=== PATIENT | female | born 1930 | race Caucasian/White ===

== ENCOUNTER → 2016-07-08 | Outpatient (CLI) | payer OTHER ==
[~2016-07-08] MED LIST: ACETAMINOPHEN500 M5 PO; ALLERCLEAR10 MG PO; AMITRIPTYLINE25 MG PO; AMOXICILLIN500 MG PO; AMOXIL500 MG PO; ANTIVERT/2525 M1 PO; ANTIVERT12.5 MG PO; ANTIVERT25 MG PO; ARTIFICIAL TEAR30 M4 OU; ASPIR 8181 MG PO; ASPIR-TRIN325 MG PO; ASPIRIN NON-IR325 MG PO; ASPIRIN325 M2 PO; ASPIRIN325 MG PO; AUGMENTIN 875 M1 TA1 PO; BACTRIM DS 8001 TA1 PO; BACTROBAN2% NAS; BUMETANIDE1 MG PO; BUMETANIDE2 MG PO; BUMEX0.5 MG PO; BUMEX1 MG PO; BUMEX2 MG PO; CEPHALEXIN500 M1 PO; CETERIZINE; CHILDREN'S CLEA10 MG PO; CIPRO250 MG PO; CIPRO500 MG PO; CIPRODEX 0.3%-7.5 ML OT; CIPROFLOXACIN500 MG PO; CITRACAL LIQUI500 MG PO; CLARITIN10 MG PO; CLONIDINE HCL0.1 M1 PO; CLONIDINE0.1 MG PO; CLONIDINE0.2 MG PO; COLACE100 MG PO; COLESTIPOL HYDRO1 GM PO; COMBIVENT1 ARO IH; COMPLETE ALLERG25 M2 PO; COREG12.5 M1 PO; COREG25 MG PO; Carafate1 GM PO; DIOVAN320 MG PO; ELIMITE 5%60 GM PO; FLEXERIL10 MG PO; FLONASE 0.05% 121 EA NAS; FLONASE0.05 MG/AC NS; FLUTICASON0.05 MG/AC NAS; GENACOTE325 MG PO; GLIPIZIDE5 MG PO; GLUCOPHAGE500 M1 PO; HUMALOG100 U/ML; HUMALOG100 U/ML SC; HUMALOG100 UNIT/2 SQ; HUMULIN R100 U/ML SC; HYDROCODONE BIT1 T11 PO; IBU800 M1 PO; IBU800 MG PO; IBUPROFEN400 MG PO; INSULIN-HUMA100 U/ML; JANUVIA100 MG PO; JANUVIA50 MG PO; K-DUR 2020 MEQ PO; K-LOR 20MEQ20 ME1 PO; K-TAB20 MEQ PO; KEFLEX500 MG PO; KENALOG 0.025%15 GM T; KLOR-CON M2020 MEQ PO; LANTUS100 U/ML SC; LIPITOR40 MG PO; LISINOPRIL10 MG PO; LISINOPRIL20 MG PO; LMX4 4% TRANSPAR1 EA PO; LOPRESSOR25 MG PO; LOPRESSOR50 MG PO; LUTEIN; LUTEIN20 MG PO; MACROBID100 M1 PO; MECLIZINE HCL25 M1 PO; MECLIZINE HCL25 M2 PO; MECLIZINE25 MG PO; METFORMIN HCL500 MG PO; METFORMIN500 MG PO; MIRALAX17 GM PO; MIRALAX17 GM/PACK PO; MOTRIN800 MG PO; NORTRIPTYLINE H10 MG PO; NORTRIPTYLINE10 MG PO; NORVASC2.5 MG PO; NORVASC5 MG PO; NOVOLIN R100 U/ML SC; OSCAL,OYSTER S500 MG PO; OXYGEN NAS; OYSTER CALCIUM500 M1 PO; PATANOL 0.1% 5 M5 ML OU; PATANOL 5 ML5 ML OPH; PHENERGAN W/ DE30 ML PO; POTASSIUM CHLO20 MEQ PO; POTASSIUM20 MEQ PO; POTASSIUM99 M2 PO; PRAVACHOL10 MG PO; PRAVACHOL20 MG PO; PRAVACHOL40 MG PO; PRAVASTATIN SOD20 MG PO; PRESERVISION AR1 SGL PO; PRESERVISION LU1 SGL PO; PRESERVISION1 SGL PO; PROTONIX40 MG PO; REFRESH 1 ML1 ML OPH; SERTRALINE HYDR50 MG PO; SERTRALINE50 MG PO; THERAGRAN1 TA2 PO; TOBRAMYCIN 5 ML5 M1 OU; TOUJEO300 U/ML SC; TRAD5TAB1 PO; TYLENOL325 M1 PO; ULTRAM50 MG PO; VANCOMYCIN IV; VIBRAMYCIN100 MG PO; VICODIN 5/500 505 MG PO; VITAMIN D3 PO; VITAMIN E400 IU PO; ZANTAC150 MG PO; ZESTRIL,PRINIVI20 MG PO; ZITHROMAX Z PA250 MG PO; ZOFRAN4 MG PO; ZOLOFT25 MG PO; ZOLOFT50 MG PO; ZYRTEC10 MG PO; [UNRECOGNIZED DRUG - OTHER] PO; [UNRECOGNIZED DRUG - OTHER] PO; [UNRECOGNIZED DRUG - OTHER] PO; [UNRECOGNIZED DRUG - OTHER] PO
[2016-07-08 14:45] LABS: ALBUMIN 3.8 gm/dl (3.1-4.5); ALKALINE PHOSPHATASE 87 U/L (45-117); BILIRUBIN, TOTAL 0.4 mg/dl (0.2-1.0); BUN 22 mg/dl (7-24); CARBON DIOXIDE 31 mmol/L (21-32); CHLORIDE 99 mmol/L (98-107); EST GLOM FILT AFRICAN AMERICAN > 60 ml/min; FREE T4 0.84 ng/dl (0.76-1.46); GLUCOSE 338 mg/dL (65-99); POTASSIUM 3.3 mmol/L (3.5-5.1); SGOT/AST 25 IU/L (3-35); SGPT/ALT 36 U/L (12-78); SODIUM 139 mmol/L (136-145); THYROID STIM HORMONE (HS) 0.914 uIU/ml (0.358-4.75); TOTAL PROTEIN 7.3 gm/dL (6.4-8.2)
== END | disposition home or self-care (01) ==
LOC: LAB 13:26
PROVIDERS: Family Medicine
DX: K59.09 Other constipation (principal)

== ENCOUNTER 2016-09-12 15:12 | Emergency (ER) | payer OTHER ==
[~2016-09-12] VITALS: Ht 160 cm; Wt 72.6 kg
[2016-09-12] MEDS ORDERED: VITAMIN D5000 UNI1 PO (15:40)
[2016-09-12] MEDS ORDERED: ZYRTEC10 M3 PO (15:42)
[2016-09-12] MEDS ORDERED: METFORMIN HYDR500 MG PO (15:42)
[2016-09-12 16:13] LABS: BASO % 0.4 % (0.0-1.0); EOS # 0.2 10*3/uL (0.0-0.4); EOS % 2.8 % (1.0-4.0); HEMATOCRIT 36.3 % (37.0-47.0); HEMOGLOBIN 12.4 g/dl (12.0-16.0); LYMPH % 26.8 % (27.0-41.0); MEAN CELL VOLUME 89.9 fl (81.0-99.0); MEAN CORPUSCULAR HGB 30.7 pg (27.0-31.0); MEAN CORPUSCULAR HGB CONC 34.2 g/dl (33.0-37.0); MEAN PLATELET VOLUME 9.8 fl (9.6-12.3); MONO # 0.5 10*3/uL (0.1-1.0); MONO % 6.5 % (3.0-9.0); NEUT # 4.8 10*3/uL (2.3-7.9); NEUT % 63.2 % (47.0-73.0); PLATELET COUNT AUTOMATED 169 10*3/uL (130-400); RED BLOOD COUNT 4.04 10*6/uL (4.10-5.10); RED CELL DISTRI WIDTH 12.9 % (0-14.5); WHITE BLOOD COUNT 7.6 10*3/uL (4.8-10.8)
[2016-09-12 16:23] LABS: PROTHROMBIN TIME 10.2 SECONDS (9.0-12.4)
[2016-09-12 16:32] LABS: ALBUMIN 3.6 gm/dl (3.1-4.5); ALKALINE PHOSPHATASE 74 U/L (45-117); BILIRUBIN, TOTAL 0.3 mg/dl (0.2-1.0); BUN 15 mg/dl (7-24); CARBON DIOXIDE 24 mmol/L (21-32); CHLORIDE 103 mmol/L (98-107); CPK 104 U/L (26-192); EST GLOM FILT AFRICAN AMERICAN > 60 ml/min; GLUCOSE 94 mg/dL (65-99); LDH 302 U/L (84-246); MAGNESIUM 2.1 mg/dL (1.5-2.1); POTASSIUM 3.9 mmol/L (3.5-5.1); SGOT/AST 23 IU/L (3-35); SGPT/ALT 32 U/L (12-78); SODIUM 139 mmol/L (136-145); TOTAL PROTEIN 7.6 gm/dL (6.4-8.2)
[2016-09-12 16:33] LABS: CKMB 1.6 ng/ml (0.5-3.6)
[2016-09-12 16:38] LABS: TROPONIN I < 0.015 ng/ml (<0.045)
[2016-09-12 16:42] LABS: BILIRUBIN NEGATIVE (NEGATIVE); BLOOD NEGATIVE (NEGATIVE); CLARITY CLEAR (CLEAR); COLOR STRAW (YELLOW); GLUCOSE NEGATIVE (NEGATIVE); KETONE NEGATIVE (NEGATIVE); LEUKO ESTERASE NEGATIVE (NEGATIVE); NITRITE NEGATIVE (NEGATIVE); PROTEIN NEGATIVE (NEGATIVE); SPECIFIC GRAVITY <= 1.005 (1.005-1.030); UROBILINOGEN 0.2 E.U./dl (0.2-1.0)
[2016-09-12 17:11] LABS: RBC 0-2 rbc/hpf (0-2); URINE REFLEX COMMENT NO (NO)
[2016-09-12 17:19] VITALS: BP 160/70
== END 2016-09-12 18:16 | disposition home or self-care (01) ==
LOC: ED 15:12
PROVIDERS: Physician Assistant
DX: R42 Dizziness and giddiness (principal); Z90.49 Acquired absence of other specified parts of digestive tract; Z79.4 Long term (current) use of insulin; Z79.82 Long term (current) use of aspirin

== ENCOUNTER 2016-09-14 12:39 | Emergency (ER) | payer OTHER ==
[~2016-09-14] VITALS: Wt 72.6 kg
[~2016-09-14 12:39] MED LIST changes: +METFORMIN HYDR500 MG PO; +VITAMIN D5000 UNI1 PO; +ZYRTEC10 M3 PO
[2016-09-14 12:48] VITALS: BP 160/81
[2016-09-14 13:35] LABS: BASO % 0.3 % (0.0-1.0); EOS # 0.2 10*3/uL (0.0-0.4); EOS % 2.2 % (1.0-4.0); HEMATOCRIT 34.9 % (37.0-47.0); HEMOGLOBIN 11.8 g/dl (12.0-16.0); LYMPH # 1.3 10*3/uL (1.3-4.4); LYMPH % 17.1 % (27.0-41.0); MEAN CORPUSCULAR HGB 30.1 pg (27.0-31.0); MEAN CORPUSCULAR HGB CONC 33.8 g/dl (33.0-37.0); MEAN PLATELET VOLUME 9.6 fl (9.6-12.3); MONO # 0.5 10*3/uL (0.1-1.0); MONO % 6.9 % (3.0-9.0); NEUT # 5.7 10*3/uL (2.3-7.9); NEUT % 73.1 % (47.0-73.0); PLATELET COUNT AUTOMATED 169 10*3/uL (130-400); RED BLOOD COUNT 3.92 10*6/uL (4.10-5.10); RED CELL DISTRI WIDTH 12.9 % (0-14.5); WHITE BLOOD COUNT 7.8 10*3/uL (4.8-10.8)
[2016-09-14 13:42] LABS: PROTHROMBIN TIME 10.6 SECONDS (9.0-12.4)
[2016-09-14 13:50] LABS: ALBUMIN 3.6 gm/dl (3.1-4.5); ALKALINE PHOSPHATASE 70 U/L (45-117); BILIRUBIN, TOTAL 0.4 mg/dl (0.2-1.0); BUN 21 mg/dl (7-24); CARBON DIOXIDE 25 mmol/L (21-32); CHLORIDE 103 mmol/L (98-107); EST GLOM FILT AFRICAN AMERICAN > 60 ml/min; GLUCOSE 73 mg/dL (65-99); MAGNESIUM 2.1 mg/dL (1.5-2.1); POTASSIUM 3.3 mmol/L (3.5-5.1); SGOT/AST 18 IU/L (3-35); SGPT/ALT 27 U/L (12-78); SODIUM 139 mmol/L (136-145); TOTAL PROTEIN 7.3 gm/dL (6.4-8.2)
[2016-09-14 13:52] LABS: TROPONIN I < 0.015 ng/ml (<0.045)
[2016-09-14 13:56] LABS: BILIRUBIN NEGATIVE (NEGATIVE); BLOOD NEGATIVE (NEGATIVE); CLARITY SL CLOUDY (CLEAR); COLOR YELLOW (YELLOW); GLUCOSE NEGATIVE (NEGATIVE); KETONE NEGATIVE (NEGATIVE); LEUKO ESTERASE NEGATIVE (NEGATIVE); NITRITE NEGATIVE (NEGATIVE); PROTEIN NEGATIVE (NEGATIVE); SPECIFIC GRAVITY 1.015 (1.005-1.030); UROBILINOGEN 0.2 E.U./dl (0.2-1.0)
[2016-09-14 14:05] LABS: RBC 0-2 rbc/hpf (0-2)
[2016-09-14 14:06] LABS: BACTERIA 1+; URINE REFLEX COMMENT NO (NO)
[2016-09-15] MEDS ORDERED: TOBRADEX 0.1%-2.5 M1 OPH (12:26)
== END 2016-09-14 14:48 | disposition home or self-care (01) ==
LOC: ED 12:39
PROVIDERS: Nurse Practitioner Family
DX: R42 Dizziness and giddiness (principal); I50.9 Heart failure, unspecified; J44.9 Chronic obstructive pulmonary disease, unspecified; F32.9 Major depressive disorder, single episode, unspecified; I10 Essential (primary) hypertension; K21.9 Gastro-esophageal reflux disease without esophagitis; E78.5 Hyperlipidemia, unspecified; E11.65 Type 2 diabetes mellitus with hyperglycemia; M19.90 Unspecified osteoarthritis, unspecified site; E55.9 Vitamin D deficiency, unspecified; Z90.49 Acquired absence of other specified parts of digestive tract; Z96.651 Presence of right artificial knee joint; Z90.710 Acquired absence of both cervix and uterus; Z79.82 Long term (current) use of aspirin; Z79.899 Other long term (current) drug therapy

== ENCOUNTER → 2016-09-21 | Day surgery (SDC) | payer OTHER ==
[~2016-09-21] VITALS: Ht 160 cm; Wt 74.8 kg
[~2016-09-21] MED LIST changes: +TOBRADEX 0.1%-2.5 M1 OPH
--- NOTE | ~2016-09-21 | O ---
[place], [place] OPERATIVE NOTE [id number] UNIT #: [id number] ROOM: DO[facility] BIRTH[facility] [birth year] DOS: 09/21/2016 GASTROENDOSCOPIC REPORT HISTORY OF PRESENT ILLNESS: An 86-year-old patient who has presented with chief complaint of diarrhea, abdominal pain, cramp, undergoing investigation. ALLERGIES: No known medications. FAMILY HISTORY: Noncontributory. 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 PAST MEDICAL HISTORY: Hypertension, diabetes mellitus, hypercholesterolemia, diarrhea. SOCIAL HISTORY: Nonsmoker, nonalcohol consumer. PROCEDURE: Today's procedure part of investigation is colonoscopy plus random biopsy plus piecemeal polypectomy of sigmoid colon sessile polyps. PREMEDICATION: Versed and Diprivan. SCOPE: Olympus forward-viewing colonoscope 10L video. REPORT: After putting the patient in the left lateral position and application of lubricant to rectal pouch and digital examination, scope was introduced. Thereafter, under direct visualization, I advanced through the length of colon without difficulty. Sessile polypoid lesion in sigmoid colon with piecemeal polypectomy was removed. Diverticulosis of sigmoid colon moderate degree was identified. Tortuosity of colon was appreciated. Scope negotiated all the way to base of cecum. Ileocecal valve was defined. Appendiceal orifice was photographed. Scope was gradually withdrawn from ascending, transverse, and descending colon. The patient extubated after random biopsy of colon was for microscopic colitis. IMPRESSION: Sigmoid diverticulosis of moderate degree, sessile polypoid lesion in sigmoid colon, status post piecemeal polypectomy, status post random biopsy of the transverse colon for microscopic colitis ruling out, also tortuosity of colon, particularly in left colon. PLAN AND DISCUSSION: The patient was advised to abstain from intake of MiraLax, which I believe to be her culprit in her diarrhea and abdominal cramp. Limited MiraLax, only 2 p.r.n. use or if she has to Monday, Monday, Monday half a dose intake to soften her stool and allow her evacuation. At this stage, she is dependent on satisfaction from her bowel movement. We will with high fiber diet. Thank you very much indeed. [place], [place] OPERATIVE NOTE NAME: JOHANNE MALDONADO UNIT #: [id number] ROOM: DOCTOR: AFUA MONTOYA,NOAH BIRTHDATE: [birth year] Sincerely yours. NOAH CAAL MD CM:OPRECORD:OPERATIVE NOTE 1051 NOAH CAAL MD 09/21/16 1208 interface
[2016-09-21 08:30] VITALS: BP 131/77
[2016-09-21 10:45] VITALS: BP 126/51
[2016-09-21 11:00] VITALS: BP 134/69
[2016-09-21 11:15] VITALS: BP 139/73
== END | disposition home or self-care (01) ==
LOC: SDC 09-16 08:45
DX: K63.5 Polyp of colon (principal); C76.0 Malignant neoplasm of head, face and neck; I10 Essential (primary) hypertension; E11.9 Type 2 diabetes mellitus without complications; E78.00 Pure hypercholesterolemia, unspecified; K57.30 Diverticulosis of large intestine without perforation or abscess without bleeding; F32.9 Major depressive disorder, single episode, unspecified; J44.9 Chronic obstructive pulmonary disease, unspecified; M81.0 Age-related osteoporosis without current pathological fracture; M19.90 Unspecified osteoarthritis, unspecified site; Z90.710 Acquired absence of both cervix and uterus; Z95.0 Presence of cardiac pacemaker; Z82.3 Family history of stroke; Z82.49 Family history of ischemic heart disease and other diseases of the circulatory system; Z87.891 Personal history of nicotine dependence

== ENCOUNTER → 2016-10-06 | Outpatient (CLI) | payer OTHER | END | disposition home or self-care (01) | LOC: RAD 13:11 | DX: J44.9 Chronic obstructive pulmonary disease, unspecified (principal); I10 Essential (primary) hypertension; E11.9 Type 2 diabetes mellitus without complications; Z95.0 Presence of cardiac pacemaker ==

== ENCOUNTER 2016-10-11 00:26 | Inpatient (IN) | payer OTHER ==
[~2016-10-11] VITALS: Ht 160 cm; Wt 76.3 kg
[2016-10-11] VITALS (12 sets, daily range): BP systolic 116–158; BP diastolic 52–98
--- NOTE | ~2016-10-11 | ST ---
[place], [place] EXERCISE STRESS TEST REPORT NAME: JOHANNE MALDONADO UNIT #: [id number] ROOM: 503 DOCTOR: SADIQ HUDSON MD BIRTHDATE: [birth year] DOS: 10/11/2016 Lexiscan portion of the test was dictated earlier and the patient received 12.7 millicurie of sestamibi at rest ____ was obtained. Gated imaage showed an ejection fraction of 72% and diastolic and systolic dimensions were normal. SPECT imaging revealed normal perfusion without any reversibility The right ventricle is normal, left ventricular wall ____ normal limits. FINAL IMPRESSION: Normal Lexiscan Cardiolite SPECT imaging study without ischemia. Ejection fraction well preserved ____ SPECT. Right ventricle is normal. Left ventricle ____ normal. ____ ratio within normal limits. SADIQ HUDSON MD CM:STRESS:EXERCISE STRESS TEST REPORT 1500 [id number] SADIQ HUDSON MD
--- NOTE | ~2016-10-11 | PR ---
[place], [place] PROGRESS NOTE NAME: [facility] [id number] UNIT #: [id number] ROOM: 503 DOCTOR: FLOR SIDDIQI MD BIRTHDATE: [birth year] DOS: SUBJECTIVE: This is a patient that I see regularly in my office and I also saw her in this hospital and put in a dual chamber pacemaker for severe bradycardia in 2012, and for whatever reason, Dr. Telles was consulted as the sample selector. She had left lateral chest pain and also left-sided abdominal pain as well, it feels that somebody is punching her. Dr. Telles did a stress Cardiolite on her and did not demonstrate any ischemia. She still has the same discomfort. She has not had any nausea or vomiting, no blood in the stools. She has not had any cough. OBJECTIVE: GENERAL: She looks well. Complexion is fine. NECK: Pulses are regular. JVP is normal. LUNGS: Breath sounds are diminished bilaterally. IMPRESSION: This patient has a dual chamber pacemaker for severe symptomatic bradycardia, which has been interrogated in my office and is functioning normally. Chest and abdominal pain is noncardiac. Stress test is negative. From Cardiac standpoint, she may be discharged home and I would see her in my office as previously scheduled. FLOR SIDDIQI MD CM:PNTRANS [phone] FLOR SIDDIQI MD 10/14/16 0116 interface
--- NOTE | ~2016-10-11 | CON ---
[place], [place] REPORT OF CONSULTATION NAME: [id number] UNIT #: [id number] ROOM: 503 DOCTOR: JETHRO TOLENTINO DPM BIRTHDATE: [birth year] DOS: 10/13/2016 SUBJECTIVE: The patient presents as an 86-year-old female with elongated, thickened, ingrown nails of the third and fourth toes of both feet. PAST MEDICAL HISTORY: Includes acute renal failure, asymptomatic bacteremia, ataxia, benign positional vertigo, CHF, COPD, depression, diabetes, essential hypertension, general weakness, GERD, history of stroke with residual right facial droop, hyperlipidemia, hyperglycemia due to type 2 diabetes, hypokalemia, osteoarthritis, urinary incontinence, vertigo, vitamin D deficiency. PAST SURGICAL HISTORY: Appendectomy, knee replacement, right knee. Left cataract surgery, permanent cardiac pacemaker placement, cardiac catheterization, cholecystectomy, hysterectomy, and tonsillectomy. SOCIAL HISTORY: Denies alcohol, illicit drug use or tobacco. FAMILY HISTORY: Mother at 87 of dementia. Father at 93 of stroke. ALLERGIES: No known allergies. PHYSICAL EXAMINATION: EXTREMITIES: Lower extremity examination: Pedal pulses diminished with decreased hair growth, nail thickening, pigmentary discoloration, temperature changes and edema. Crumbly, thickened, yellow, dystrophic, mycotic nails, toes 3 and 4 bilateral foot, incurvated nail border medial third right toe with subungual inflammation, localized erythema, but no signs of infection. ASSESSMENT: Onychomycosis, peripheral vascular disease, onychocryptosis. PLAN: Evaluation and management. Debrided nails third and fourth toes bilateral, debrided incurvated nail border, third right toe. Thank you for the kind consultation. JETHRO TOLENTINO DPM CM:CONSTR:REPORT OF CONSULTATION 1222 10/14/16 0347 interface
--- NOTE | ~2016-10-11 | CON ---
[place], [place] REPORT OF CONSULTATION NAME: JOHANNE MALDONADO UNIT #: [id number] ROOM: 503 DOCTOR: SADIQ HUDSON MD BIRTHDATE: [birth year] DOS: 10/11/2016 HISTORY OF PRESENT ILLNESS: The patient is an 86-year-old female with a past medical history of hypertension, came in last night. She had significant pain across the left precordial area. She does have history of permanent pacemaker, history of congestive heart failure in the past. The patient describes the pain as dull in nature, radiating down the left side. The patient, as mentioned, she had a pacemaker, no acute EKG changes suggestion of myocardial injury or infarction. Cardiac enzymes have been normal so far, the patient has been scheduled for a stress test today. PAST MEDICAL HISTORY: Significant for renal failure, asymptomatic bacteriuria, benign positional vertigo, congestive heart failure, COPD, depression, diabetes mellitus and hyperlipidemia. PAST SURGICAL HISTRORY: Knee replacement, cataract surgery, permanent pacemaker, cholecystectomy and previous cardiac catheterization without any stents. SOCIAL HISTORY: Denies any drug abuse or alcohol abuse. FAMILY HISTORY: Positive for coronary artery disease. ALLERGIES: None. HOME MEDICATIONS: Amlodipine, carvedilol, aspirin, insulin. REVIEW OF SYSTEMS: CONSTITUTIONAL: No fever, no chills. HEENT: No visual disturbances or hearing problems. CARDIOVASCULAR: As described in HPI. GASTROINTESTINAL: No nausea, no vomiting. RESPIRATORY: No shortness of breath. GENITOURINARY: No dysuria, hematuria. NEUROLOGIC: Intact. PSYCHIATRIC: Intact. ENDOCRINE: Intact. SKIN: Normal. PHYSICAL EXAMINATION: VITAL SIGNS: Blood pressure is 140/60. The patient is in sinus rhythm, no acute EKG changes. HEENT: Unremarkable. NECK: Supple, no JVD, no thyromegaly, and no lymphadenopathy. LUNGS: Clear to auscultation and percussion. HEART: Heart rate is regular rate and rhythm. ABDOMEN: Obese, soft, nontender, good bowel sounds. EXTREMITIES: No edema. NEUROLOGIC: Stable. [place], [place] REPORT OF CONSULTATION NAME: JOHANNE MALDONADO UNIT #: [id number] ROOM: 503 DOCTOR: SADIQ HUDSON MD BIRTHDATE: [birth year] LABORATORY DATA: Electrolytes are normal. Creatinine is normal. BUN is 24, creatinine is 1.2. Liver functions are normal. INR is normal, hemoglobin and hematocrit ____, platelet count is normal. Chest x-ray, no acute pulmonary abnormalities. IMPRESSION: The patient with chest pain, acute renal failure. Creatinine was mildly elevated blood pressure, hypertension, diabetes mellitus, and permanent pacemaker. The patient felt like her alarm went off the pacemaker. I am going to have the pacer interrogated. Cardiac status appears to be stable. RECOMMENDATIONS: Continue the present care. We will proceed with Lexiscan Cardiolite stress test. Continue her home medications. Continue to monitor and I will follow up. SADIQ HUDSON MD CM:CONSTR:REPORT OF CONSULTATION 0731 10/11/16 0843 interface
[~2016-10-11 00:26] MED LIST changes: +OMNICEF300 MG PO
[2016-10-11] MEDS ORDERED: PRAVACHOL20 MG PO (00:37)
[2016-10-11] MEDS ORDERED: DYAZIDE 25 MG-31 CAP PO (00:38)
[2016-10-11 00:55] LABS: BASO % 0.5 % (0.0-1.0); EOS # 0.3 10*3/uL (0.0-0.4); EOS % 5.1 % (1.0-4.0); HEMATOCRIT 35.1 % (37.0-47.0); HEMOGLOBIN 11.8 g/dl (12.0-16.0); LYMPH # 1.9 10*3/uL (1.3-4.4); LYMPH % 28.1 % (27.0-41.0); MEAN CELL VOLUME 88.6 fl (81.0-99.0); MEAN CORPUSCULAR HGB 29.8 pg (27.0-31.0); MEAN CORPUSCULAR HGB CONC 33.6 g/dl (33.0-37.0); MEAN PLATELET VOLUME 10.5 fl (9.6-12.3); MONO # 0.5 10*3/uL (0.1-1.0); MONO % 7.7 % (3.0-9.0); NEUT # 3.9 10*3/uL (2.3-7.9); NEUT % 58.1 % (47.0-73.0); PLATELET COUNT AUTOMATED 162 10*3/uL (130-400); RED BLOOD COUNT 3.96 10*6/uL (4.10-5.10); RED CELL DISTRI WIDTH 12.8 % (0-14.5); WHITE BLOOD COUNT 6.7 10*3/uL (4.8-10.8)
[2016-10-11 01:05] LABS: PROTHROMBIN TIME 10.3 SECONDS (9.0-12.4)
[2016-10-11 01:11] LABS: ALBUMIN 3.7 gm/dl (3.1-4.5); ALKALINE PHOSPHATASE 80 U/L (45-117); BILIRUBIN, TOTAL 0.3 mg/dl (0.2-1.0); BUN 24 mg/dl (7-24); CARBON DIOXIDE 25 mmol/L (21-32); CHLORIDE 102 mmol/L (98-107); EST GLOM FILT AFRICAN AMERICAN 51 ml/min; GLUCOSE 318 mg/dL (65-99); MAGNESIUM 2.4 mg/dL (1.5-2.1); POTASSIUM 3.6 mmol/L (3.5-5.1); SGOT/AST 20 IU/L (3-35); SGPT/ALT 30 U/L (12-78); SODIUM 135 mmol/L (136-145); TOTAL PROTEIN 7.3 gm/dL (6.4-8.2)
[2016-10-11 01:13] LABS: TROPONIN I < 0.015 ng/ml (<0.045)
[2016-10-11] MEDS ORDERED: VITAMIN D50000 I3 PO (05:53)
[2016-10-11 06:30] LABS: CKMB 1.4 ng/ml (0.5-3.6); CPK 84 U/L (26-192)
[2016-10-11 06:55] LABS: TROPONIN I < 0.015 ng/ml (<0.045)
[2016-10-11 12:22] LABS: CKMB 1.5 ng/ml (0.5-3.6); CPK 84 U/L (26-192)
[2016-10-11 12:25] LABS: TROPONIN I < 0.015 ng/ml (<0.045)
[2016-10-11 18:52] LABS: CKMB 1.2 ng/ml (0.5-3.6); CPK 87 U/L (26-192); TROPONIN I < 0.015 ng/ml (<0.045)
[2016-10-12 00:12] VITALS: BP 133/89
[2016-10-12 07:15] LABS: BASO % 0.5 % (0.0-1.0); EOS # 0.3 10*3/uL (0.0-0.4); EOS % 5.9 % (1.0-4.0); HEMATOCRIT 34.7 % (37.0-47.0); HEMOGLOBIN 11.7 g/dl (12.0-16.0); LYMPH # 1.7 10*3/uL (1.3-4.4); LYMPH % 29.9 % (27.0-41.0); MEAN CELL VOLUME 87.6 fl (81.0-99.0); MEAN CORPUSCULAR HGB 29.5 pg (27.0-31.0); MEAN CORPUSCULAR HGB CONC 33.7 g/dl (33.0-37.0); MEAN PLATELET VOLUME 10.5 fl (9.6-12.3); MONO # 0.4 10*3/uL (0.1-1.0); MONO % 7.3 % (3.0-9.0); NEUT # 3.2 10*3/uL (2.3-7.9); NEUT % 55.9 % (47.0-73.0); PLATELET COUNT AUTOMATED 179 10*3/uL (130-400); RED BLOOD COUNT 3.96 10*6/uL (4.10-5.10); RED CELL DISTRI WIDTH 12.6 % (0-14.5); WHITE BLOOD COUNT 5.8 10*3/uL (4.8-10.8)
[2016-10-12 07:30] LABS: HEMOGLOBIN A1c 8.1 % (4.8-5.6)
[2016-10-12 07:36] LABS: ALBUMIN 3.6 gm/dl (3.1-4.5); ALKALINE PHOSPHATASE 78 U/L (45-117); BILIRUBIN, TOTAL 0.4 mg/dl (0.2-1.0); BUN 21 mg/dl (7-24); CARBON DIOXIDE 29 mmol/L (21-32); CHLORIDE 104 mmol/L (98-107); CHOLESTEROL 139 mg/dL (<200); EST GLOM FILT AFRICAN AMERICAN > 60 ml/min; FREE T4 0.87 ng/dl (0.76-1.46); GLUCOSE 184 mg/dL (65-99); HDL CHOLESTEROL 47 mg/dl (40-60); LDL CHOLESTEROL 68 mg/dL (9-159); MAGNESIUM 2.5 mg/dL (1.5-2.1); PHOSPHOROUS 3.9 mg/dL (2.5-4.9); POTASSIUM 3.1 mmol/L (3.5-5.1); SGOT/AST 16 IU/L (3-35); SGPT/ALT 27 U/L (12-78); SODIUM 142 mmol/L (136-145); TRIGLYCERIDES 119 mg/dl (<150); VLDL CHOLESTEROL 24 mg/dL (6-40)
[2016-10-12 07:44] LABS: PROTHROMBIN TIME 10.2 SECONDS (9.0-12.4)
[2016-10-12 08:00] VITALS: BP 118/54
[2016-10-12 08:40] LABS: FOLIC ACID 22.54 ng/mL (>5.38); VITAMIN D, 25-HYDROXY 51.1 ng/mL (30-100)
[2016-10-12 12:00] VITALS: BP 110/59
[2016-10-12 16:00] VITALS: BP 129/79
[2016-10-12 20:00] VITALS: BP 105/71
[2016-10-13 00:08] VITALS: BP 145/86
[2016-10-13 06:50] LABS: POTASSIUM 4.1 mmol/L (3.5-5.1)
[2016-10-13 08:00] VITALS: BP 146/72
[2016-10-13 12:00] VITALS: BP 156/80
== END 2016-10-13 14:05 | disposition home or self-care (01) | DRG 683 ==
LOC: ED 00:26 → EDHOLD 01:50 → 5E 01:50
PROVIDERS: Emergency Medicine Emergency Medical Services; Internal Medicine; Student in an Organized Health Care Education/Training Program
PROC: 0HBRXZZ Excision of Toe Nail, External Approach (ICD-10-PCS; principal; 2016-10-13)
DX: N17.0 Acute kidney failure with tubular necrosis (principal); I50.32 Chronic diastolic (congestive) heart failure; E11.51 Type 2 diabetes mellitus with diabetic peripheral angiopathy without gangrene; I11.0 Hypertensive heart disease with heart failure; F33.9 Major depressive disorder, recurrent, unspecified; R07.89 Other chest pain; E11.65 Type 2 diabetes mellitus with hyperglycemia; B35.1 Tinea unguium; J44.9 Chronic obstructive pulmonary disease, unspecified; J01.10 Acute frontal sinusitis, unspecified; M19.91 Primary osteoarthritis, unspecified site; E78.2 Mixed hyperlipidemia; H81.10 Benign paroxysmal vertigo, unspecified ear; R32 Unspecified urinary incontinence; E55.9 Vitamin D deficiency, unspecified; K21.9 Gastro-esophageal reflux disease without esophagitis; L60.0 Ingrowing nail; Z96.651 Presence of right artificial knee joint; Z98.42 Cataract extraction status, left eye; Z90.49 Acquired absence of other specified parts of digestive tract; Z90.710 Acquired absence of both cervix and uterus; Z83.3 Family history of diabetes mellitus; Z80.3 Family history of malignant neoplasm of breast; Z82.3 Family history of stroke; Z95.0 Presence of cardiac pacemaker; Z84.89 Family history of other specified conditions; Z82.49 Family history of ischemic heart disease and other diseases of the circulatory system; Z79.82 Long term (current) use of aspirin; Z79.4 Long term (current) use of insulin; Z79.899 Other long term (current) drug therapy; I69.392 Facial weakness following cerebral infarction

== ENCOUNTER 2016-11-05 10:43 | Emergency (ER) | payer OTHER ==
[~2016-11-05] VITALS: Ht 160 cm; Wt 73.9 kg
[~2016-11-05 10:43] MED LIST changes: +DYAZIDE 25 MG-31 CAP PO; +VITAMIN D50000 I3 PO
[2016-11-05 11:25] VITALS: BP 124/67
[2016-11-05] MEDS ORDERED: NAPROSYN500 MG PO (11:56)
[2016-11-05] MEDS ORDERED: CYCLOBENZAPRINE5 M3 PO (11:56)
[2016-12-08] MEDS ORDERED: AUGMENTIN 875-875 MG PO (15:24)
[2016-12-14] MEDS ORDERED: VITAMIN D50000 I3 PO (20:51)
[2016-12-15] MEDS ORDERED: DUONEB 3 MG/3 ML3 M1 INH (10:04)
[2016-12-15] MEDS ORDERED: METFORMIN500 MG PO (10:06)
[2016-12-18] MEDS ORDERED: ELIQUIS5 M1 PO (14:29)
[2016-12-18] MEDS ORDERED: BACTRIM DS 8001 TAB PO (14:29)
== END 2016-11-05 12:00 | disposition home or self-care (01) ==
LOC: ED 10:43
DX: M54.32 Sciatica, left side (principal); Z79.82 Long term (current) use of aspirin; Z79.4 Long term (current) use of insulin; Z90.49 Acquired absence of other specified parts of digestive tract; Z79.899 Other long term (current) drug therapy

== ENCOUNTER 2016-11-06 16:52 | Emergency (ER) | payer OTHER ==
[~2016-11-06] VITALS: Ht 160 cm; Wt 73.9 kg
[~2016-11-06 16:52] MED LIST changes: +CYCLOBENZAPRINE5 M3 PO; +NAPROSYN500 MG PO
[2016-11-06 16:57] VITALS: BP 166/80
[2016-11-06 17:20] LABS: BASO % 0.4 % (0.0-1.0); EOS # 0.1 10*3/uL (0.0-0.4); EOS % 2.1 % (1.0-4.0); HEMATOCRIT 37.6 % (37.0-47.0); HEMOGLOBIN 12.7 g/dl (12.0-16.0); LYMPH # 1.6 10*3/uL (1.3-4.4); LYMPH % 33.6 % (27.0-41.0); MEAN CELL VOLUME 88.7 fl (81.0-99.0); MEAN CORPUSCULAR HGB CONC 33.8 g/dl (33.0-37.0); MONO # 0.4 10*3/uL (0.1-1.0); MONO % 8.1 % (3.0-9.0); NEUT # 2.6 10*3/uL (2.3-7.9); NEUT % 55.2 % (47.0-73.0); PLATELET COUNT AUTOMATED 150 10*3/uL (130-400); RED BLOOD COUNT 4.24 10*6/uL (4.10-5.10); RED CELL DISTRI WIDTH 13.1 % (0-14.5); WHITE BLOOD COUNT 4.8 10*3/uL (4.8-10.8)
[2016-11-06 17:34] LABS: ALBUMIN 4.2 gm/dl (3.1-4.5); BILIRUBIN, TOTAL 0.7 mg/dl (0.2-1.0); POTASSIUM 4.3 mmol/L (3.5-5.1); TOTAL PROTEIN 7.7 gm/dL (6.4-8.2)
== END 2016-11-06 19:34 | disposition home or self-care (01) ==
LOC: ED 16:52
PROVIDERS: Nurse Practitioner Family
DX: R60.0 Localized edema (principal); Z90.49 Acquired absence of other specified parts of digestive tract; Z95.0 Presence of cardiac pacemaker; Z95.5 Presence of coronary angioplasty implant and graft; Z79.4 Long term (current) use of insulin; Z79.82 Long term (current) use of aspirin; Z79.899 Other long term (current) drug therapy

== ENCOUNTER 2016-11-08 11:25 | Emergency (ER) | payer OTHER ==
[~2016-11-08] VITALS: Ht 160 cm; Wt 75.7 kg
[2016-11-08 11:34] VITALS: BP 168/90
[2016-11-08 12:29] LABS: BASO % 0.4 % (0.0-1.0); EOS # 0.1 10*3/uL (0.0-0.4); EOS % 2.2 % (1.0-4.0); HEMATOCRIT 36.3 % (37.0-47.0); LYMPH # 1.2 10*3/uL (1.3-4.4); LYMPH % 25.7 % (27.0-41.0); MEAN CELL VOLUME 89.4 fl (81.0-99.0); MEAN CORPUSCULAR HGB 29.6 pg (27.0-31.0); MEAN CORPUSCULAR HGB CONC 33.1 g/dl (33.0-37.0); MEAN PLATELET VOLUME 10.6 fl (9.6-12.3); MONO # 0.4 10*3/uL (0.1-1.0); MONO % 7.9 % (3.0-9.0); NEUT # 2.9 10*3/uL (2.3-7.9); NEUT % 63.1 % (47.0-73.0); PLATELET COUNT AUTOMATED 156 10*3/uL (130-400); RED BLOOD COUNT 4.06 10*6/uL (4.10-5.10); WHITE BLOOD COUNT 4.6 10*3/uL (4.8-10.8)
[2016-11-08 12:43] LABS: ALBUMIN 4.1 gm/dl (3.1-4.5); ALKALINE PHOSPHATASE 96 U/L (45-117); BILIRUBIN, TOTAL 0.6 mg/dl (0.2-1.0); BUN 19 mg/dl (7-24); CARBON DIOXIDE 33 mmol/L (21-32); CHLORIDE 101 mmol/L (98-107); EST GLOM FILT AFRICAN AMERICAN > 60 ml/min; GLUCOSE 341 mg/dL (65-99); POTASSIUM 4.6 mmol/L (3.5-5.1); SGOT/AST 15 IU/L (3-35); SGPT/ALT 25 U/L (12-78); SODIUM 139 mmol/L (136-145); TOTAL PROTEIN 7.5 gm/dL (6.4-8.2)
[2016-11-08 13:38] LABS: BILIRUBIN NEGATIVE (NEGATIVE); BLOOD NEGATIVE (NEGATIVE); CLARITY CLEAR (CLEAR); COLOR YELLOW (YELLOW); GLUCOSE 3+ (NEGATIVE); KETONE NEGATIVE (NEGATIVE); LEUKO ESTERASE NEGATIVE (NEGATIVE); NITRITE NEGATIVE (NEGATIVE); PH 5.5 (5.0-9.0); PROTEIN NEGATIVE (NEGATIVE); UROBILINOGEN 0.2 E.U./dl (0.2-1.0)
[2016-11-08 13:44] LABS: BACTERIA TRACE; URINE REFLEX COMMENT NO (NO)
== END 2016-11-08 14:48 | disposition home or self-care (01) ==
LOC: ED 11:25
PROVIDERS: Registered Nurse
DX: M25.561 Pain in right knee (principal); Z90.49 Acquired absence of other specified parts of digestive tract; Z96.651 Presence of right artificial knee joint; Z95.0 Presence of cardiac pacemaker; Z90.710 Acquired absence of both cervix and uterus; Z98.42 Cataract extraction status, left eye; Z79.82 Long term (current) use of aspirin; Z79.899 Other long term (current) drug therapy; W19.XXXA Unspecified fall, initial encounter; Y93.89 Activity, other specified; Y92.89 Other specified places as the place of occurrence of the external cause; Y99.9 Unspecified external cause status

== ENCOUNTER 2016-11-09 16:18 | Inpatient (IN) | payer OTHER ==
[~2016-11-09] VITALS: Ht 160 cm; Wt 79.5 kg
--- NOTE | ~2016-11-09 | EKG ---
[place], [place] ELECTROCARDIOGRAM REPORT NAME: JOHANNE MALDONADO UNIT #: [id number] ROOM: 421 DOCTOR: FLOR SIDDIQI MD BIRTHDATE: [birth year] DOS: 11/09/2016 TIME: 1642 hours. Atrial pacing at 102 beats per minute. Left anterior hemiblock with mild prolonged QRS interval. An abnormal ECG. No previous tracing is available for comparison. FLRO SIDDIQI MD CM:EKGRPT:ELECTROCARDIOGRAM REPORT 1127 1223 FLOR SIDDIQI MD
[2016-11-09 16:32] VITALS: BP 134/66; BP 174/66
[2016-11-09 17:10] LABS: BASO % 0.4 % (0.0-1.0); EOS # 0.1 10*3/uL (0.0-0.4); EOS % 2.4 % (1.0-4.0); HEMATOCRIT 36.5 % (37.0-47.0); HEMOGLOBIN 12.4 g/dl (12.0-16.0); LYMPH # 1.7 10*3/uL (1.3-4.4); LYMPH % 31.9 % (27.0-41.0); MEAN CELL VOLUME 88.2 fl (81.0-99.0); MEAN PLATELET VOLUME 10.2 fl (9.6-12.3); MONO # 0.4 10*3/uL (0.1-1.0); NEUT # 3.1 10*3/uL (2.3-7.9); NEUT % 57.6 % (47.0-73.0); PLATELET COUNT AUTOMATED 169 10*3/uL (130-400); RED BLOOD COUNT 4.14 10*6/uL (4.10-5.10); RED CELL DISTRI WIDTH 12.9 % (0-14.5); WHITE BLOOD COUNT 5.4 10*3/uL (4.8-10.8)
[2016-11-09 17:25] LABS: ALKALINE PHOSPHATASE 94 U/L (45-117); BILIRUBIN, TOTAL 0.5 mg/dl (0.2-1.0); BUN 14 mg/dl (7-24); C-REACTIVE PROTEIN 0.92 MG/DL (0-0.3); CARBON DIOXIDE 31 mmol/L (21-32); CHLORIDE 102 mmol/L (98-107); CKMB 1.5 ng/ml (0.5-3.6); CPK 89 U/L (26-192); EST GLOM FILT AFRICAN AMERICAN > 60 ml/min; GLUCOSE 196 mg/dL (65-99); MAGNESIUM 2.4 mg/dL (1.5-2.1); SGOT/AST 20 IU/L (3-35); SGPT/ALT 28 U/L (12-78); SODIUM 141 mmol/L (136-145); TOTAL PROTEIN 7.5 gm/dL (6.4-8.2)
[2016-11-09 17:26] LABS: TROPONIN I < 0.015 ng/ml (<0.045)
[2016-11-09 17:45] LABS: PROTHROMBIN TIME 10.1 SECONDS (9.0-12.4)
[2016-11-09 17:47] VITALS: BP 182/90
[2016-11-09 17:55] LABS: BILIRUBIN NEGATIVE (NEGATIVE); BLOOD NEGATIVE (NEGATIVE); CLARITY CLEAR (CLEAR); COLOR YELLOW (YELLOW); GLUCOSE TRACE (NEGATIVE); KETONE NEGATIVE (NEGATIVE); LEUKO ESTERASE NEGATIVE (NEGATIVE); NITRITE NEGATIVE (NEGATIVE); PROTEIN NEGATIVE (NEGATIVE); SPECIFIC GRAVITY <= 1.005 (1.005-1.030); UROBILINOGEN 0.2 E.U./dl (0.2-1.0)
[2016-11-09 18:04] LABS: WBC 0-2 wbc/hpf (0-5)
[2016-11-09 18:05] LABS: URINE REFLEX COMMENT NO (NO)
[2016-11-09 21:17] VITALS: BP 164/98
[2016-11-10] VITALS: BP 135/76
[2016-11-10 00:29] LABS: CKMB 1.3 ng/ml (0.5-3.6); CPK 88 U/L (26-192)
[2016-11-10 00:31] LABS: TROPONIN I < 0.015 ng/ml (<0.045)
[2016-11-10 06:22] LABS: BASO % 0.4 % (0.0-1.0); EOS # 0.1 10*3/uL (0.0-0.4); EOS % 2.4 % (1.0-4.0); HEMATOCRIT 35.5 % (37.0-47.0); HEMOGLOBIN 11.9 g/dl (12.0-16.0); LYMPH # 1.4 10*3/uL (1.3-4.4); LYMPH % 29.5 % (27.0-41.0); MEAN CELL VOLUME 88.5 fl (81.0-99.0); MEAN CORPUSCULAR HGB 29.7 pg (27.0-31.0); MEAN CORPUSCULAR HGB CONC 33.5 g/dl (33.0-37.0); MONO # 0.4 10*3/uL (0.1-1.0); NEUT # 2.7 10*3/uL (2.3-7.9); NEUT % 57.8 % (47.0-73.0); PLATELET COUNT AUTOMATED 152 10*3/uL (130-400); RED BLOOD COUNT 4.01 10*6/uL (4.10-5.10); WHITE BLOOD COUNT 4.7 10*3/uL (4.8-10.8)
[2016-11-10 06:31] LABS: CKMB 1.4 ng/ml (0.5-3.6); CPK 80 U/L (26-192)
[2016-11-10 06:36] LABS: TROPONIN I < 0.015 ng/ml (<0.045)
[2016-11-10 06:52] LABS: BUN 12 mg/dl (7-24); CARBON DIOXIDE 30 mmol/L (21-32); CHLORIDE 105 mmol/L (98-107); EST GLOM FILT AFRICAN AMERICAN > 60 ml/min; GLUCOSE 225 mg/dL (65-99); POTASSIUM 3.4 mmol/L (3.5-5.1); SODIUM 141 mmol/L (136-145)
[2016-11-10 08:00] VITALS: BP 160/90
[2016-11-10] MEDS ORDERED: FLUTICASON0.05 MG/AC NAS (15:13)
[2016-11-10] MEDS ORDERED: METFORMIN500 MG PO (15:14)
[2016-11-10] MEDS ORDERED: POTASSIUM CHLO20 ME3 PO (15:16)
[2016-11-10] MEDS ORDERED: BUMETANIDE1 MG PO (15:17)
[2016-11-10] MEDS ORDERED: NEURONTIN300 MG PO (15:18)
[2016-11-10 16:00] VITALS: BP 148/92
[2016-11-10 20:00] VITALS: BP 159/109
[2016-11-11] VITALS: BP 121/66
[2016-11-11 07:17] LABS: BUN 15 mg/dl (7-24); CARBON DIOXIDE 27 mmol/L (21-32); CHLORIDE 106 mmol/L (98-107); EST GLOM FILT AFRICAN AMERICAN > 60 ml/min; GLUCOSE 248 mg/dL (65-99); POTASSIUM 3.5 mmol/L (3.5-5.1); SODIUM 142 mmol/L (136-145)
[2016-11-11 08:00] VITALS: BP 120/72
[2016-11-11 16:03] VITALS: BP 140/77
[2016-11-12] VITALS: BP 117/60
[2016-11-12 08:00] VITALS: BP 151/87
[2016-11-12 16:00] VITALS: BP 156/80
[2016-11-12 20:00] VITALS: BP 114/77
[2016-11-13] VITALS: BP 123/76
[2016-11-13 06:20] LABS: BASO % 0.4 % (0.0-1.0); EOS # 0.1 10*3/uL (0.0-0.4); EOS % 1.8 % (1.0-4.0); HEMATOCRIT 36.9 % (37.0-47.0); HEMOGLOBIN 12.4 g/dl (12.0-16.0); LYMPH % 29.3 % (27.0-41.0); MEAN CELL VOLUME 88.3 fl (81.0-99.0); MEAN CORPUSCULAR HGB 29.7 pg (27.0-31.0); MEAN CORPUSCULAR HGB CONC 33.6 g/dl (33.0-37.0); MONO # 0.6 10*3/uL (0.1-1.0); MONO % 9.2 % (3.0-9.0); PLATELET COUNT AUTOMATED 196 10*3/uL (130-400); RED BLOOD COUNT 4.18 10*6/uL (4.10-5.10); RED CELL DISTRI WIDTH 12.9 % (0-14.5); WHITE BLOOD COUNT 6.8 10*3/uL (4.8-10.8)
[2016-11-13 08:00] VITALS: BP 141/77
[2016-11-13 12:00] VITALS: BP 138/77
[2016-11-13 16:00] VITALS: BP 120/67
[2016-11-14] VITALS: BP 124/70
[2016-11-14 08:00] VITALS: BP 149/82
[2016-11-14 16:00] VITALS: BP 143/88
[2016-11-15] VITALS: BP 142/65
[2016-11-15 07:16] LABS: BASO % 0.5 % (0.0-1.0); EOS # 0.2 10*3/uL (0.0-0.4); EOS % 2.6 % (1.0-4.0); HEMATOCRIT 36.5 % (37.0-47.0); HEMOGLOBIN 12.5 g/dl (12.0-16.0); LYMPH # 2.1 10*3/uL (1.3-4.4); LYMPH % 36.3 % (27.0-41.0); MEAN CELL VOLUME 86.5 fl (81.0-99.0); MEAN CORPUSCULAR HGB 29.6 pg (27.0-31.0); MEAN CORPUSCULAR HGB CONC 34.2 g/dl (33.0-37.0); MEAN PLATELET VOLUME 10.4 fl (9.6-12.3); MONO # 0.4 10*3/uL (0.1-1.0); MONO % 6.4 % (3.0-9.0); NEUT # 3.1 10*3/uL (2.3-7.9); NEUT % 53.5 % (47.0-73.0); PLATELET COUNT AUTOMATED 183 10*3/uL (130-400); RED BLOOD COUNT 4.22 10*6/uL (4.10-5.10); RED CELL DISTRI WIDTH 12.6 % (0-14.5); WHITE BLOOD COUNT 5.8 10*3/uL (4.8-10.8)
[2016-11-15 08:00] VITALS: BP 131/74
== END 2016-11-15 14:30 | disposition other institution (70) | DRG 948 ==
LOC: ED 16:18 → 4E 18:38 → EDHOLD 18:38 → 4E 18:51
PROVIDERS: Emergency Medicine; Internal Medicine; Internal Medicine Hospice and Palliative Medicine
DX: R53.1 Weakness (principal); J96.10 Chronic respiratory failure, unspecified whether with hypoxia or hypercapnia; E11.65 Type 2 diabetes mellitus with hyperglycemia; Z99.81 Dependence on supplemental oxygen; M25.561 Pain in right knee; I10 Essential (primary) hypertension; J44.9 Chronic obstructive pulmonary disease, unspecified; W05.0XXA Fall from non-moving wheelchair, initial encounter; K21.9 Gastro-esophageal reflux disease without esophagitis; M15.9 Polyosteoarthritis, unspecified; E87.6 Hypokalemia; D64.9 Anemia, unspecified; F32.9 Major depressive disorder, single episode, unspecified; E78.5 Hyperlipidemia, unspecified; E83.41 Hypermagnesemia; E66.9 Obesity, unspecified; Z86.73 Personal history of transient ischemic attack (TIA), and cerebral infarction without residual deficits; Y93.89 Activity, other specified; Y92.098 Other place in other non-institutional residence as the place of occurrence of the external cause; Y99.8 Other external cause status; Z68.31 Body mass index [BMI] 31.0-31.9, adult

== ENCOUNTER 2016-12-21 13:50 | Emergency (ER) | payer OTHER ==
[~2016-12-21] VITALS: Ht 160 cm; Wt 77.1 kg
[~2016-12-21 13:50] MED LIST changes: +AUGMENTIN 875-875 MG PO; +BACTRIM DS 8001 TAB PO; +DUONEB 3 MG/3 ML3 M1 INH; +ELIQUIS5 M1 PO; +NEURONTIN300 MG PO; +POTASSIUM CHLO20 ME3 PO
[2016-12-21 14:14] VITALS: BP 134/76
[2016-12-21 16:34] LABS: BASO % 0.2 % (0.0-1.0); EOS # 0.2 10*3/uL (0.0-0.4); EOS % 2.2 % (1.0-4.0); HEMATOCRIT 36.2 % (37.0-47.0); HEMOGLOBIN 12.2 g/dl (12.0-16.0); IG # 0.1 10*3/uL (0.0-0.1); LYMPH # 2.1 10*3/uL (1.3-4.4); LYMPH % 26.5 % (27.0-41.0); MEAN CELL VOLUME 87.7 fl (81.0-99.0); MEAN CORPUSCULAR HGB 29.5 pg (27.0-31.0); MEAN CORPUSCULAR HGB CONC 33.7 g/dl (33.0-37.0); MEAN PLATELET VOLUME 10.8 fl (9.6-12.3); MONO # 0.6 10*3/uL (0.1-1.0); MONO % 6.8 % (3.0-9.0); NEUT # 5.1 10*3/uL (2.3-7.9); NEUT % 63.7 % (47.0-73.0); PLATELET COUNT AUTOMATED 194 10*3/uL (130-400); RED BLOOD COUNT 4.13 10*6/uL (4.10-5.10); RED CELL DISTRI WIDTH 12.5 % (0-14.5); WHITE BLOOD COUNT 8.1 10*3/uL (4.8-10.8)
[2016-12-21 16:46] LABS: POTASSIUM 4.5 mmol/L (3.5-5.1)
[2016-12-21 17:07] LABS: BILIRUBIN NEGATIVE (NEGATIVE); BLOOD NEGATIVE (NEGATIVE); CLARITY CLEAR (CLEAR); COLOR YELLOW (YELLOW); GLUCOSE 3+ (NEGATIVE); KETONE NEGATIVE (NEGATIVE); LEUKO ESTERASE NEGATIVE (NEGATIVE); NITRITE NEGATIVE (NEGATIVE); PH 6.5 (5.0-9.0); PROTEIN NEGATIVE (NEGATIVE); SPECIFIC GRAVITY <= 1.005 (1.005-1.030); UROBILINOGEN 0.2 E.U./dl (0.2-1.0)
[2016-12-21 17:15] LABS: HYALINE CAST 0-2
[2016-12-21 17:16] LABS: BACTERIA TRACE; EPITHELIAL CELLS 0-2; RBC 0-2 rbc/hpf (0-2); URINE REFLEX COMMENT NO (NO); WBC 0-2 wbc/hpf (0-5)
== END 2016-12-21 17:33 | disposition home or self-care (01) ==
LOC: ED 13:50
PROVIDERS: Emergency Medicine
DX: E11.65 Type 2 diabetes mellitus with hyperglycemia (principal); M19.90 Unspecified osteoarthritis, unspecified site; K21.9 Gastro-esophageal reflux disease without esophagitis; E78.5 Hyperlipidemia, unspecified; I11.0 Hypertensive heart disease with heart failure; I50.9 Heart failure, unspecified; Z95.0 Presence of cardiac pacemaker; Z90.49 Acquired absence of other specified parts of digestive tract; Z79.82 Long term (current) use of aspirin; Z79.4 Long term (current) use of insulin; Z79.899 Other long term (current) drug therapy

== ENCOUNTER 2016-12-22 19:31 | Inpatient (IN) | payer OTHER ==
[~2016-12-22] VITALS: Ht 160 cm; Wt 78.6 kg
[2016-12-22 19:35] VITALS: BP 175/94
[2016-12-22 20:53] LABS: BASO % 0.4 % (0.0-1.0); EOS # 0.1 10*3/uL (0.0-0.4); EOS % 1.2 % (1.0-4.0); HEMATOCRIT 35.1 % (37.0-47.0); HEMOGLOBIN 11.8 g/dl (12.0-16.0); IG # 0.1 10*3/uL (0.0-0.1); LYMPH # 2.3 10*3/uL (1.3-4.4); LYMPH % 21.9 % (27.0-41.0); MEAN CELL VOLUME 87.5 fl (81.0-99.0); MEAN CORPUSCULAR HGB 29.4 pg (27.0-31.0); MEAN CORPUSCULAR HGB CONC 33.6 g/dl (33.0-37.0); MEAN PLATELET VOLUME 10.9 fl (9.6-12.3); MONO # 0.6 10*3/uL (0.1-1.0); MONO % 5.9 % (3.0-9.0); NEUT # 7.4 10*3/uL (2.3-7.9); NEUT % 70.1 % (47.0-73.0); PLATELET COUNT AUTOMATED 188 10*3/uL (130-400); RED BLOOD COUNT 4.01 10*6/uL (4.10-5.10); RED CELL DISTRI WIDTH 12.3 % (0-14.5); WHITE BLOOD COUNT 10.6 10*3/uL (4.8-10.8)
[2016-12-22 21:10] LABS: ALBUMIN 3.5 gm/dl (3.1-4.5); ALKALINE PHOSPHATASE 108 U/L (45-117); BILIRUBIN, TOTAL 0.4 mg/dl (0.2-1.0); BUN 32 mg/dl (7-24); CARBON DIOXIDE 21 mmol/L (21-32); CHLORIDE 97 mmol/L (98-107); EST GLOM FILT AFRICAN AMERICAN 42 ml/min; GLUCOSE 456 mg/dL (65-99); MAGNESIUM 2.4 mg/dL (1.5-2.1); SGOT/AST 27 IU/L (3-35); SGPT/ALT 32 U/L (12-78); SODIUM 132 mmol/L (136-145); TOTAL PROTEIN 7.5 gm/dL (6.4-8.2)
[2016-12-22 21:13] LABS: TROPONIN I < 0.015 ng/ml (<0.045)
[2016-12-22 21:18] LABS: PROTHROMBIN TIME 10.1 SECONDS (9.0-12.4)
[2016-12-22 22:24] LABS: BILIRUBIN NEGATIVE (NEGATIVE); BLOOD NEGATIVE (NEGATIVE); CLARITY CLEAR (CLEAR); COLOR YELLOW (YELLOW); GLUCOSE 3+ (NEGATIVE); KETONE NEGATIVE (NEGATIVE); LEUKO ESTERASE NEGATIVE (NEGATIVE); NITRITE NEGATIVE (NEGATIVE); PROTEIN NEGATIVE (NEGATIVE); SPECIFIC GRAVITY <= 1.005 (1.005-1.030); UROBILINOGEN 0.2 E.U./dl (0.2-1.0)
[2016-12-22 22:31] LABS: BACTERIA TRACE; EPITHELIAL CELLS 0-2; RBC 0-2 rbc/hpf (0-2)
[2016-12-22 22:50] LABS: LA>2 REFLEX 2 HR DRAW NOW
[2016-12-23 02:20] VITALS: BP 149/84
[2016-12-23 02:47] LABS: BASO % 0.5 % (0.0-1.0); EOS # 0.2 10*3/uL (0.0-0.4); EOS % 2.2 % (1.0-4.0); HEMATOCRIT 36.6 % (37.0-47.0); HEMOGLOBIN 12.3 g/dl (12.0-16.0); LYMPH # 2.2 10*3/uL (1.3-4.4); LYMPH % 29.8 % (27.0-41.0); MEAN CELL VOLUME 87.1 fl (81.0-99.0); MEAN CORPUSCULAR HGB 29.3 pg (27.0-31.0); MEAN CORPUSCULAR HGB CONC 33.6 g/dl (33.0-37.0); MEAN PLATELET VOLUME 10.3 fl (9.6-12.3); MONO # 0.5 10*3/uL (0.1-1.0); MONO % 6.5 % (3.0-9.0); NEUT # 4.5 10*3/uL (2.3-7.9); NEUT % 60.6 % (47.0-73.0); PLATELET COUNT AUTOMATED 191 10*3/uL (130-400); RED CELL DISTRI WIDTH 12.5 % (0-14.5); WHITE BLOOD COUNT 7.4 10*3/uL (4.8-10.8)
[2016-12-23 03:02] LABS: MAGNESIUM 2.3 mg/dL (1.5-2.1); PHOSPHOROUS 2.8 mg/dL (2.5-4.9)
[2016-12-23 03:05] LABS: POTASSIUM 3.9 mmol/L (3.5-5.1)
[2016-12-23 08:00] VITALS: BP 140/88
[2016-12-23] MEDS ORDERED: ELIQUIS5 M1 PO (09:37)
[2016-12-23 12:00] VITALS: BP 132/78
[2016-12-23 16:00] VITALS: BP 125/54
== END 2016-12-23 16:15 | disposition home or self-care (01) | DRG 637 ==
LOC: ED 19:31 → EDHOLD 12-23 00:59 → 5E 12-23 00:59
PROVIDERS: Emergency Medicine Emergency Medical Services; Internal Medicine
DX: E11.65 Type 2 diabetes mellitus with hyperglycemia (principal); N17.0 Acute kidney failure with tubular necrosis; E87.2 Acidosis; I50.32 Chronic diastolic (congestive) heart failure; I13.0 Hypertensive heart and chronic kidney disease with heart failure and stage 1 through stage 4 chronic kidney disease, or unspecified chronic kidney disease; E87.1 Hypo-osmolality and hyponatremia; J96.11 Chronic respiratory failure with hypoxia; M15.9 Polyosteoarthritis, unspecified; I48.0 Paroxysmal atrial fibrillation; R62.7 Adult failure to thrive; E78.5 Hyperlipidemia, unspecified; K21.9 Gastro-esophageal reflux disease without esophagitis; F32.9 Major depressive disorder, single episode, unspecified; E11.22 Type 2 diabetes mellitus with diabetic chronic kidney disease; N18.2 Chronic kidney disease, stage 2 (mild); D64.9 Anemia, unspecified; J44.9 Chronic obstructive pulmonary disease, unspecified; E66.09 Other obesity due to excess calories; E55.9 Vitamin D deficiency, unspecified; J30.2 Other seasonal allergic rhinitis; Z79.82 Long term (current) use of aspirin; Z68.27 Body mass index [BMI] 27.0-27.9, adult; Z79.01 Long term (current) use of anticoagulants; Z99.81 Dependence on supplemental oxygen; Z91.14 Patient's other noncompliance with medication regimen; Z86.73 Personal history of transient ischemic attack (TIA), and cerebral infarction without residual deficits; Z79.4 Long term (current) use of insulin; Z79.899 Other long term (current) drug therapy; Z90.49 Acquired absence of other specified parts of digestive tract; Z90.710 Acquired absence of both cervix and uterus; Z98.42 Cataract extraction status, left eye; Z98.41 Cataract extraction status, right eye; Z82.49 Family history of ischemic heart disease and other diseases of the circulatory system; Z83.3 Family history of diabetes mellitus; Z82.3 Family history of stroke; Z82.0 Family history of epilepsy and other diseases of the nervous system; Z96.651 Presence of right artificial knee joint; Z95.0 Presence of cardiac pacemaker

== ENCOUNTER 2016-12-24 14:11 | Inpatient (IN) | payer OTHER ==
[~2016-12-24] VITALS: Ht 160 cm; Wt 70.5 kg
[2016-12-24 14:19] VITALS: BP 131/62
[2016-12-24 15:10] LABS: BASO % 0.3 % (0.0-1.0); EOS # 0.1 10*3/uL (0.0-0.4); EOS % 1.3 % (1.0-4.0); HEMATOCRIT 36.9 % (37.0-47.0); HEMOGLOBIN 12.5 g/dl (12.0-16.0); LYMPH # 2.3 10*3/uL (1.3-4.4); LYMPH % 29.7 % (27.0-41.0); MEAN CELL VOLUME 85.8 fl (81.0-99.0); MEAN CORPUSCULAR HGB 29.1 pg (27.0-31.0); MEAN CORPUSCULAR HGB CONC 33.9 g/dl (33.0-37.0); MEAN PLATELET VOLUME 10.7 fl (9.6-12.3); MONO # 0.4 10*3/uL (0.1-1.0); MONO % 5.1 % (3.0-9.0); NEUT % 63.1 % (47.0-73.0); PLATELET COUNT AUTOMATED 198 10*3/uL (130-400); RED CELL DISTRI WIDTH 12.5 % (0-14.5); WHITE BLOOD COUNT 7.9 10*3/uL (4.8-10.8)
[2016-12-24 15:17] LABS: PROTHROMBIN TIME 10.7 SECONDS (9.0-12.4)
[2016-12-24 15:25] LABS: BILIRUBIN, TOTAL 0.5 mg/dl (0.2-1.0); POTASSIUM 3.6 mmol/L (3.5-5.1); TOTAL PROTEIN 8.1 gm/dL (6.4-8.2)
[2016-12-24 15:57] LABS: BILIRUBIN NEGATIVE (NEGATIVE); BLOOD NEGATIVE (NEGATIVE); CLARITY CLEAR (CLEAR); COLOR YELLOW (YELLOW); GLUCOSE 2+ (NEGATIVE); KETONE NEGATIVE (NEGATIVE); LEUKO ESTERASE NEGATIVE (NEGATIVE); NITRITE NEGATIVE (NEGATIVE); PH 5.5 (5.0-9.0); PROTEIN NEGATIVE (NEGATIVE); SPECIFIC GRAVITY <= 1.005 (1.005-1.030); UROBILINOGEN 0.2 E.U./dl (0.2-1.0)
[2016-12-24 16:06] LABS: RBC 0-2 rbc/hpf (0-2); URINE REFLEX COMMENT NO (NO); WBC 0-2 wbc/hpf (0-5)
[2016-12-24 17:20] VITALS: BP 133/79
[2016-12-24 20:00] VITALS: BP 133/85
[2016-12-25] VITALS: BP 122/85
[2016-12-25 06:52] LABS: BASO % 0.4 % (0.0-1.0); EOS # 0.1 10*3/uL (0.0-0.4); EOS % 2.2 % (1.0-4.0); HEMATOCRIT 34.7 % (37.0-47.0); HEMOGLOBIN 11.7 g/dl (12.0-16.0); LYMPH # 1.8 10*3/uL (1.3-4.4); LYMPH % 32.9 % (27.0-41.0); MEAN CELL VOLUME 86.8 fl (81.0-99.0); MEAN CORPUSCULAR HGB 29.3 pg (27.0-31.0); MEAN CORPUSCULAR HGB CONC 33.7 g/dl (33.0-37.0); MEAN PLATELET VOLUME 10.2 fl (9.6-12.3); MONO # 0.3 10*3/uL (0.1-1.0); NEUT # 3.2 10*3/uL (2.3-7.9); NEUT % 58.8 % (47.0-73.0); PLATELET COUNT AUTOMATED 176 10*3/uL (130-400); RED CELL DISTRI WIDTH 12.6 % (0-14.5); WHITE BLOOD COUNT 5.4 10*3/uL (4.8-10.8)
[2016-12-25 07:18] LABS: ALBUMIN 3.5 gm/dl (3.1-4.5); ALKALINE PHOSPHATASE 100 U/L (45-117); BILIRUBIN, TOTAL 0.4 mg/dl (0.2-1.0); BUN 21 mg/dl (7-24); CARBON DIOXIDE 27 mmol/L (21-32); CHLORIDE 101 mmol/L (98-107); EST GLOM FILT AFRICAN AMERICAN > 60 ml/min; FREE T4 0.94 ng/dl (0.76-1.46); GLUCOSE 257 mg/dL (65-99); MAGNESIUM 2.2 mg/dL (1.5-2.1); PHOSPHOROUS 3.2 mg/dL (2.5-4.9); POTASSIUM 3.7 mmol/L (3.5-5.1); SGOT/AST 24 IU/L (3-35); SGPT/ALT 34 U/L (12-78); SODIUM 140 mmol/L (136-145); TOTAL PROTEIN 7.1 gm/dL (6.4-8.2)
[2016-12-25 07:22] LABS: PROTHROMBIN TIME 10.6 SECONDS (9.0-12.4)
[2016-12-25 08:00] VITALS: BP 97/62
[2016-12-25 08:44] LABS: FOLIC ACID 12.2 ng/mL (>5.38); VITAMIN D, 25-HYDROXY 43.3 ng/mL (30-100)
[2016-12-25 09:34] VITALS: BP 128/62
[2016-12-25 12:00] VITALS: BP 127/64
[2016-12-25 16:00] VITALS: BP 150/80
[2016-12-25 20:00] VITALS: BP 153/81
[2016-12-26] VITALS: BP 124/63
[2016-12-26 08:00] VITALS: BP 136/82
[2016-12-26 12:00] VITALS: BP 148/67
[2016-12-26 16:00] VITALS: BP 153/74
[2016-12-26 20:00] VITALS: BP 156/85
[2016-12-27] VITALS: BP 121/64
[2016-12-27 08:00] VITALS: BP 158/82
[2016-12-27 12:00] VITALS: BP 151/74
[2016-12-27 16:00] VITALS: BP 143/78
[2016-12-27 20:00] VITALS: BP 132/87
[2016-12-28] VITALS: BP 143/72
[2016-12-28 08:00] VITALS: BP 146/76
[2016-12-28 12:00] VITALS: BP 165/63
[2016-12-28 16:00] VITALS: BP 146/87
== END 2016-12-28 18:35 | disposition other institution (70) | DRG 683 ==
LOC: ED 14:11 → EDHOLD 16:18 → 5E 16:18
PROVIDERS: Internal Medicine; Registered Nurse
DX: N17.0 Acute kidney failure with tubular necrosis (principal); J96.10 Chronic respiratory failure, unspecified whether with hypoxia or hypercapnia; E11.65 Type 2 diabetes mellitus with hyperglycemia; I50.9 Heart failure, unspecified; I11.0 Hypertensive heart disease with heart failure; Z91.81 History of falling; Z90.49 Acquired absence of other specified parts of digestive tract; Z96.651 Presence of right artificial knee joint; Z95.0 Presence of cardiac pacemaker; J44.9 Chronic obstructive pulmonary disease, unspecified; Z86.73 Personal history of transient ischemic attack (TIA), and cerebral infarction without residual deficits; F32.9 Major depressive disorder, single episode, unspecified; K21.9 Gastro-esophageal reflux disease without esophagitis; E78.5 Hyperlipidemia, unspecified; Z91.14 Patient's other noncompliance with medication regimen; M19.90 Unspecified osteoarthritis, unspecified site; I48.0 Paroxysmal atrial fibrillation; Z80.3 Family history of malignant neoplasm of breast; Z83.3 Family history of diabetes mellitus; Z82.3 Family history of stroke; W18.39XA Other fall on same level, initial encounter; Y93.89 Activity, other specified; Y99.8 Other external cause status; Y92.099 Unspecified place in other non-institutional residence as the place of occurrence of the external cause; Z79.4 Long term (current) use of insulin; H81.10 Benign paroxysmal vertigo, unspecified ear; E55.9 Vitamin D deficiency, unspecified; R27.0 Ataxia, unspecified; D64.9 Anemia, unspecified; Z99.81 Dependence on supplemental oxygen; E66.09 Other obesity due to excess calories; J30.2 Other seasonal allergic rhinitis

== ENCOUNTER → 2017-02-21 | Outpatient (CLI) | payer OTHER | END | disposition home or self-care (01) | LOC: RAD 15:47 | DX: J44.9 Chronic obstructive pulmonary disease, unspecified (principal); J69.0 Pneumonitis due to inhalation of food and vomit; I50.9 Heart failure, unspecified; J02.9 Acute pharyngitis, unspecified; H92.01 Otalgia, right ear; Z87.891 Personal history of nicotine dependence ==

== ENCOUNTER 2017-03-03 13:18 | Inpatient (IN) | payer OTHER ==
[~2017-03-03] VITALS: Ht 160 cm; Wt 81.4 kg
--- NOTE | ~2017-03-03 | PR ---
[place], [place] PROGRESS NOTE NAME: JOHANNE MALDONADO UNIT #: [id number] ROOM: 505 DOCTOR: ANDRESSA MITCHELL MD BIRTHDATE: [birth year] DOS: SUBJECTIVE: The patient is resting comfortably in bed, does not have any complaints. OBJECTIVE: VITAL SIGNS: Blood pressure is 149/73, pulse of 85, respirations 20, temperature 98.4. LUNGS: Clear. HEART: Regular. ABDOMEN: Obese, soft, nontender. EXTREMITIES: Without any edema. ASSESSMENT AND PLAN: 1. Acute kidney injury, possibly from prerenal azotemia, which is resolved. The kidney functions are back to normal. 2. Hypokalemia. Supplementation is ordered. We will discontinue IV fluids. 3. Possible urinary tract infection. Urine culture has so far been negative. Blood cultures, 1 set shows no bacterial growth. This was drawn at 1358 on March 03. The one drawn on at 1409 on March 03 is showing Gram-positive cocci, which most likely is a contaminant. I will repeat the blood cultures again today. 4. Adult failure to thrive. I am waiting for PT to evaluate her and if they feel that the patient needs to go to a rehabilitation, Social Service has already been consulted. ANDRESSA MITCHELL MD CM:PNTRANS 0820 1044 ANDRESSA MITCHELL MD 03/07/17 0457 interface
--- NOTE | ~2017-03-03 | EKG ---
[place], [place] ELECTROCARDIOGRAM REPORT NAME: JOHANNE MALDONADO UNIT #: [id number] ROOM: [facility] DOCTOR: FLOR SIDDIQI MD BIRTHDATE: [birth year] DOS: 03/03/2017 TIME: 1411 hours. Normal sinus rhythm at 84 beats per minute. An intraventricular conduction defect including left anterior hemiblock. An abnormal ECG. No previous tracing is available for comparison. FLOR SIDDIQI MD CM:EKGRPT:ELECTROCARDIOGRAM REPORT 1511 1545 FLOR SIDDIQI MD
--- NOTE | ~2017-03-03 | PR ---
[place], [place] PROGRESS NOTE NAME: JOHANNE MALDONADO UNIT #: [id number] ROOM: 505 DOCTOR: ANDRESSA MITCHELL MD BIRTHDATE: [birth year] DOS: 03/05/2017 SUBJECTIVE: The patient is not having any new complaints, states that she does not want to go to rehab. OBJECTIVE: VITAL SIGNS: Graphic trend shows a blood pressure of 115/55, pulse of 86, respirations 20, temperature 99. LUNGS: Diminished breath sounds, clear. HEART: Regular. ABDOMEN: Obese, soft. EXTREMITIES: Without any edema. ASSESSMENT AND PLAN: 1. Sepsis with positive blood cultures. 2. Urinary tract infection. Urine culture is pending. Blood culture showing Gram-positive cocci, again identification is not completed yet. The patient is on IV antibiotics. 3. Type 2 diabetes mellitus, insulin-dependent. Blood sugars are fairly controlled. She was hypoglycemic at home and so the medicines that she is on will need to be readjusted. 4. Adult failure to thrive. Refuses to go to rehab center even though the physical therapist who did an outpatient evaluation felt that the patient is not a good candidate to go home. We will discuss with case management in the morning. ANDRESSA MITCHELL MD CM:PNTRANS [phone] ANDRESSA MITCHELL MD 03/07/17 0802 interface
--- NOTE | ~2017-03-03 | PR ---
[place], [place] PROGRESS NOTE NAME: JOHANNE MALDONADO UNIT #: [id number] ROOM: 505 DOCTOR: ANDRESSA MITCHELL MD BIRTHDATE: [birth year] DOS: 03/07/2017 SUBJECTIVE: The patient is refusing to go to a skilled. OBJECTIVE: VITAL SIGNS: Graphic trend shows a pressure of 155/74, pulse of 86, respirations 20, temperature 98.0. LUNGS: Diminished breath sounds, clear. HEART: Regular. ABDOMEN: Obese, soft. EXTREMITIES: Without any edema. ASSESSMENT AND PLAN: 1. Adult failure to thrive. The patient needs to be in a skilled but refuses to go. 2. Positive blood cultures with Staph haemolyticus noticed on 1 culture. This could very well be a contaminant, but the patient will be treated with Levaquin. 3. Chronic atrial fibrillation, on Eliquis, which is being continued. 4. Type 2 diabetes mellitus with hypoglycemia. Blood sugars are stable. Insulin dosage has been increased slowly. The plan is to discharge her to home to follow up with her physicians. ANDRESSA MITCHELL MD CM:PNTRANS 0758 1049 ANDRESSA MITCHELL MD 03/07/17 2009 interface
--- NOTE | ~2017-03-03 | WRIGHTHP ---
[place], [place] PATIENT HISTORY AND PHYSICAL EXAM [id number] UNIT #: [id number] ROOM: 505 DOCTOR: ANDRESSA MITCHELL MD BIRTHDATE: [birth year] DOS: 03/03/2017 HISTORY OF PRESENT ILLNESS: This patient is 86 years old. The patient comes in with complaints of feeling tired and weak. She could not get up out of the bathroom, she was sitting on the toilet and the ambulance had to be called. Her blood sugar was pretty low when the ambulance arrived. D50 was given and brought to the Emergency Room. The patient denies having any chest pains or palpitations, does not have any fever or chills this morning. She states that her weakness is a little better. She had an evaluation by physical therapy recently, which showed that this patient requires SNF placement. PAST MEDICAL HISTORY: 1. Last hospitalization 12/24/2016 with acute renal failure, tubular necrosis. 2. Generalized weakness. 3. Diabetes mellitus, uncontrolled. 4. Hyperlipidemia. 5. Benign hypertension. 6. History of congestive heart failure. 7. Chronic obstructive pulmonary disease with chronic respiratory failure, oxygen dependent. 8. History of paroxysmal atrial fibrillation. MEDICATIONS: She is currently on are oxygen 2 liters, Tylenol 500 q. 6, amlodipine 2.5, Eliquis 5 b.i.d., aspirin 325 daily, carvedilol 25 mg twice daily, nortriptyline 10 at bedtime, potassium 20 t.i.d., Pravachol 20 daily, torsemide 20 daily, insulin 70 units subQ daily, Lispro insulin sliding scale, metformin 500 tablets twice a day, loratadine 10 b.i.d., gabapentin 300 q. 8. PHYSICAL EXAMINATION: GENERAL: She is awake, alert and oriented, answers questions appropriately. She is not sure of a lot of things. VITAL SIGNS: Graphic trend shows a pressure 142/70, pulse of 76, respirations 14, afebrile. LUNGS: Diminished breath sounds. No wheezes, rales or rhonchi heard. HEART: Regular. ABDOMEN: Obese, soft, nontender. EXTREMITIES: Without any edema. ASSESSMENT AND PLAN: 1. The patient admitted with adult failure to thrive, recent PT evaluation notes that the patient is not a good candidate to be at home alone. She lives at home and has no help. Person who was taking care of her is also ill and was unable to help her. So, the patient will need to be placed in skilled for rehabilitation purposes. Social Service will be consulted. PT/OT has been consulted. 2. Type 2 diabetes mellitus, with hypoglycemia. The patient's medications will be on hold and then we will start her on a low dose medicine at a later time once the blood sugar normalizes. 3. Benign hypertension, reorder Coreg. [place], [place] PATIENT HISTORY AND PHYSICAL EXAM NAME: JOHANNE MALDONADO UNIT #: [id number] ROOM: [facility] DOCTOR: ANDRESSA MITCHELL MD BIRTHDATE: [birth year] 4. Paroxysmal atrial fibrillation with controlled heart rate, on Eliquis. 5. Chronic respiratory failure. Continue oxygen supplementation. ANDRESSA MITCHELL MD CM:HISPHYS:PATIENT HISTORY AND PHYSICAL EXAMINATION 0721 ANDRESSA MITCHELL MD 03/04/1733 interface
--- NOTE | ~2017-03-03 | DS ---
[place], [place] DISCHARGE SUMMARY NAME: JOHANNE MALDONADO UNIT #: [id number] ROOM: 505 DOCTOR: ANDRESSA MITCHELL MD BIRTHDATE: [birth year] DOS: 03/07/2017 DIAGNOSES: 1. Adult failure to thrive. The patient should be in a skilled but refuses to go. 2. Type 2 diabetes mellitus with hypoglycemia. 3. Staph haemolyticus of the blood, most likely a contaminant, only 1 bottle was positive. 4. Benign hypertension. 5. Chronic atrial fibrillation. 6. Chronic obstructive pulmonary disease with oxygen dependent. 7. Mixed hyperlipidemia. DISCHARGE MEDICATIONS: Levaquin 750 mg daily for 10 days. Repeat blood cultures done, is pending and should be reviewed as an outpatient. Pravachol 20 daily; MiraLax 17 grams daily p.r.n. for constipation; nortriptyline 10 at bedtime; Coreg 25 b.i.d.; amlodipine 2.5 daily; oxygen 2 liters; potassium 20 t.i.d.; gabapentin 300 q. 8; metformin 500 two tablets daily; vitamin D 50,000 units daily; loratadine 10 daily; torsemide 2 mg daily; Eliquis 5 mg b.i.d.; Humalog coverage scale, 40 units subQ daily, the dose has been cut back because of the hypoglycemia; aspirin has been discontinued. HOSPITAL COURSE: The patient is 86 years old, patient of [facility], who was admitted under my services with complaints of hypoglycemia. The patient had hypoglycemic spells at home. The ambulance was called and she was brought to the Emergency Room and D50 was given en route. When she arrived, the blood sugar was 90 in the ER. After evaluation, the patient was admitted. The patient had a PT, OT evaluation. Social Service consult. They felt that the patient needs to go to skilled, but refuses. Apparently, this patient has been admitted multiple times and has been suggested to go to skilled during the previous hospitalizations and has refused. Her blood pressures are controlled. Paroxysmal AFib is being managed with the Coreg and Eliquis. She had blood cultures done in the Emergency Room. Lactic acid was normal. WBC count is 14.0. One of the blood cultures done in the ER has shown positive for Staphylococcus haemolyticus. The patient has been placed on appropriate antibiotics. Repeat blood cultures have been ordered and these are not available yet. The patient is relatively stable. She had acute kidney injury which was treated with IV fluids. Torsemide was discontinued. The BMP shows complete resolution of the kidney injury. The patient's WBC count has normalized. I have encouraged the patient to go to a rehab, but the patient refuses and Social Service consult was obtained and they feel that the patient could have visiting nurses and passport services at home, which should help her. The patient should follow with [facility]. [place], [place] DISCHARGE SUMMARY NAME: JOHANNE MALDONADO UNIT #: [id number] ROOM: 505 DOCTOR: ANDRESSA MITCHELL MD BIRTHDATE: [birth year] ANDRESSA MITCHELL MD CM:DISCHPATEL 9 6 ANDRESSA MITCHELL MD 03/07/17916 interface
[~2017-03-03 13:18] MED LIST changes: +TOUJEO SOL300 UNIT/1 SQ
[2017-03-03 13:35] VITALS: BP 143/62
[2017-03-03 14:16] VITALS: BP 165/85
[2017-03-03 14:16] LABS: BASO % 0.2 % (0.0-1.0); EOS # 0.2 10*3/uL (0.0-0.4); EOS % 1.1 % (1.0-4.0); HEMATOCRIT 38.4 % (37.0-47.0); HEMOGLOBIN 12.7 g/dl (12.0-16.0); LYMPH # 1.2 10*3/uL (1.3-4.4); LYMPH % 8.7 % (27.0-41.0); MEAN CELL VOLUME 87.5 fl (81.0-99.0); MEAN CORPUSCULAR HGB 28.9 pg (27.0-31.0); MEAN CORPUSCULAR HGB CONC 33.1 g/dl (33.0-37.0); MEAN PLATELET VOLUME 10.6 fl (9.6-12.3); MONO # 0.2 10*3/uL (0.1-1.0); MONO % 1.4 % (3.0-9.0); NEUT # 12.3 10*3/uL (2.3-7.9); NEUT % 87.3 % (47.0-73.0); PLATELET COUNT AUTOMATED 177 10*3/uL (130-400); RED BLOOD COUNT 4.39 10*6/uL (4.10-5.10); RED CELL DISTRI WIDTH 12.6 % (0-14.5)
[2017-03-03 14:35] LABS: ALKALINE PHOSPHATASE 118 U/L (45-117); BUN 41 mg/dl (7-24); CHLORIDE 95 mmol/L (98-107); CPK 71 U/L (26-192); CREATININE 1.56 mg/dL (0.55-1.02); LIPASE 113 U/L (73-393); MAGNESIUM 2.5 mg/dL (1.5-2.1); SGOT/AST 31 IU/L (3-35); SGPT/ALT 33 U/L (12-78); SODIUM 135 mmol/L (136-145); TOTAL PROTEIN 8.1 gm/dL (6.4-8.2); TROPONIN I < 0.015 ng/ml (<0.045)
[2017-03-03 14:52] LABS: ACT PARTIAL THROMBO TIME 23.4 SECONDS (20.8-31.5)
[2017-03-03] MEDS ORDERED: METFORMIN500 MG PO (16:46)
[2017-03-03] MEDS ORDERED: VITAMIN D50000 UNIT PO (16:59)
[2017-03-03] MEDS ORDERED: CLARITIN10 MG PO (17:00)
[2017-03-03] MEDS ORDERED: TORSEMIDE20 MG PO (17:01)
[2017-03-03] MEDS ORDERED: ELIQUIS5 M1 PO (17:13)
--- NOTE | 2017-03-03 17:15 | NUR ---
PT. BROUGHT TO FLOOR FROM ER AT THIS TIME. PT. A&OX3. CALL LIGHT WITHIN REACH, BED IN LOWEST POSITION. SEE CHART FOR ASSESSMENT.
[2017-03-03] MEDS ORDERED: HUMALOG100 UNIT/2 SQ (17:20)
--- NOTE | 2017-03-03 17:21 | NUR ---
[facility] CALL[facility] AND MED LIST FAXED BUT PER THE PATIENT HAS YHAD MEDS CHANGED SINCE SOME OF THESE WERE FILLED D/T BEING IN THE HOSPITAL THEN GOING TO THE JAIL. SHE ALSO HAS MORE THAT SHE WOULD NORMALLY HAVE RUN OUT OF. BUT TALKING TO THE PATIENT SHE WASN'T TAKING SOME BECAUSE SHE RAN OUT SO SHE TOOM OTHER THINGS SHE HAD.
--- NOTE | 2017-03-03 17:46 | NUR ---
PER THE RETIREMENT SOME MEDS WERE VERIFIED BEING THE SAME DOSE BUT THERE ARE SOME DESCREPENCIES. THE PATIENT SAYS SHE IS NO LONGER TAKING THE TRAJENTA TABLET (LAST FILLED 02/01/17) BUT IS TAKING THE METFORMIN LAST FILLED 02/17/17. PER THE RETIREMENT SHE WAS DISCHARGED ON LISINOPRIL & ALSO THE TRIAMTERENE/HCTZ HOWEVER NEITHER OF THESE HAVE BEEN FILLED RECENTLY
--- NOTE | 2017-03-03 17:50 | NUR ---
DR SIDDIQI IS HERE ELECTRIC ORGAN CHECKER
[2017-03-03 20:00] VITALS: BP 141/78
--- NOTE | 2017-03-03 20:00 | NUR ---
PATIENT IS AWAKE , ALERT AND ORIENTED X3. PLEASANT AND COOPERATIVE WITH ASSESSMENT. SLIGHT RIGHT SIDED FACIAL DROOP NOTED FROM PREVIOUS CVA. SPEECH IS UNDERSTANDABLE BUT SLIGHTLY GARBLED PER BASELINE. LUNGS ARE DIMINISHED WITH EXPIRATORY WHEEZES TO UPPER POSTERIOR LUNGFIELDS BILATERALLY. O2 VIA NASAL CANNULA INTACT AT 4LPM. ABDOMEN IS SOFT AND NON-TENDER UPON PALPATION, BOWEL SOUNDS ARE NORMOACTIVE X 4 QUADS. BILATERAL LOWER EXTREMITIES ARE BOTH BRIGHT PINK/RED, TRACE EDEMA , LEFT GREATER THAN THE RIGHT, PPP. PATIENT DENIES ANY PAIN OR DISCOMFORT. CALL LIGHT IS IN REACH.
[2017-03-04] VITALS: BP 94/55
--- NOTE | 2017-03-04 05:41 | NUR ---
PATIENT IS AWAKE, ALERT AND ORIENTED. AROUSES EASILY FOR MORNING MEDICATIONS. DENIES ANY NEEDS AT THE PRESENT TIME. CALL LIGHT IS IN REACH.
[2017-03-04 06:41] LABS: BASO % 0.1 % (0.0-1.0); EOS # 0.1 10*3/uL (0.0-0.4); EOS % 1.4 % (1.0-4.0); LYMPH # 2.3 10*3/uL (1.3-4.4); MEAN CELL VOLUME 87.7 fl (81.0-99.0); MEAN CORPUSCULAR HGB 28.6 pg (27.0-31.0); MEAN CORPUSCULAR HGB CONC 32.6 g/dl (33.0-37.0); MEAN PLATELET VOLUME 11.3 fl (9.6-12.3); MONO # 0.5 10*3/uL (0.1-1.0); MONO % 6.7 % (3.0-9.0); NEUT # 5.1 10*3/uL (2.3-7.9); NEUT % 63.1 % (47.0-73.0); NUCLEATED RED BLOOD CELL 0.2 % (0.0-0.0); PLATELET COUNT AUTOMATED 166 10*3/uL (130-400); RED BLOOD COUNT 3.67 10*6/uL (4.10-5.10); RED CELL DISTRI WIDTH 12.7 % (0-14.5); WHITE BLOOD COUNT 8.1 10*3/uL (4.8-10.8)
[2017-03-04 06:53] LABS: HEMATOCRIT 32.2 % (37.0-47.0); HEMOGLOBIN 10.5 g/dl (12.0-16.0)
[2017-03-04 07:06] LABS: CREATININE 1.3 mg/dL (0.55-1.02); POTASSIUM 3.9 mmol/L (3.5-5.1)
[2017-03-04 08:00] VITALS: BP 117/91
[2017-03-04 11:09] LABS: BILIRUBIN NEGATIVE (NEGATIVE); BLOOD TRACE-LYSED (NEGATIVE); CLARITY CLEAR (CLEAR); COLOR YELLOW (YELLOW); GLUCOSE 3+ (NEGATIVE); KETONE NEGATIVE (NEGATIVE); LEUKO ESTERASE NEGATIVE (NEGATIVE); NITRITE NEGATIVE (NEGATIVE); PH 5.5 (5.0-9.0); SPECIFIC GRAVITY <= 1.005 (1.005-1.030); UROBILINOGEN 0.2 E.U./dl (0.2-1.0)
[2017-03-04 12:00] VITALS: BP 141/83
[2017-03-04 16:00] VITALS: BP 111/92
--- NOTE | 2017-03-04 17:41 | NUR ---
NOTIFIED OF BLOOD CULTURES, NNO
[2017-03-04 20:00] VITALS: BP 139/80
[2017-03-05] VITALS: BP 115/55
--- NOTE | 2017-03-05 | NUR ---
PT C/O STUFFY NOSE. WARM WASH CLOTH GIVEN PER PT REQUEST. NO PRN'S AVAILABLE AT THIS TIME. O2 HUMIDIFIED AT THIS TIME.
--- NOTE | 2017-03-05 02:33 | NUR ---
PT C/O DRY EYES. PT GIVEN WARM WASHCLOTH AND SALINE BULLET. PT HAD A 1 MINUTE RUN OF PACED. PT DENIES ANY C/O PAIN AT THIS TIME. ENCOURAGED TO REST. LIGHTS TURNED OFF. CALL LIGHT IN REACH.
[2017-03-05 04:00] VITALS: BP 154/90
[2017-03-05 08:00] VITALS: BP 147/63
--- NOTE | 2017-03-05 09:07 | NUR ---
MEDICATED WITH PRN PO TUMS FOR INDIGESTION, MILK OF MAGNESIA FOR CONSTIPATION, AND NATURAL TEARS EYE DROPS FOR DRY EYES.
[2017-03-05 12:00] VITALS: BP 142/58
[2017-03-05 16:00] VITALS: BP 157/71
[2017-03-05 20:00] VITALS: BP 140/62
--- NOTE | 2017-03-05 23:00 | NUR ---
ASSUMED CARE OF PT AT THIS TIME, RESPS EASY AND NONLABORED, CALL LIGHT WITH IN REACH
[2017-03-06] VITALS: BP 149/73
--- NOTE | 2017-03-06 00:30 | NUR ---
PT C/O INDIGESTION REQUESTED AND ADMINISTERED TUMS PO PRN PER ORDER WILL MONITOR EFFECTS
--- NOTE | 2017-03-06 03:59 | NUR ---
PT RESTING IN BED WITH EYES CLOSED RESPS EASY AND NONLABORED WITH NO S/S OF DISTRESS CALL LIGHT WITH IN REACH
[2017-03-06 06:33] LABS: BASO % 0.1 % (0.0-1.0); EOS # 0.1 10*3/uL (0.0-0.4); EOS % 1.9 % (1.0-4.0); HEMATOCRIT 33.9 % (37.0-47.0); HEMOGLOBIN 11.1 g/dl (12.0-16.0); LYMPH % 29.1 % (27.0-41.0); MEAN CELL VOLUME 86.7 fl (81.0-99.0); MEAN CORPUSCULAR HGB 28.4 pg (27.0-31.0); MEAN CORPUSCULAR HGB CONC 32.7 g/dl (33.0-37.0); MEAN PLATELET VOLUME 10.8 fl (9.6-12.3); MONO # 0.4 10*3/uL (0.1-1.0); MONO % 6.2 % (3.0-9.0); NEUT # 4.1 10*3/uL (2.3-7.9); NEUT % 61.4 % (47.0-73.0); PLATELET COUNT AUTOMATED 152 10*3/uL (130-400); RED BLOOD COUNT 3.91 10*6/uL (4.10-5.10); RED CELL DISTRI WIDTH 12.6 % (0-14.5); WHITE BLOOD COUNT 6.7 10*3/uL (4.8-10.8)
[2017-03-06 06:42] LABS: CHLORIDE 104 mmol/L (98-107); CREATININE 0.78 mg/dL (0.55-1.02); POTASSIUM 3.1 mmol/L (3.5-5.1); SODIUM 140 mmol/L (136-145)
[2017-03-06 06:43] LABS: BUN 13 mg/dl (7-24)
[2017-03-06 08:00] VITALS: BP 139/73
--- NOTE | 2017-03-06 08:30 | NUR ---
Hvac Design Mechanical Engineer in to talk to patient. Patient states lives at HOME ALONE with . There are 0 steps in the home. Physician: DR PADRON [facility]acy: [facility] Home health services: [facility] 7 DAYS A WEEK/8 HOURS A DAY SPLIT Patient's level of ADLs: MODERATE ASSIST Patient has working utilities: YES DME: [facility], [facility]. BSC, O2 FROM [facility], [place] Follow-up physician's appointment after d/c: PREFERS TO MAKE HER OWN Does patient want to access PORTAL?: Discharge plan ADAMANTLY REFUSES SNF. SHOUTING AT [employer]. STATES SHE HAS PLENTY OF HELP AT HOME AND THAT IS WHERE SHE IS GOING!. DEBRA BACON
[2017-03-06 12:00] VITALS: BP 154/76
--- NOTE | 2017-03-06 12:02 | NUR ---
PHYSICAL THERAPY PAtient evaluated on 5, full evaluation to follow. Continue with PT as per plan of care with fall and acute debility precautions. Qualifies for SNF but refuses. Recommend home with / family assist and complete home health services. Thank you for this referral. Alona Bradford,PT
--- NOTE | 2017-03-06 13:06 | NUR ---
Occupational Therapy evaluation completed this date on 5 with full eval to follow. PRecautions include fall risk and moderate complexity level 56577. Recommend SNF, however patient prefers to return home with home health OT/PT. Recommend OT per POC. Thank you for this referral. Pearl Paredes OTR/l
[2017-03-06 16:00] VITALS: BP 154/90
--- NOTE | 2017-03-06 19:30 | NUR ---
ASSUMED CARE OF PT AT THIS TIME, PT RESTING IN BED, CALL LIGHT WITH IN REACH
[2017-03-06 20:00] VITALS: BP 155/91
[2017-03-07] VITALS: BP 155/74
[2017-03-07 07:24] LABS: BUN 15 mg/dl (7-24); CHLORIDE 107 mmol/L (98-107); CREATININE 0.88 mg/dL (0.55-1.02); SODIUM 141 mmol/L (136-145)
[2017-03-07 07:26] LABS: POTASSIUM 4.1 mmol/L (3.5-5.1)
[2017-03-07] MEDS ORDERED: LEVAQUIN750 M1 PO (08:00)
[2017-03-07] MEDS ORDERED: TOUJEO SOL300 UNIT/1 SQ (08:00)
--- NOTE | 2017-03-07 08:00 | NUR ---
PATIENT RESTING WITH NO DISTRESS.
--- NOTE | 2017-03-07 08:41 | NUR ---
PHYSICAL THERAPY Bailey seen this AM 1:1 for her therapy treatment. All transfers were CG X 1, no LOB. Standing balance with wheeled walker CG. Gait total 140' X 1, W/W and CG X 1 no LOB, Pt has IV Pole with this gait. Pt back sitting independent on the side of her bed. Then act Ex to bilateral LE of marching, LAQ's, ankle pumps working in 20 reps each with cueing as needed, treatment time 25 min. THALIA YIP FORESTRY CONSERVATION WORKER.
[2017-03-07 09:28] VITALS: BP 142/86
--- NOTE | 2017-03-07 10:00 | NUR ---
AM MEDS TAKEN.
[2017-03-07 12:00] VITALS: BP 165/87
--- NOTE | 2017-03-07 13:37 | NUR ---
HEP LOCK REMOVED FOR DISCHARGE. Discharge instructions reviewed with patient/family. Patient receptive and verbalizes understanding. Follow-up care arranged. Written instructions given to patient/family. GINO BRAR
--- NOTE | 2017-03-08 16:14 | NUR ---
PHYSICAL THERAPY CO-SIGN I approve of the Phyical Therapy notes written above. GEENA KHAN PT
== END 2017-03-07 13:37 | disposition home or self-care (01) | DRG 871 ==
LOC: ED 13:18 → EDHOLD 15:16 → 5E 15:16
PROVIDERS: Emergency Medicine; ADMIT Internal Medicine
DX: A41.9 Sepsis, unspecified organism (principal); N17.0 Acute kidney failure with tubular necrosis; I48.0 Paroxysmal atrial fibrillation; J96.10 Chronic respiratory failure, unspecified whether with hypoxia or hypercapnia; E11.649 Type 2 diabetes mellitus with hypoglycemia without coma; N39.0 Urinary tract infection, site not specified; I50.9 Heart failure, unspecified; I11.0 Hypertensive heart disease with heart failure; E86.0 Dehydration; I48.2 Chronic atrial fibrillation; Z99.81 Dependence on supplemental oxygen; J44.9 Chronic obstructive pulmonary disease, unspecified; R62.7 Adult failure to thrive; K21.9 Gastro-esophageal reflux disease without esophagitis; E78.2 Mixed hyperlipidemia; M19.90 Unspecified osteoarthritis, unspecified site; E66.9 Obesity, unspecified; E87.6 Hypokalemia; Z53.29 Procedure and treatment not carried out because of patient's decision for other reasons; Z96.651 Presence of right artificial knee joint; Z60.2 Problems related to living alone; Z68.31 Body mass index [BMI] 31.0-31.9, adult; Z79.4 Long term (current) use of insulin; Z86.73 Personal history of transient ischemic attack (TIA), and cerebral infarction without residual deficits; Z91.81 History of falling; Z98.42 Cataract extraction status, left eye; Z90.49 Acquired absence of other specified parts of digestive tract; Z90.710 Acquired absence of both cervix and uterus; Z82.3 Family history of stroke; Z82.49 Family history of ischemic heart disease and other diseases of the circulatory system; Z83.3 Family history of diabetes mellitus; Z80.3 Family history of malignant neoplasm of breast; Z81.8 Family history of other mental and behavioral disorders

== ENCOUNTER → 2017-03-22 | Outpatient (CLI) | payer OTHER ==
[~2017-03-22] MED LIST changes: +DYAZIDE 37.5-21 EACH PO; +FLORASTOR250 MG PO; +FLUCONAZOLE100 MG PO; +GOOD NEIGHBOR M25 M1 PO; +LANTUS SOL100 UNIT/1 SQ; +LEVAQUIN750 M1 PO; +OMEPRAZOLE D/R20 MG PO; +TORSEMIDE20 MG PO; +VITAMIN D50000 UNIT PO
[2017-03-23 15:09] LABS: ENDOMYSIAL ANTIBODY IgA Negative (Negative); t-TRANSGLUTAMINASE (tTG) IGA <2 U/mL (0-3); t-TRANSGLUTAMINASE (tTG) IgG 3 U/mL (0-5)
== END | disposition home or self-care (01) ==
LOC: LAB 09:47
PROVIDERS: Family Medicine
DX: R14.0 Abdominal distension (gaseous) (principal)

== ENCOUNTER 2017-03-29 01:25 | Inpatient (IN) | payer OTHER ==
[~2017-03-29] VITALS: Ht 162.5 cm; Wt 79.4 kg
[2017-03-29 01:27] VITALS: BP 138/80
[2017-03-29 01:43] LABS: BASO % 0.3 % (0.0-1.0); EOS # 0.2 10*3/uL (0.0-0.4); EOS % 2.6 % (1.0-4.0); HEMATOCRIT 34.5 % (37.0-47.0); HEMOGLOBIN 11.2 g/dl (12.0-16.0); LYMPH # 2.3 10*3/uL (1.3-4.4); LYMPH % 34.1 % (27.0-41.0); MEAN CELL VOLUME 87.1 fl (81.0-99.0); MEAN CORPUSCULAR HGB 28.3 pg (27.0-31.0); MEAN CORPUSCULAR HGB CONC 32.5 g/dl (33.0-37.0); MEAN PLATELET VOLUME 10.2 fl (9.6-12.3); MONO # 0.4 10*3/uL (0.1-1.0); MONO % 5.6 % (3.0-9.0); NEUT # 3.9 10*3/uL (2.3-7.9); NEUT % 56.4 % (47.0-73.0); PLATELET COUNT AUTOMATED 199 10*3/uL (130-400); RED BLOOD COUNT 3.96 10*6/uL (4.10-5.10); RED CELL DISTRI WIDTH 13.2 % (0-14.5); WHITE BLOOD COUNT 6.8 10*3/uL (4.8-10.8)
[2017-03-29 01:59] LABS: ALBUMIN 3.6 gm/dl (3.1-4.5); CREATININE 1.09 mg/dL (0.55-1.02); TOTAL PROTEIN 7.2 gm/dL (6.4-8.2)
[2017-03-29 02:13] LABS: BILIRUBIN NEGATIVE (NEGATIVE); BLOOD NEGATIVE (NEGATIVE); CLARITY CLEAR (CLEAR); COLOR YELLOW (YELLOW); GLUCOSE 3+ (NEGATIVE); KETONE NEGATIVE (NEGATIVE); LEUKO ESTERASE NEGATIVE (NEGATIVE); NITRITE NEGATIVE (NEGATIVE); PH 5.5 (5.0-9.0); SPECIFIC GRAVITY <= 1.005 (1.005-1.030); UROBILINOGEN 0.2 E.U./dl (0.2-1.0)
[2017-03-29 02:19] LABS: EPITHELIAL CELLS 30-35
[2017-03-29 03:50] VITALS: BP 168/86
--- NOTE | 2017-03-29 03:50 | NUR ---
Time: 349 A 86 year old FEMAL admitted to 5E under services of ANNA DAVILA DO. Pt. arrived via stretcher from ER. Chief complaint: RASH, TYPE 2 DM, DEHYDRATION. SHAN DEL ANGEL
--- NOTE | 2017-03-29 06:00 | NUR ---
PATIENT STATES SHE IS SCHEDULED TO HAVE MEDIPORT PLACED ON MONDAY (03/30/17) WITH . PATIENT IS ON SURGERY SCHEDULE FOR MONDAY AT 0830 WITH .
--- NOTE | 2017-03-29 07:24 | NUR ---
Switchboard Wirer in to talk to patient. Patient states lives at HOME ALONE with . There are 0 steps in the home. Physician: DR PADRON [facility] Home health services: [facility] 7 DAYS A WEEK-8H A DAY-SPLIT Patient's level of ADLs: MODERATE ASSIST Patient has working utilities: YES DME: [facility] WALKER/BSC/CANE/O2 LINCRE Follow-up physician's appointment after d/c: WILL BE MADE PRIOR TO DC Does patient want to access PORTAL?: Discharge plan HOME. DEBRA BACON REFUSES SNF
[2017-03-29 08:00] VITALS: BP 170/84
--- NOTE | 2017-03-29 08:41 | NUR ---
PHYSICAL THERAPY PAtient eating breakfast at this time. Thank you for this referral. Alona Bradford,PT
[2017-03-29 09:37] LABS: VITAMIN D, 25-HYDROXY 39.9 ng/mL (30-100)
--- NOTE | 2017-03-29 09:41 | NUR ---
physical therapy: PAtient evaluated on 5, full evaluation to follow. Continue with PT as per plan of care with fall and acute debility precautions. Refuses SNF adamantly. Home with paid care givers 8 hours a day as prior and home health nursing. PAtient is moderate complexity via chart review, tests and evaluation: 78445. Thank you for this referral. Alona Bradford,PT
--- NOTE | 2017-03-29 12:54 | NUR ---
PHYSICAL THERAPY 1:1 Time: 20 MINUTES Pain on a scale of 0-10 > Prior to treatment: 0 Post treatment: 0 Progress note: Pt this date reports feeling better states she came in feeling jittery and it was her sugar. Pt completed sit-std sbax1 with cueing for hand placement and making sure getting to the bed before sitting. Pt ambulated 150 feet x 1 sbax1 with cueing to place walker effectively and take proper step length. pt also educated to slow down as got in a hurry and balance became worse. pt was seen for 20 minutes. pt will cont per plan of care. DEBRA MORALEZ
--- NOTE | 2017-03-29 15:09 | NUR ---
PER SURGERY, PATIENT IS FOR OUTPATIENT SURGERY FOR PLACEMENT OF MEDIPORT TOMORROW AT 0730. DISCHARGE ORDER IN PLACE; SHE WILL GO HOME AFTER ASSESSMENT FOR HOME O2. PATIENT REMINDED OF HER APPOINTMENT IN SURGERY AND INSTRUCTED NOT TO EAT OR DRINK AFTER MIDNIGHT.
--- NOTE | 2017-03-29 15:35 | NUR ---
ASSESS FOR HOME O2: AT REST PT'S SPO2 98% ON RA, HR 94, RR 20, BP 138/78. DURING AMBULATION PT'S SPO2 REMAINED BETWEEN 94-96%, HR 98, RR20, BP 142/72. NO INCREASED WOB OR C/O SOB.
[2017-03-29 16:00] VITALS: BP 132/72
--- NOTE | 2017-03-29 16:42 | NUR ---
HOME O2 ASSESSMENT COMPLETED BY RESPIRATORY THERAPIST, AND PER DR. DEGROOT, HOSPITALISTS HAVE BEEN UPDATED RE: PATIENT'S RESPIRATORY STATUS AND OK TO PROCEED WITH THE DISCHARGE.
--- NOTE | 2017-03-29 17:01 | NUR ---
Discharge instructions reviewed with patient. Patient receptive and verbalizes understanding. Follow-up care arranged. Written instructions given to patient. PATIENT DISCHARGED TO [facility] BY WHEELCHAIR, ACCOMPANIED BY [facility], FOR TRANSPORT HOME BY [facility]. JOSEPH PATIÑO
--- NOTE | 2017-03-30 07:56 | NUR ---
PHYSICAL THERAPY CO-SIGN I approve of the Phyical Therapy notes written above. BARBARA GIBSON PT
== END 2017-03-29 17:01 | disposition home or self-care (01) | DRG 637 ==
LOC: ED 01:25 → 5E 02:37 → EDHOLD 02:37 → 5E 02:54
PROVIDERS: Internal Medicine; Student in an Organized Health Care Education/Training Program; ADMIT Emergency Medicine
DX: E11.00 Type 2 diabetes mellitus with hyperosmolarity without nonketotic hyperglycemic-hyperosmolar coma (NKHHC) (principal); N17.0 Acute kidney failure with tubular necrosis; J96.10 Chronic respiratory failure, unspecified whether with hypoxia or hypercapnia; I50.9 Heart failure, unspecified; I11.0 Hypertensive heart disease with heart failure; E11.65 Type 2 diabetes mellitus with hyperglycemia; J44.9 Chronic obstructive pulmonary disease, unspecified; F32.9 Major depressive disorder, single episode, unspecified; R29.6 Repeated falls; K21.9 Gastro-esophageal reflux disease without esophagitis; E78.5 Hyperlipidemia, unspecified; M19.90 Unspecified osteoarthritis, unspecified site; D64.9 Anemia, unspecified; E66.9 Obesity, unspecified; I48.0 Paroxysmal atrial fibrillation; Z96.651 Presence of right artificial knee joint; Z99.81 Dependence on supplemental oxygen; Z86.73 Personal history of transient ischemic attack (TIA), and cerebral infarction without residual deficits; Z90.49 Acquired absence of other specified parts of digestive tract; Z98.42 Cataract extraction status, left eye; Z90.710 Acquired absence of both cervix and uterus; Z82.49 Family history of ischemic heart disease and other diseases of the circulatory system; Z83.3 Family history of diabetes mellitus; Z82.3 Family history of stroke; Z80.3 Family history of malignant neoplasm of breast; Z79.899 Other long term (current) drug therapy; Z79.4 Long term (current) use of insulin; Z68.30 Body mass index [BMI] 30.0-30.9, adult

== ENCOUNTER → 2017-03-30 | Day surgery (SDC) | payer OTHER ==
[2017-03-22 10:33] LABS: BASO % 0.4 % (0.0-1.0); EOS # 0.1 10*3/uL (0.0-0.4); EOS % 2.3 % (1.0-4.0); HEMATOCRIT 37.6 % (37.0-47.0); HEMOGLOBIN 12.6 g/dl (12.0-16.0); LYMPH # 1.8 10*3/uL (1.3-4.4); LYMPH % 31.9 % (27.0-41.0); MEAN CORPUSCULAR HGB 28.8 pg (27.0-31.0); MEAN CORPUSCULAR HGB CONC 33.5 g/dl (33.0-37.0); MEAN PLATELET VOLUME 10.3 fl (9.6-12.3); MONO # 0.5 10*3/uL (0.1-1.0); MONO % 7.9 % (3.0-9.0); NEUT # 3.3 10*3/uL (2.3-7.9); NEUT % 57.1 % (47.0-73.0); PLATELET COUNT AUTOMATED 212 10*3/uL (130-400); RED BLOOD COUNT 4.37 10*6/uL (4.10-5.10); RED CELL DISTRI WIDTH 13.2 % (0-14.5); WHITE BLOOD COUNT 5.7 10*3/uL (4.8-10.8)
[2017-03-22 10:54] LABS: CREATININE 1.39 mg/dL (0.55-1.02); POTASSIUM 3.3 mmol/L (3.5-5.1)
[2017-03-22 13:36] LABS: BILIRUBIN NEGATIVE (NEGATIVE); BLOOD NEGATIVE (NEGATIVE); CLARITY CLEAR (CLEAR); COLOR YELLOW (YELLOW); GLUCOSE TRACE (NEGATIVE); KETONE NEGATIVE (NEGATIVE); LEUKO ESTERASE TRACE (NEGATIVE); NITRITE NEGATIVE (NEGATIVE); SPECIFIC GRAVITY <= 1.005 (1.005-1.030); UROBILINOGEN 0.2 E.U./dl (0.2-1.0)
[2017-03-22 13:57] LABS: BACTERIA TRACE
[~2017-03-30] VITALS: Ht 160 cm; Wt 77.1 kg
--- NOTE | ~2017-03-30 | PROC NOTE ---
[place], [place] PROCEDURE NOTE NAME: [id number] UNIT #: [id number] ROOM: DOCTOR: JIM LO MD BIRTHDATE: [birth year] DOS: 03/30/2017 PREOPERATIVE DIAGNOSIS: Poor intravenous access. POSTOPERATIVE DIAGNOSIS: Poor intravenous access. PROCEDURE: Right internal jugular MediPort placement. SURGEON: Jim Lo MD COMMUNITY HEALTH AGENT: YOUSUF. ANESTHESIA: MAC. INDICATIONS: This is an 86-year-old lady with poor IV access, who is here for a MediPort placement. The procedure and its complications were explained to the patient in detail preoperatively. Complications that were discussed included but were not limited to bleeding, infection, hemothorax, pneumothorax and prolonged pain. She agreed to proceed. DESCRIPTION OF PROCEDURE: After identifying the patient, the patient was brought to the operating suite and laid in the supine position. After IV sedation was administered, a timeout procedure was called and the parts were then painted and draped in the usual sterile fashion. With the help of an ultrasound and by using Seldinger technique, the right internal jugular vein was that were made was accessed with the help of a needle, the wire was passed and it was confirmed to be in good placement on fluoroscopy. Thereafter, a pocket was created 2 fingerbreadths below the right clavicle by injecting local anesthesia and making an incision with a knife and expanding it below the subcutaneous tissue. After adequate pocket was created, the catheter was passed via an introducer through this incision into the neck where the access for the right internal jugular vein was obtained. A sheath and dilator was passed over the wire and catheter was then passed over this dilator into the internal jugular vein and it was confirmed to be in good placement with the help of fluoroscopy. Thereafter, the catheter was cut to adequate size and the port was attached. The port was then fixed to the underlying fascia with the help of 3-0 Prolene in an interrupted fashion. Thereafter, heparin was injected and it was found to flow well and also there was good blood flow returning into the syringe. At this point, the subcutaneous tissue was approximated with the help of 3-0 Vicryl and the skin incision was approximated with the help of 4-0 Vicryl in a subcuticular fashion. Dressing was placed. The patient tolerated the procedure well. An x-ray was ordered for postoperative recovery room. There were no complications. Dr. Jim Lo, the attending surgeon, was present throughout the operating case. [place], [place] PROCEDURE NOTE NAME: JOHANNE MALDONADO UNIT #: [id number] ROOM: DOCTOR: JIM LO MD BIRTHDATE: [birth year] Jim Lo MD CM:PROCNOTE:PROCEDURE NOTE [id number] 1046 JIM LO MD
[2017-03-30 08:40] VITALS: BP 159/61
[2017-03-30 09:33] VITALS: BP 145/72
[2017-03-30 09:48] VITALS: BP 161/90
[2017-03-30 10:03] VITALS: BP 155/88
== END | disposition home or self-care (01) ==
LOC: SDC 03-21 13:15
PROVIDERS: Surgery
DX: Z45.2 Encounter for adjustment and management of vascular access device (principal); I50.9 Heart failure, unspecified; Z95.0 Presence of cardiac pacemaker; J44.9 Chronic obstructive pulmonary disease, unspecified; Z86.73 Personal history of transient ischemic attack (TIA), and cerebral infarction without residual deficits; K21.9 Gastro-esophageal reflux disease without esophagitis; F32.9 Major depressive disorder, single episode, unspecified; Z98.890 Other specified postprocedural states; Z79.4 Long term (current) use of insulin; Z79.899 Other long term (current) drug therapy; E11.22 Type 2 diabetes mellitus with diabetic chronic kidney disease; I13.0 Hypertensive heart and chronic kidney disease with heart failure and stage 1 through stage 4 chronic kidney disease, or unspecified chronic kidney disease; N18.3 Chronic kidney disease, stage 3 (moderate); M19.90 Unspecified osteoarthritis, unspecified site; Z90.49 Acquired absence of other specified parts of digestive tract; Z82.49 Family history of ischemic heart disease and other diseases of the circulatory system

== ENCOUNTER → 2017-05-03 | Outpatient (CLI) | payer OTHER ==
[2017-05-03 15:13] LABS: BASO % 0.5 % (0.0-1.0); EOS # 0.1 10*3/uL (0.0-0.4); EOS % 2.3 % (1.0-4.0); HEMATOCRIT 34.1 % (37.0-47.0); HEMOGLOBIN 11.5 g/dl (12.0-16.0); LYMPH # 2.3 10*3/uL (1.3-4.4); LYMPH % 39.9 % (27.0-41.0); MEAN CELL VOLUME 86.5 fl (81.0-99.0); MEAN CORPUSCULAR HGB 29.2 pg (27.0-31.0); MEAN CORPUSCULAR HGB CONC 33.7 g/dl (33.0-37.0); MEAN PLATELET VOLUME 10.9 fl (9.6-12.3); MONO # 0.4 10*3/uL (0.1-1.0); MONO % 7.2 % (3.0-9.0); NEUT # 2.8 10*3/uL (2.3-7.9); PLATELET COUNT AUTOMATED 159 10*3/uL (130-400); RED BLOOD COUNT 3.94 10*6/uL (4.10-5.10); RED CELL DISTRI WIDTH 13.5 % (0-14.5); WHITE BLOOD COUNT 5.7 10*3/uL (4.8-10.8)
[2017-05-03 15:40] LABS: ALBUMIN 3.4 gm/dl (3.1-4.5); ALKALINE PHOSPHATASE 96 U/L (45-117); BUN 18 mg/dl (7-24); CHLORIDE 103 mmol/L (98-107); CHOLESTEROL 169 mg/dL (<200); CREATININE 0.98 mg/dL (0.55-1.02); HDL CHOLESTEROL 34 mg/dl (40-60); LDL CHOLESTEROL 75 mg/dL (9-159); PHOSPHOROUS 3.3 mg/dL (2.5-4.9); POTASSIUM 3.5 mmol/L (3.5-5.1); SGOT/AST 20 IU/L (3-35); SGPT/ALT 29 U/L (12-78); SODIUM 136 mmol/L (136-145); THYROXINE (T4) TOTAL 8.5 ug/dl (4.8-13.9); TOTAL PROTEIN 7.1 gm/dL (6.4-8.2); TRIGLYCERIDES 300 mg/dl (<150); VLDL CHOLESTEROL 60 mg/dL (6-40)
[2017-05-03 15:41] LABS: PREALBUMIN 21 mg/dl (20-40)
== END ==
LOC: LAB 14:13
PROVIDERS: Nurse Practitioner
DX: I11.9 Hypertensive heart disease without heart failure (principal); E11.9 Type 2 diabetes mellitus without complications; G62.9 Polyneuropathy, unspecified; J30.2 Other seasonal allergic rhinitis; J44.9 Chronic obstructive pulmonary disease, unspecified

== ENCOUNTER 2017-06-11 03:44 | Inpatient (IN) | payer OTHER ==
[2017-06-11] VITALS (7 sets, daily range): BP systolic 129–170; BP diastolic 50–81
[~2017-06-11] VITALS: Ht 160 cm; Wt 80.0 kg
--- NOTE | ~2017-06-11 | PR ---
[place], [place] PROGRESS NOTE [id number] UNIT #: [id number] ROOM: 506 DOCTOR: FLOR SIDDIQI MD BIRTHDATE: [birth year] DOS: SUBJECTIVE: This is an 86-year-old [place] lady whom I have known for a long time. 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 She was admitted to the hospital because diabetes was out of control and apparently while she was here, she was found to have ventricular tachycardia. Dr. Edmonds saw this patient. She had an echocardiogram, which showed normal LV systolic function and no regional wall motion abnormality. PHYSICAL EXAMINATION: GENERAL: The patient is alert, oriented, very pleasant. Examination is unremarkable. LABORATORY DATA: Monitor shows normal sinus rhythm and it has shown monomorphic ventricular tachycardia that was somewhat prolonged. Pacemaker has not been interrogated yet. IMPRESSION: She also has been complaining of chest tightness, squeezing feeling in the chest for quite a long time. Even though stress test was negative few months ago, suspicion for coronary artery disease is higher now that she has ventricular tachycardia. RECOMMENDATIONS: My recommendation is to perform a diagnostic heart catheterization and selective coronary angiogram. I discussed the risks and the benefits of this including CVA, NM, , hematoma, vascular injury and renal insufficiency with her. She understands and would like to proceed. For this the patient will be transferred to [facility] tomorrow morning for the procedure. FLOR SIDDIQI MD CM:PNTRANS 1021 1620 FLOR SIDDIQI MD 06/14/17 1621 interface
--- NOTE | ~2017-06-11 | PR ---
[place], [place] PROGRESS NOTE NAME: JOHANNE MALDONADO [facility] #: [id number] UNIT #: [id number] ROOM: 506 DOCTOR: JANNY MANZANO MD BIRTHDATE: [birth year] DOS: 06/13/2017 CARDIOLOGY FOLLOWUP VISIT NOTE REASON FOR FOLLOWUP: Nonsustained V-tach. SUBJECTIVE: The patient is feeling better. Denies any chest pain or shortness of breath. No palpitations, no dizziness. She slept good last night. No PND, no orthopnea. Her blood sugars are being controlled. No fever or chills. REVIEW OF SYSTEMS: Review of the 8 systems negative except as mentioned above. PHYSICAL EXAMINATION: VITAL SIGNS: Blood pressure 147/71, pulse 69, respirations 18. GENERAL: Alert, comfortable, in no acute distress. HEAD AND NECK: Neck supple, no distended neck veins. No carotid bruit. Pupils are round, equal. No jaundice. Tongue was moist. CHEST: Symmetrical, nontender. LUNGS: Clear to auscultation bilaterally. HEART: Regular rhythm, no S3. Grade 1/6 systolic murmur. ABDOMEN: Benign, nontender. Bowel sounds normal. EXTREMITIES: Showed no edema. Distal pulses are palpable. SKIN: Warm and dry. No cyanosis, no clubbing. RECTAL: Deferred. GENITOURINARY: Deferred. Labs and medications reviewed. IMPRESSION: 1. Nonsustained ventricular tachycardia, asymptomatic. 2. Hypokalemia. 3. Severe hyperglycemia. 4. Status post pacemaker insertion. 5. Hypertension. 6. Non-morbid obesity. RECOMMENDATIONS: 1. Her mag level is normal at 2.3. The potassium last was 3.6. We will supplement the potassium as needed. 2. We will interrogate the pacemaker and her 2D echo is pending. 3. Nonsustained V-tach possibly could be due to her electrolyte imbalance. Her LV function is normal on the 2D echo. It shows no further V-tach and she will be followed by Dr. Najera, who is her tar heat exchanger cleaner. 4. We will interrogate the pacemaker today and also if the patient stays in the hospital, I would consider Lexiscan stress test tomorrow to rule out any underlying ischemic heart disease. 5. There is no family at bedside at the time of my examination. [place], [place] PROGRESS NOTE NAME: JOHANNE MALDONADO UNIT #: [id number] ROOM: [facility] DOCTOR: JOSE JUAN MONTOYA,JANNY BIRTHDATE: [birth year] JANNY MANZANO MD CM:PNTRANS 1345 [id number] JANNY MANZANO MD 06/15/17 0558 interface
--- NOTE | ~2017-06-11 | EKG ---
[place], [place] ELECTROCARDIOGRAM REPORT NAME: JOHANNE MALDONADO UNIT #: [id number] ROOM: 506 DOCTOR: FLOR SIDDIQI MD BIRTHDATE: [birth year] DOS: 06/11/2017 TIME: 0430 hours. FINDINGS: 1. Normal sinus rhythm at 76 beats per minute. 2. Occasional atrial pacing is noted. 3. Incomplete left bundle-branch block with marked left axis deviation. 4. An abnormal ECG. 5. No previous tracing is available for comparison. FLOR SIDDIQI MD CM:EKGRPT:ELECTROCARDIOGRAM REPORT [id number] 1032 FLOR SIDDIQI MD
--- NOTE | ~2017-06-11 | CON ---
[place], [place] REPORT OF CONSULTATION NAME: JOHANNE MALDONADO UNIT #: [id number] ROOM: 506 DOCTOR: JANNY MANZANO MD BIRTHDATE: [birth year] DOS: 06/12/2017 CARDIOLOGY CONSULTATION REASON FOR CONSULTATION: V-tach. CLINICAL HISTORY: The patient is an 86-year-old, patient known to Dr. Hodgson. Since Dr. Hodgson is out of town, [facility] Cardiology was asked to assess the patient. The patient is an 86-year-old patient with history of hypertension, pacemaker, paroxysmal atrial fibrillation, home oxygen, presents to the Emergency Room with high blood sugars. She denies any chest pain, shortness of breath, palpitations or dizziness. No nausea, vomiting. No fever or chills. She was admitted for further management and then she was noted to have some nonsustained V-tach on the monitor. Hence, Cardiology was consulted. She denied any chest pain, shortness of breath, palpitation, or dizziness. No nausea, vomiting, diarrhea. No fever or chills. No hemoptysis. No hematuria or dysuria. No headache. No tingling, numbness or weakness. REVIEW OF SYSTEMS: Review of the 8 systems negative except as mentioned above. PAST MEDICAL HISTORY: 1. Hypertension. 2. History of CVA. 3. COPD. 4. Obesity. 5. Dyslipidemia. 6. Home oxygen. 7. Paroxysmal atrial fibrillation. 8. Vitamin D deficiency. PAST SURGICAL HISTORY: The patient with history of pacemaker insertion, cholecystectomy, hysterectomy, appendectomy, right knee replacement. MEDICATIONS: Home medications reviewed. ALLERGIES: Reviewed. SOCIAL HISTORY: The patient does not smoke or drink. Does not use illicit drugs. FAMILY HISTORY: Mother had hypertension, breast cancer, diabetes. Father has hypertension, at the age of 79 from a stroke. ALLERGIES: No known drug allergies. PHYSICAL EXAMINATION: VITAL SIGNS: Blood pressure 115/65, pulse 79, respiration was 18, weight 79 kilos with a BMI of 30.9. [place], [place] REPORT OF CONSULTATION NAME: JOHANNE MALDONADO UNIT #: [id number] ROOM: 506 DOCTOR: JANNY MANZANO MD BIRTHDATE: [birth year] GENERAL: Alert, comfortable, in no acute distress. HEENT: Pupils are round and equal. No jaundice. NECK: Supple. No distended neck veins. No carotid bruits. CHEST: Symmetrical, nontender. The patient had a pacemaker in the left side of the chest and a port on the right side of the chest. LUNGS: Few scattered rhonchi, but good air entry bilaterally. HEART: Regular rhythm, no S3. Grade 1/6 systolic murmur. ABDOMEN: Benign, nontender. Bowel sounds normal. EXTREMITIES: Showed 1+ edema. Distal pulses are fair. SKIN: Warm and dry. No cyanosis, no clubbing. NEUROLOGIC: The patient is alert, oriented. No focal neurologic deficit. RECTAL: Deferred. GENITOURINARY: Deferred. REVIEW OF THE DIAGNOSTIC TESTS: Her EKG rhythm strips and imaging studies reviewed. CBC, chemistry reviewed. EKG showed sinus rhythm with occasional atrial pacing. The rhythm strip showed sinus rhythm with occasional wide complex rhythm, suggestive of nonsustained V-tach. LABORATORY DATA: Her magnesium is 2.3 and the potassium is 3.6. The troponin was 0.015. IMPRESSION: 1. Wide complex rhythm, suggestive of nonsustained ventricular tachycardia. The patient is asymptomatic. 2. History of pacemaker insertion. 3. History of paroxysmal atrial fibrillation. 4. History of cerebrovascular accident. 5. Hypertension. 6. Hyperglycemia. 7. Diabetes type 2. 8. Home oxygen dependent. 9. Non-morbid obesity. RECOMMENDATIONS: 1. Continue her carvedilol 25 mg b.i.d. 2. Her magnesium level is 2.4. We will give potassium 40 mEq to keep her potassium greater than 4. 3. We will try to interrogate her pacemaker tomorrow. 4. Check 2D echo for LV function and valvular function. 5. She denies any chest pain or shortness of breath and clinically the patient is not in any acute heart failure. 6. We will return her care to her primary electrical lineworker, Dr. Hodgson when he is back in town. The above treatment and plan discussed with the patient and all questions were answered. There is no family at bedside at the time of my examination. [place], [place] REPORT OF CONSULTATION NAME: JOEL,JOHANNE E UNIT #: [id number] ROOM: [facility] DOCTOR: JOSE JUAN MONTOYA,JANNY BIRTHDATE: [birth year] JANNY MANZANO MD CM:CONSTR:REPORT OF CONSULTATION 1650 06/13/17 0010 interface
[2017-06-11 04:33] LABS: BASO % 0.3 % (0.0-1.0); EOS # 0.1 10*3/uL (0.0-0.4); EOS % 1.6 % (1.0-4.0); HEMATOCRIT 34.7 % (37.0-47.0); HEMOGLOBIN 11.8 g/dl (12.0-16.0); LYMPH # 2.9 10*3/uL (1.3-4.4); LYMPH % 34.2 % (27.0-41.0); MEAN CELL VOLUME 84.4 fl (81.0-99.0); MEAN CORPUSCULAR HGB 28.7 pg (27.0-31.0); MEAN PLATELET VOLUME 11.2 fl (9.6-12.3); MONO # 0.6 10*3/uL (0.1-1.0); MONO % 7.3 % (3.0-9.0); NEUT # 4.8 10*3/uL (2.3-7.9); NEUT % 55.8 % (47.0-73.0); PLATELET COUNT AUTOMATED 187 10*3/uL (130-400); RED BLOOD COUNT 4.11 10*6/uL (4.10-5.10); RED CELL DISTRI WIDTH 13.2 % (0-14.5); WHITE BLOOD COUNT 8.6 10*3/uL (4.8-10.8)
[2017-06-11 04:48] LABS: ALBUMIN 3.7 gm/dl (3.1-4.5); CREATININE 1.41 mg/dL (0.55-1.02); POTASSIUM 2.9 mmol/L (3.5-5.1); TOTAL PROTEIN 7.3 gm/dL (6.4-8.2)
[2017-06-11 05:09] LABS: BILIRUBIN NEGATIVE (NEGATIVE); BLOOD TRACE-INTACT (NEGATIVE); CLARITY CLEAR (CLEAR); COLOR YELLOW (YELLOW); GLUCOSE 3+ (NEGATIVE); KETONE NEGATIVE (NEGATIVE); LEUKO ESTERASE NEGATIVE (NEGATIVE); NITRITE NEGATIVE (NEGATIVE); SPECIFIC GRAVITY <= 1.005 (1.005-1.030); UROBILINOGEN 0.2 E.U./dl (0.2-1.0)
[2017-06-11 05:19] LABS: BACTERIA 1+
[2017-06-11 10:07] LABS: CREATININE 1.27 mg/dL (0.55-1.02); PHOSPHOROUS 2.2 mg/dL (2.5-4.9); POTASSIUM 2.9 mmol/L (3.5-5.1)
[2017-06-12] VITALS: BP 150/89
[2017-06-12 00:15] VITALS: BP 148/88
[2017-06-12 06:36] LABS: BASO % 0.3 % (0.0-1.0); EOS # 0.1 10*3/uL (0.0-0.4); EOS % 1.5 % (1.0-4.0); HEMOGLOBIN 11.3 g/dl (12.0-16.0); LYMPH # 1.7 10*3/uL (1.3-4.4); LYMPH % 25.2 % (27.0-41.0); MEAN CELL VOLUME 85.9 fl (81.0-99.0); MEAN CORPUSCULAR HGB 28.5 pg (27.0-31.0); MEAN CORPUSCULAR HGB CONC 33.2 g/dl (33.0-37.0); MEAN PLATELET VOLUME 11.1 fl (9.6-12.3); MONO # 0.4 10*3/uL (0.1-1.0); MONO % 5.8 % (3.0-9.0); NEUT # 4.4 10*3/uL (2.3-7.9); NEUT % 66.1 % (47.0-73.0); PLATELET COUNT AUTOMATED 167 10*3/uL (130-400); RED BLOOD COUNT 3.96 10*6/uL (4.10-5.10); RED CELL DISTRI WIDTH 13.3 % (0-14.5); WHITE BLOOD COUNT 6.6 10*3/uL (4.8-10.8)
[2017-06-12 06:45] LABS: BUN 16 mg/dl (7-24); CHLORIDE 101 mmol/L (98-107); CREATININE 0.79 mg/dL (0.55-1.02); POTASSIUM 3.6 mmol/L (3.5-5.1); SODIUM 138 mmol/L (136-145)
[2017-06-12 06:46] LABS: PHOSPHOROUS 1.9 mg/dL (2.5-4.9)
[2017-06-12 08:00] VITALS: BP 115/65
[2017-06-12 12:00] VITALS: BP 138/70
[2017-06-12 16:00] VITALS: BP 150/67
[2017-06-12 20:00] VITALS: BP 143/70
[2017-06-13] VITALS: BP 133/56
[2017-06-13 08:00] VITALS: BP 147/71
[2017-06-13 12:00] VITALS: BP 170/77
[2017-06-13 16:00] VITALS: BP 151/71
[2017-06-13 20:00] VITALS: BP 152/79
[2017-06-14] VITALS: BP 150/79
[2017-06-14 08:00] VITALS: BP 133/67
[2017-06-14 12:00] VITALS: BP 148/75
[2017-06-14] MEDS ORDERED: LISINOPRIL10 M1 PO (12:34)
[2017-06-14 16:00] VITALS: BP 141/80
[2017-06-14 20:00] VITALS: BP 154/86
[2017-06-15] VITALS: BP 149/75
== END 2017-06-15 06:15 | disposition short-term general hospital (02) | DRG 682 ==
LOC: ED 03:44 → EDHOLD 05:07 → 5E 05:07
PROVIDERS: Internal Medicine Nephrology; Student in an Organized Health Care Education/Training Program
PROC: 4B02XSZ Measurement of Cardiac Pacemaker, External Approach (ICD-10-PCS; principal; 2017-06-14)
DX: N17.0 Acute kidney failure with tubular necrosis (principal); E11.00 Type 2 diabetes mellitus with hyperosmolarity without nonketotic hyperglycemic-hyperosmolar coma (NKHHC); I47.2 Ventricular tachycardia; I31.3 Pericardial effusion (noninflammatory); E83.39 Other disorders of phosphorus metabolism; E11.22 Type 2 diabetes mellitus with diabetic chronic kidney disease; E87.1 Hypo-osmolality and hyponatremia; I50.32 Chronic diastolic (congestive) heart failure; I13.0 Hypertensive heart and chronic kidney disease with heart failure and stage 1 through stage 4 chronic kidney disease, or unspecified chronic kidney disease; E87.8 Other disorders of electrolyte and fluid balance, not elsewhere classified; I48.0 Paroxysmal atrial fibrillation; E87.6 Hypokalemia; D64.9 Anemia, unspecified; K21.9 Gastro-esophageal reflux disease without esophagitis; F32.9 Major depressive disorder, single episode, unspecified; J44.9 Chronic obstructive pulmonary disease, unspecified; Z96.651 Presence of right artificial knee joint; E78.5 Hyperlipidemia, unspecified; E66.09 Other obesity due to excess calories; M15.0 Primary generalized (osteo)arthritis; N18.3 Chronic kidney disease, stage 3 (moderate); Z90.710 Acquired absence of both cervix and uterus; Z95.0 Presence of cardiac pacemaker; Z98.42 Cataract extraction status, left eye; Z98.41 Cataract extraction status, right eye; Z79.4 Long term (current) use of insulin; Z79.899 Other long term (current) drug therapy; Z86.73 Personal history of transient ischemic attack (TIA), and cerebral infarction without residual deficits; Z90.49 Acquired absence of other specified parts of digestive tract; Z83.3 Family history of diabetes mellitus; Z82.3 Family history of stroke; Z80.3 Family history of malignant neoplasm of breast; Z82.49 Family history of ischemic heart disease and other diseases of the circulatory system; Z81.8 Family history of other mental and behavioral disorders; Z68.30 Body mass index [BMI] 30.0-30.9, adult

== ENCOUNTER 2017-06-21 07:01 | Emergency (ER) | payer OTHER ==
[~2017-06-21] VITALS: Ht 160 cm; Wt 77.1 kg
[~2017-06-21 07:01] MED LIST changes: +LISINOPRIL10 M1 PO
[2017-06-21 07:49] LABS: BASO % 0.5 % (0.0-1.0); EOS # 0.1 10*3/uL (0.0-0.4); EOS % 2.4 % (1.0-4.0); HEMATOCRIT 36.3 % (37.0-47.0); HEMOGLOBIN 11.8 g/dl (12.0-16.0); LYMPH # 1.9 10*3/uL (1.3-4.4); LYMPH % 33.3 % (27.0-41.0); MEAN CORPUSCULAR HGB 28.9 pg (27.0-31.0); MEAN CORPUSCULAR HGB CONC 32.5 g/dl (33.0-37.0); MEAN PLATELET VOLUME 10.8 fl (9.6-12.3); MONO # 0.5 10*3/uL (0.1-1.0); MONO % 8.9 % (3.0-9.0); NEUT # 3.1 10*3/uL (2.3-7.9); NEUT % 54.7 % (47.0-73.0); PLATELET COUNT AUTOMATED 160 10*3/uL (130-400); RED BLOOD COUNT 4.08 10*6/uL (4.10-5.10); RED CELL DISTRI WIDTH 13.4 % (0-14.5); WHITE BLOOD COUNT 5.7 10*3/uL (4.8-10.8)
[2017-06-21 08:05] LABS: ALBUMIN 3.6 gm/dl (3.1-4.5); ALKALINE PHOSPHATASE 92 U/L (45-117); BUN 20 mg/dl (7-24); CHLORIDE 102 mmol/L (98-107); POTASSIUM 3.7 mmol/L (3.5-5.1); SGOT/AST 21 IU/L (3-35); SGPT/ALT 33 U/L (12-78); SODIUM 137 mmol/L (136-145); TOTAL PROTEIN 7.2 gm/dL (6.4-8.2)
[2017-06-21 08:08] LABS: TROPONIN I < 0.015 ng/ml (<0.045)
[2017-06-21 08:19] LABS: ACT PARTIAL THROMBO TIME 24.8 SECONDS (19.5-32.1)
[2017-06-21 09:30] VITALS: BP 158/75
== END 2017-06-21 11:20 | disposition home or self-care (01) ==
LOC: ED 07:01
PROVIDERS: Emergency Medicine
DX: R07.89 Other chest pain (principal); R04.0 Epistaxis; I82.409 Acute embolism and thrombosis of unspecified deep veins of unspecified lower extremity; I26.99 Other pulmonary embolism without acute cor pulmonale; I10 Essential (primary) hypertension; I48.0 Paroxysmal atrial fibrillation; J44.9 Chronic obstructive pulmonary disease, unspecified; I11.0 Hypertensive heart disease with heart failure; I50.9 Heart failure, unspecified; F32.9 Major depressive disorder, single episode, unspecified; K21.9 Gastro-esophageal reflux disease without esophagitis; E11.65 Type 2 diabetes mellitus with hyperglycemia; E78.00 Pure hypercholesterolemia, unspecified; E87.1 Hypo-osmolality and hyponatremia; Z86.73 Personal history of transient ischemic attack (TIA), and cerebral infarction without residual deficits; Z79.899 Other long term (current) drug therapy; Z79.4 Long term (current) use of insulin; Z90.49 Acquired absence of other specified parts of digestive tract; Z90.710 Acquired absence of both cervix and uterus; Z90.89 Acquired absence of other organs; Z95.0 Presence of cardiac pacemaker

== ENCOUNTER 2017-07-23 18:34 | Inpatient (IN) | payer OTHER ==
[~2017-07-23] VITALS: Ht 160 cm; Wt 77.1 kg
--- NOTE | ~2017-07-23 | EKG ---
[place], [place] ELECTROCARDIOGRAM REPORT NAME: JOHANNE MALDONADO UNIT #: [id number] ROOM: [facility] DOCTOR: FLOR SIDDIQI MD BIRTHDATE: [birth year] DOS: 07/23/2017 TIME: 1848 hours. FINDINGS: 1. Normal sinus rhythm at 80 beats per minute. 2. Left anterior hemiblock. 3. An abnormal ECG. 4. No previous tracing is available for comparison. FLOR SIDDIQI MD CM:EKGRPT:ELECTROCARDIOGRAM REPORT 04 44 FLOR SIDDIQI MD
[2017-07-23 18:38] VITALS: BP 150/80
[2017-07-23 19:18] LABS: BASO % 0.1 % (0.0-1.0); EOS # 0.2 10*3/uL (0.0-0.4); EOS % 1.9 % (1.0-4.0); HEMATOCRIT 35.1 % (37.0-47.0); HEMOGLOBIN 11.7 g/dl (12.0-16.0); LYMPH # 2.1 10*3/uL (1.3-4.4); LYMPH % 24.9 % (27.0-41.0); MEAN CELL VOLUME 86.9 fl (81.0-99.0); MEAN CORPUSCULAR HGB CONC 33.3 g/dl (33.0-37.0); MEAN PLATELET VOLUME 10.9 fl (9.6-12.3); MONO # 0.5 10*3/uL (0.1-1.0); MONO % 6.1 % (3.0-9.0); NEUT # 5.5 10*3/uL (2.3-7.9); NEUT % 66.5 % (47.0-73.0); PLATELET COUNT AUTOMATED 172 10*3/uL (130-400); RED BLOOD COUNT 4.04 10*6/uL (4.10-5.10); RED CELL DISTRI WIDTH 12.7 % (0-14.5); WHITE BLOOD COUNT 8.3 10*3/uL (4.8-10.8)
[2017-07-23 19:35] LABS: ALBUMIN 3.6 gm/dl (3.1-4.5); ALKALINE PHOSPHATASE 112 U/L (45-117); BUN 24 mg/dl (7-24); CHLORIDE 99 mmol/L (98-107); CREATININE 1.11 mg/dL (0.55-1.02); POTASSIUM 3.5 mmol/L (3.5-5.1); SGOT/AST 21 IU/L (3-35); SGPT/ALT 28 U/L (12-78); SODIUM 138 mmol/L (136-145); TOTAL PROTEIN 7.4 gm/dL (6.4-8.2)
[2017-07-23 19:36] LABS: TROPONIN I < 0.015 ng/ml (<0.045)
[2017-07-23 19:58] VITALS: BP 174/82
[2017-07-23 20:00] VITALS: BP 160/73
[2017-07-23] MEDS ORDERED: DEMADEX20 M1 PO (20:46)
[2017-07-23] MEDS ORDERED: FLONASE ALLERG9.9 ML NAS (20:47)
[2017-07-23] MEDS ORDERED: ARTIFICIAL TEA1 EACH OU (20:48)
[2017-07-23] MEDS ORDERED: IRON325 M1 PO (20:49)
[2017-07-23] MEDS ORDERED: ADVIL200 M1 PO (20:52)
[2017-07-24] VITALS: BP 118/78
[2017-07-24 07:13] LABS: HEMATOCRIT 33.6 % (37.0-47.0); HEMOGLOBIN 11.2 g/dl (12.0-16.0); MEAN CELL VOLUME 88.4 fl (81.0-99.0); MEAN CORPUSCULAR HGB 29.5 pg (27.0-31.0); MEAN CORPUSCULAR HGB CONC 33.3 g/dl (33.0-37.0); MEAN PLATELET VOLUME 11.6 fl (9.6-12.3); PLATELET COUNT AUTOMATED 167 10*3/uL (130-400); RED CELL DISTRI WIDTH 12.7 % (0-14.5); WHITE BLOOD COUNT 6.6 10*3/uL (4.8-10.8)
[2017-07-24 07:24] LABS: ACT PARTIAL THROMBO TIME 24.1 SECONDS (20.8-31.5)
[2017-07-24 07:38] LABS: PLATELET SUFFICIENCY NORMAL (NORMAL); TOTAL CELLS COUNTED 100 #CELLS
[2017-07-24 07:47] LABS: VITAMIN D, 25-HYDROXY 41.3 ng/mL (30-100)
[2017-07-24 07:52] LABS: ALBUMIN 3.1 gm/dl (3.1-4.5); ALKALINE PHOSPHATASE 107 U/L (45-117); BUN 23 mg/dl (7-24); CHLORIDE 103 mmol/L (98-107); CHOLESTEROL 155 mg/dL (<200); CREATININE 1.05 mg/dL (0.55-1.02); FREE T4 0.89 ng/dl (0.76-1.46); HDL CHOLESTEROL 32 mg/dl (40-60); LDL CHOLESTEROL 103 mg/dL (9-159); PHOSPHOROUS 2.6 mg/dL (2.5-4.9); POTASSIUM 4.1 mmol/L (3.5-5.1); SGOT/AST 21 IU/L (3-35); SGPT/ALT 25 U/L (12-78); SODIUM 140 mmol/L (136-145); TOTAL PROTEIN 6.7 gm/dL (6.4-8.2); TRIGLYCERIDES 100 mg/dl (<150); VLDL CHOLESTEROL 20 mg/dL (6-40)
[2017-07-24 07:56] LABS: THYROID STIM HORMONE (HS) 0.643 uIU/ml (0.358-4.75)
[2017-07-24 08:00] VITALS: BP 156/80
[2017-07-24 12:00] VITALS: BP 155/78
[2017-07-24 20:00] VITALS: BP 169/86
[2017-07-25] VITALS: BP 138/67
[2017-07-25 08:00] VITALS: BP 126/68
[2017-07-25 12:00] VITALS: BP 148/66
[2017-07-25 16:00] VITALS: BP 139/89
[2017-07-25 20:00] VITALS: BP 140/92
[2017-07-26] VITALS: BP 175/70
[2017-07-26 01:46] VITALS: BP 140/80
[2017-07-26 08:00] VITALS: BP 144/78
[2017-07-26] MEDS ORDERED: AZITHROMYCIN500 M2 PO (10:46)
[2017-07-26] MEDS ORDERED: ASPIRIN ADULT L81 M2 PO (10:46)
[2017-07-26] MEDS ORDERED: PREDNISONE10 MG PO (10:48)
== END 2017-07-26 13:53 | disposition home health service (06) | DRG 191 ==
LOC: ED 18:34 → EDHOLD 20:04 → 5E 20:04
PROVIDERS: Hospitalist; Physician Assistant
DX: J44.1 Chronic obstructive pulmonary disease with (acute) exacerbation (principal); I13.0 Hypertensive heart and chronic kidney disease with heart failure and stage 1 through stage 4 chronic kidney disease, or unspecified chronic kidney disease; E11.22 Type 2 diabetes mellitus with diabetic chronic kidney disease; E11.65 Type 2 diabetes mellitus with hyperglycemia; R07.89 Other chest pain; I48.0 Paroxysmal atrial fibrillation; I50.9 Heart failure, unspecified; N18.3 Chronic kidney disease, stage 3 (moderate); E78.5 Hyperlipidemia, unspecified; M19.90 Unspecified osteoarthritis, unspecified site; K21.9 Gastro-esophageal reflux disease without esophagitis; Z96.651 Presence of right artificial knee joint; F32.9 Major depressive disorder, single episode, unspecified; D64.9 Anemia, unspecified; Z99.81 Dependence on supplemental oxygen; Z79.4 Long term (current) use of insulin; Z79.899 Other long term (current) drug therapy; Z98.42 Cataract extraction status, left eye; Z90.49 Acquired absence of other specified parts of digestive tract; Z90.710 Acquired absence of both cervix and uterus; Z82.49 Family history of ischemic heart disease and other diseases of the circulatory system; Z83.3 Family history of diabetes mellitus; Z82.0 Family history of epilepsy and other diseases of the nervous system; Z82.3 Family history of stroke; Z86.73 Personal history of transient ischemic attack (TIA), and cerebral infarction without residual deficits; Z79.82 Long term (current) use of aspirin; Z79.51 Long term (current) use of inhaled steroids; M94.0 Chondrocostal junction syndrome [Tietze]

== ENCOUNTER → 2017-08-02 | Outpatient (CLI) | payer OTHER ==
[~2017-08-02] MED LIST changes: +ADVIL200 M1 PO; +ARTIFICIAL TEA1 EACH OU; +ASPIRIN ADULT L81 M2 PO; +AZITHROMYCIN500 M2 PO; +DEMADEX20 M1 PO; +FLONASE ALLERG9.9 ML NAS; +IRON325 M1 PO; +PREDNISONE10 MG PO
== END | disposition home or self-care (01) ==
LOC: RESCLI 00:50
DX: I25.10 Atherosclerotic heart disease of native coronary artery without angina pectoris (principal); I11.0 Hypertensive heart disease with heart failure; E78.2 Mixed hyperlipidemia; D64.9 Anemia, unspecified; G89.29 Other chronic pain; E11.22 Type 2 diabetes mellitus with diabetic chronic kidney disease; K59.00 Constipation, unspecified; J30.2 Other seasonal allergic rhinitis; J44.9 Chronic obstructive pulmonary disease, unspecified; I50.9 Heart failure, unspecified; E87.6 Hypokalemia; I48.0 Paroxysmal atrial fibrillation; E55.9 Vitamin D deficiency, unspecified; E13.40 Other specified diabetes mellitus with diabetic neuropathy, unspecified; Z79.4 Long term (current) use of insulin

== ENCOUNTER 2017-08-19 11:36 | Inpatient (IN) | payer OTHER ==
[~2017-08-19] VITALS: Ht 160 cm; Wt 81.3 kg
[2017-08-19 11:44] VITALS: BP 139/73
[2017-08-19] MEDS ORDERED: GOOD NEIGHBOR L10 MG PO (12:10)
[2017-08-19] MEDS ORDERED: TORSEMIDE20 MG PO (12:11)
[2017-08-19 12:12] LABS: BASO % 0.3 % (0.0-1.0); EOS # 0.1 10*3/uL (0.0-0.4); EOS % 2.4 % (1.0-4.0); HEMATOCRIT 37.1 % (37.0-47.0); HEMOGLOBIN 12.2 g/dl (12.0-16.0); LYMPH # 1.5 10*3/uL (1.3-4.4); LYMPH % 25.3 % (27.0-41.0); MEAN CELL VOLUME 89.2 fl (81.0-99.0); MEAN CORPUSCULAR HGB 29.3 pg (27.0-31.0); MEAN CORPUSCULAR HGB CONC 32.9 g/dl (33.0-37.0); MEAN PLATELET VOLUME 10.5 fl (9.6-12.3); MONO # 0.4 10*3/uL (0.1-1.0); NEUT # 3.8 10*3/uL (2.3-7.9); NEUT % 64.7 % (47.0-73.0); PLATELET COUNT AUTOMATED 152 10*3/uL (130-400); RED BLOOD COUNT 4.16 10*6/uL (4.10-5.10); RED CELL DISTRI WIDTH 13.2 % (0-14.5); WHITE BLOOD COUNT 5.9 10*3/uL (4.8-10.8)
[2017-08-19] MEDS ORDERED: VITAMIN D CAP 500 (12:12)
[2017-08-19] MEDS ORDERED: CARVEDILOL12.5 MG PO (12:12)
[2017-08-19] MEDS ORDERED: AMLODIPINE BES2.5 MG PO (12:12)
[2017-08-19] MEDS ORDERED: MIRALAX POWDER17 G1 PO (12:12)
[2017-08-19 12:21] LABS: ACT PARTIAL THROMBO TIME 21.6 SECONDS (20.8-31.5); INTERNATIONAL NORM RATIO 0.9 (2.0-3.5)
[2017-08-19 12:29] LABS: ALBUMIN 3.5 gm/dl (3.1-4.5); ALKALINE PHOSPHATASE 117 U/L (45-117); BUN 21 mg/dl (7-24); CHLORIDE 102 mmol/L (98-107); CREATININE 0.98 mg/dL (0.55-1.02); POTASSIUM 3.8 mmol/L (3.5-5.1); SGOT/AST 23 IU/L (3-35); SGPT/ALT 46 U/L (12-78); SODIUM 137 mmol/L (136-145); TOTAL PROTEIN 7.1 gm/dL (6.4-8.2)
[2017-08-19 12:32] LABS: TROPONIN I < 0.015 ng/ml (<0.045)
[2017-08-19 13:12] VITALS: BP 130/75
[2017-08-19 13:50] VITALS: BP 143/87
[2017-08-19 16:00] VITALS: BP 138/62
[2017-08-19 20:00] VITALS: BP 137/67
[2017-08-20] VITALS: BP 145/66
[2017-08-20 05:48] LABS: BUN 19 mg/dl (7-24); CHLORIDE 104 mmol/L (98-107); CREATININE 0.89 mg/dL (0.55-1.02); PHOSPHOROUS 3.1 mg/dL (2.5-4.9); POTASSIUM 2.9 mmol/L (3.5-5.1); SODIUM 140 mmol/L (136-145)
[2017-08-20 05:56] LABS: BASO % 0.2 % (0.0-1.0); EOS # 0.1 10*3/uL (0.0-0.4); EOS % 2.9 % (1.0-4.0); HEMATOCRIT 33.5 % (37.0-47.0); HEMOGLOBIN 10.8 g/dl (12.0-16.0); LYMPH # 1.6 10*3/uL (1.3-4.4); LYMPH % 34.4 % (27.0-41.0); MEAN CELL VOLUME 90.1 fl (81.0-99.0); MEAN CORPUSCULAR HGB CONC 32.2 g/dl (33.0-37.0); MEAN PLATELET VOLUME 10.6 fl (9.6-12.3); MONO # 0.4 10*3/uL (0.1-1.0); NEUT # 2.4 10*3/uL (2.3-7.9); NEUT % 53.1 % (47.0-73.0); PLATELET COUNT AUTOMATED 145 10*3/uL (130-400); RED BLOOD COUNT 3.72 10*6/uL (4.10-5.10); RED CELL DISTRI WIDTH 13.2 % (0-14.5); WHITE BLOOD COUNT 4.5 10*3/uL (4.8-10.8)
[2017-08-20 08:00] VITALS: BP 155/70
[2017-08-20 12:00] VITALS: BP 151/87
[2017-08-20 16:00] VITALS: BP 134/74
[2017-08-20 20:00] VITALS: BP 146/60
[2017-08-21 06:02] LABS: BASO % 0.2 % (0.0-1.0); EOS # 0.2 10*3/uL (0.0-0.4); EOS % 3.4 % (1.0-4.0); HEMATOCRIT 33.6 % (37.0-47.0); LYMPH # 1.6 10*3/uL (1.3-4.4); LYMPH % 36.1 % (27.0-41.0); MEAN CELL VOLUME 91.1 fl (81.0-99.0); MEAN CORPUSCULAR HGB 29.8 pg (27.0-31.0); MEAN CORPUSCULAR HGB CONC 32.7 g/dl (33.0-37.0); MEAN PLATELET VOLUME 10.3 fl (9.6-12.3); MONO # 0.4 10*3/uL (0.1-1.0); MONO % 9.3 % (3.0-9.0); NEUT # 2.2 10*3/uL (2.3-7.9); NEUT % 50.8 % (47.0-73.0); PLATELET COUNT AUTOMATED 141 10*3/uL (130-400); RED BLOOD COUNT 3.69 10*6/uL (4.10-5.10); RED CELL DISTRI WIDTH 13.3 % (0-14.5); WHITE BLOOD COUNT 4.4 10*3/uL (4.8-10.8)
[2017-08-21 06:28] LABS: BUN 19 mg/dl (7-24); CHLORIDE 104 mmol/L (98-107); CREATININE 0.99 mg/dL (0.55-1.02); POTASSIUM 3.5 mmol/L (3.5-5.1); SODIUM 140 mmol/L (136-145)
[2017-08-21 08:00] VITALS: BP 132/72
[2017-08-21 12:00] VITALS: BP 149/81
[2017-08-21 16:00] VITALS: BP 155/76
[2017-08-21 20:00] VITALS: BP 148/67
[2017-08-22] VITALS: BP 128/58
[2017-08-22 07:16] LABS: BASO % 0.4 % (0.0-1.0); EOS # 0.2 10*3/uL (0.0-0.4); EOS % 4.1 % (1.0-4.0); HEMATOCRIT 34.2 % (37.0-47.0); LYMPH # 1.5 10*3/uL (1.3-4.4); MEAN CELL VOLUME 90.5 fl (81.0-99.0); MEAN CORPUSCULAR HGB 29.1 pg (27.0-31.0); MEAN CORPUSCULAR HGB CONC 32.2 g/dl (33.0-37.0); MONO # 0.4 10*3/uL (0.1-1.0); MONO % 8.7 % (3.0-9.0); NEUT # 2.4 10*3/uL (2.3-7.9); NEUT % 53.1 % (47.0-73.0); PLATELET COUNT AUTOMATED 146 10*3/uL (130-400); RED BLOOD COUNT 3.78 10*6/uL (4.10-5.10); RED CELL DISTRI WIDTH 13.2 % (0-14.5); WHITE BLOOD COUNT 4.6 10*3/uL (4.8-10.8)
[2017-08-22 07:28] LABS: BUN 15 mg/dl (7-24); CHLORIDE 106 mmol/L (98-107); CREATININE 0.81 mg/dL (0.55-1.02); POTASSIUM 3.3 mmol/L (3.5-5.1); SODIUM 142 mmol/L (136-145)
[2017-08-22 08:00] VITALS: BP 175/78
[2017-08-22] MEDS ORDERED: LASIX40 MG PO (10:51)
[2017-08-22] MEDS ORDERED: FEOSOL,FER220 MG/5 M PO (10:54)
[2017-08-22] MEDS ORDERED: K-TAB20 MEQ PO (10:58)
[2017-08-22] MEDS ORDERED: DOXYCYCLINE100 M3 PO (10:58)
== END 2017-08-22 12:53 | disposition home or self-care (01) | DRG 603 ==
LOC: ED 11:36 → EDHOLD 12:45 → 4E 12:45
PROVIDERS: Hospitalist; Student in an Organized Health Care Education/Training Program
DX: L03.116 Cellulitis of left lower limb (principal); E11.22 Type 2 diabetes mellitus with diabetic chronic kidney disease; E11.65 Type 2 diabetes mellitus with hyperglycemia; I50.32 Chronic diastolic (congestive) heart failure; I13.0 Hypertensive heart and chronic kidney disease with heart failure and stage 1 through stage 4 chronic kidney disease, or unspecified chronic kidney disease; I48.0 Paroxysmal atrial fibrillation; N18.3 Chronic kidney disease, stage 3 (moderate); J44.9 Chronic obstructive pulmonary disease, unspecified; E78.5 Hyperlipidemia, unspecified; Z96.651 Presence of right artificial knee joint; K21.9 Gastro-esophageal reflux disease without esophagitis; M19.90 Unspecified osteoarthritis, unspecified site; E66.9 Obesity, unspecified; F32.9 Major depressive disorder, single episode, unspecified; L03.115 Cellulitis of right lower limb; Z79.82 Long term (current) use of aspirin; Z99.81 Dependence on supplemental oxygen; Z79.899 Other long term (current) drug therapy; Z79.4 Long term (current) use of insulin; Z86.73 Personal history of transient ischemic attack (TIA), and cerebral infarction without residual deficits; Z68.31 Body mass index [BMI] 31.0-31.9, adult; Z90.49 Acquired absence of other specified parts of digestive tract; Z98.42 Cataract extraction status, left eye; Z90.710 Acquired absence of both cervix and uterus; Z80.3 Family history of malignant neoplasm of breast; Z83.3 Family history of diabetes mellitus; Z82.3 Family history of stroke; Z81.8 Family history of other mental and behavioral disorders; Z82.49 Family history of ischemic heart disease and other diseases of the circulatory system

== ENCOUNTER → 2017-08-28 | Outpatient (CLI) | payer OTHER ==
[~2017-08-28] MED LIST changes: +AMLODIPINE BES2.5 MG PO; +CARVEDILOL12.5 MG PO; +DOXYCYCLINE100 M3 PO; +FEOSOL,FER220 MG/5 M PO; +GOOD NEIGHBOR L10 MG PO; +LASIX40 MG PO; +MIRALAX POWDER17 G1 PO; +VITAMIN D CAP 500
== END | disposition home or self-care (01) ==
LOC: RESCLI 02:18
DX: I12.9 Hypertensive chronic kidney disease with stage 1 through stage 4 chronic kidney disease, or unspecified chronic kidney disease (principal); N18.3 Chronic kidney disease, stage 3 (moderate); R60.9 Edema, unspecified; E13.22 Other specified diabetes mellitus with diabetic chronic kidney disease; E78.2 Mixed hyperlipidemia; D64.9 Anemia, unspecified; J30.2 Other seasonal allergic rhinitis; E87.6 Hypokalemia; E55.9 Vitamin D deficiency, unspecified; J44.9 Chronic obstructive pulmonary disease, unspecified; F32.9 Major depressive disorder, single episode, unspecified; Z95.0 Presence of cardiac pacemaker; Z79.4 Long term (current) use of insulin; Z90.710 Acquired absence of both cervix and uterus

== ENCOUNTER → 2017-09-04 | Outpatient (CLI) | payer OTHER | END | disposition home or self-care (01) | LOC: RESCLI 04:14 | DX: I12.9 Hypertensive chronic kidney disease with stage 1 through stage 4 chronic kidney disease, or unspecified chronic kidney disease (principal); N18.9 Chronic kidney disease, unspecified; E11.22 Type 2 diabetes mellitus with diabetic chronic kidney disease; R60.9 Edema, unspecified; E78.2 Mixed hyperlipidemia; G89.29 Other chronic pain; H60.8X3 Other otitis externa, bilateral ==

== ENCOUNTER 2017-09-28 22:59 | Emergency (ER) | payer OTHER ==
[~2017-09-28] VITALS: Ht 160 cm; Wt 77.1 kg
[2017-09-28 23:53] VITALS: BP 172/74
[2017-09-29] MEDS ORDERED: CYCLOBENZAPRINE5 M3 PO (00:17)
== END 2017-09-29 01:04 | disposition home or self-care (01) ==
LOC: ED 22:59
DX: M54.12 Radiculopathy, cervical region (principal); I13.0 Hypertensive heart and chronic kidney disease with heart failure and stage 1 through stage 4 chronic kidney disease, or unspecified chronic kidney disease; E11.22 Type 2 diabetes mellitus with diabetic chronic kidney disease; N18.3 Chronic kidney disease, stage 3 (moderate); I50.9 Heart failure, unspecified; J44.9 Chronic obstructive pulmonary disease, unspecified; K21.9 Gastro-esophageal reflux disease without esophagitis; M19.90 Unspecified osteoarthritis, unspecified site; E78.5 Hyperlipidemia, unspecified; E66.9 Obesity, unspecified; I48.91 Unspecified atrial fibrillation; Z79.899 Other long term (current) drug therapy; Z90.49 Acquired absence of other specified parts of digestive tract; Z90.710 Acquired absence of both cervix and uterus; Z98.890 Other specified postprocedural states; Z96.651 Presence of right artificial knee joint; Z95.0 Presence of cardiac pacemaker; Z79.4 Long term (current) use of insulin; Z79.82 Long term (current) use of aspirin

== ENCOUNTER 2017-10-01 15:08 | Inpatient (IN) | payer OTHER ==
[~2017-10-01] VITALS: Ht 160 cm; Wt 77.7 kg
[2017-10-01] VITALS (8 sets, daily range): BP systolic 140–212; BP diastolic 71–100
[2017-10-01 16:55] LABS: BASO % 0.4 % (0.0-1.0); EOS # 0.2 10*3/uL (0.0-0.4); EOS % 2.5 % (1.0-4.0); HEMATOCRIT 37.1 % (37.0-47.0); HEMOGLOBIN 12.6 g/dl (12.0-16.0); LYMPH % 28.9 % (27.0-41.0); MEAN CELL VOLUME 85.7 fl (81.0-99.0); MEAN CORPUSCULAR HGB 29.1 pg (27.0-31.0); MEAN PLATELET VOLUME 11.1 fl (9.6-12.3); MONO # 0.5 10*3/uL (0.1-1.0); MONO % 7.2 % (3.0-9.0); NEUT # 4.1 10*3/uL (2.3-7.9); NEUT % 60.6 % (47.0-73.0); PLATELET COUNT AUTOMATED 182 10*3/uL (130-400); RED BLOOD COUNT 4.33 10*6/uL (4.10-5.10); RED CELL DISTRI WIDTH 13.3 % (0-14.5); WHITE BLOOD COUNT 6.8 10*3/uL (4.8-10.8)
[2017-10-01 17:01] LABS: ACT PARTIAL THROMBO TIME 20.5 SECONDS (20.8-31.5)
[2017-10-01 17:15] LABS: ALBUMIN 3.7 gm/dl (3.1-4.5); ALKALINE PHOSPHATASE 118 U/L (45-117); BUN 12 mg/dl (7-24); CHLORIDE 103 mmol/L (98-107); CREATININE 0.84 mg/dL (0.55-1.02); LIPASE 56 U/L (73-393); POTASSIUM 3.1 mmol/L (3.5-5.1); SGOT/AST 31 IU/L (3-35); SGPT/ALT 31 U/L (12-78); SODIUM 140 mmol/L (136-145); TOTAL PROTEIN 7.1 gm/dL (6.4-8.2)
[2017-10-01 17:24] LABS: TROPONIN I < 0.015 ng/ml (<0.045)
[2017-10-01 18:14] LABS: BILIRUBIN NEGATIVE (NEGATIVE); BLOOD NEGATIVE (NEGATIVE); CLARITY CLEAR (CLEAR); COLOR YELLOW (YELLOW); GLUCOSE 1+ (NEGATIVE); KETONE NEGATIVE (NEGATIVE); LEUKO ESTERASE NEGATIVE (NEGATIVE); NITRITE NEGATIVE (NEGATIVE); PH 7.5 (5.0-9.0); UROBILINOGEN 0.2 E.U./dl (0.2-1.0)
[2017-10-01 18:21] LABS: BACTERIA TRACE; RBC 0-2 rbc/hpf (0-2); WBC 0-2 wbc/hpf (0-5)
[2017-10-02] VITALS: BP 187/63
[2017-10-02 06:45] LABS: BASO % 0.3 % (0.0-1.0); EOS # 0.2 10*3/uL (0.0-0.4); EOS % 2.6 % (1.0-4.0); HEMATOCRIT 34.1 % (37.0-47.0); HEMOGLOBIN 11.5 g/dl (12.0-16.0); LYMPH % 32.6 % (27.0-41.0); MEAN CELL VOLUME 87.2 fl (81.0-99.0); MEAN CORPUSCULAR HGB 29.4 pg (27.0-31.0); MEAN CORPUSCULAR HGB CONC 33.7 g/dl (33.0-37.0); MONO # 0.5 10*3/uL (0.1-1.0); MONO % 7.4 % (3.0-9.0); NEUT # 3.5 10*3/uL (2.3-7.9); NEUT % 56.6 % (47.0-73.0); PLATELET COUNT AUTOMATED 176 10*3/uL (130-400); RED BLOOD COUNT 3.91 10*6/uL (4.10-5.10); RED CELL DISTRI WIDTH 13.6 % (0-14.5); WHITE BLOOD COUNT 6.1 10*3/uL (4.8-10.8)
[2017-10-02 07:13] LABS: BUN 13 mg/dl (7-24); CHLORIDE 104 mmol/L (98-107); CREATININE 0.91 mg/dL (0.55-1.02); HDL CHOLESTEROL 29 mg/dl (40-60); POTASSIUM 2.7 mmol/L (3.5-5.1); SODIUM 141 mmol/L (136-145); TRIGLYCERIDES 205 mg/dl (<150); VLDL CHOLESTEROL 41 mg/dL (6-40)
[2017-10-02 07:21] LABS: CHOLESTEROL 157 mg/dL (<200); LDL CHOLESTEROL 87 mg/dL (9-159); PHOSPHOROUS 3.6 mg/dL (2.5-4.9)
[2017-10-02 08:00] VITALS: BP 147/73
[2017-10-02 08:08] LABS: VITAMIN D, 25-HYDROXY 31.9 ng/mL (30-100)
[2017-10-02] MEDS ORDERED: COREG12.5 M1 PO (09:55)
[2017-10-02] MEDS ORDERED: NORVASC2.5 MG PO (09:56)
[2017-10-02] MEDS ORDERED: MIRALAX POWDER17 G1 PO (09:58)
[2017-10-02] MEDS ORDERED: LEVEMIR FL100 UNIT/1 SQ (09:59)
[2017-10-02] MEDS ORDERED: FLORASTOR250 MG PO (10:02)
[2017-10-02] MEDS ORDERED: NOVOLOG FL100 UNIT/1 SQ (10:02)
[2017-10-02] MEDS ORDERED: 24 HOUR ALLER15.8 ML NAS (10:04)
[2017-10-02] MEDS ORDERED: TORSEMIDE20 MG PO (10:05)
[2017-10-02] MEDS ORDERED: FEOSOL,FER220 MG/5 M PO (10:08)
[2017-10-02] MEDS ORDERED: FLOVENT HFA12 GM INH (10:09)
[2017-10-02 12:00] VITALS: BP 149/98
[2017-10-02 16:00] VITALS: BP 149/57
[2017-10-02 20:00] VITALS: BP 149/56
[2017-10-03] VITALS: BP 149/64
[2017-10-03 07:28] LABS: BASO % 0.4 % (0.0-1.0); EOS # 0.2 10*3/uL (0.0-0.4); EOS % 3.5 % (1.0-4.0); HEMATOCRIT 34.9 % (37.0-47.0); HEMOGLOBIN 11.6 g/dl (12.0-16.0); LYMPH # 1.7 10*3/uL (1.3-4.4); LYMPH % 36.3 % (27.0-41.0); MEAN CELL VOLUME 87.7 fl (81.0-99.0); MEAN CORPUSCULAR HGB 29.1 pg (27.0-31.0); MEAN CORPUSCULAR HGB CONC 33.2 g/dl (33.0-37.0); MONO # 0.4 10*3/uL (0.1-1.0); MONO % 8.4 % (3.0-9.0); NEUT # 2.4 10*3/uL (2.3-7.9); PLATELET COUNT AUTOMATED 162 10*3/uL (130-400); RED BLOOD COUNT 3.98 10*6/uL (4.10-5.10); RED CELL DISTRI WIDTH 13.3 % (0-14.5); WHITE BLOOD COUNT 4.8 10*3/uL (4.8-10.8)
[2017-10-03 07:38] LABS: ALBUMIN 3.3 gm/dl (3.1-4.5); ALKALINE PHOSPHATASE 120 U/L (45-117); BUN 15 mg/dl (7-24); CHLORIDE 104 mmol/L (98-107); CREATININE 0.89 mg/dL (0.55-1.02); POTASSIUM 3.5 mmol/L (3.5-5.1); SGOT/AST 34 IU/L (3-35); SGPT/ALT 30 U/L (12-78); SODIUM 141 mmol/L (136-145); TOTAL PROTEIN 6.6 gm/dL (6.4-8.2)
[2017-10-03 08:00] VITALS: BP 150/69
[2017-10-03] MEDS ORDERED: KEFLEX 500 MG E2 CAP PO (10:12)
[2017-10-03] MEDS ORDERED: LISINOPRIL10 M1 PO (12:30)
== END 2017-10-03 11:55 | disposition home health service (06) | DRG 305 ==
LOC: ED 15:08 → 4E 17:52 → EDHOLD 17:52 → 4E 18:14
PROVIDERS: Internal Medicine; Nurse Practitioner Family; Registered Nurse
DX: I16.9 Hypertensive crisis, unspecified (principal); E11.65 Type 2 diabetes mellitus with hyperglycemia; I48.0 Paroxysmal atrial fibrillation; L03.116 Cellulitis of left lower limb; L03.115 Cellulitis of right lower limb; I50.9 Heart failure, unspecified; J44.9 Chronic obstructive pulmonary disease, unspecified; N18.3 Chronic kidney disease, stage 3 (moderate); I13.0 Hypertensive heart and chronic kidney disease with heart failure and stage 1 through stage 4 chronic kidney disease, or unspecified chronic kidney disease; F32.9 Major depressive disorder, single episode, unspecified; K21.9 Gastro-esophageal reflux disease without esophagitis; E78.5 Hyperlipidemia, unspecified; M19.90 Unspecified osteoarthritis, unspecified site; Z96.651 Presence of right artificial knee joint; E87.6 Hypokalemia; Z86.73 Personal history of transient ischemic attack (TIA), and cerebral infarction without residual deficits; Z90.49 Acquired absence of other specified parts of digestive tract; Z98.42 Cataract extraction status, left eye; Z95.0 Presence of cardiac pacemaker; Z79.51 Long term (current) use of inhaled steroids; Z79.899 Other long term (current) drug therapy; Z79.82 Long term (current) use of aspirin; Z90.710 Acquired absence of both cervix and uterus; Z80.3 Family history of malignant neoplasm of breast; Z82.49 Family history of ischemic heart disease and other diseases of the circulatory system; Z82.3 Family history of stroke; Z83.3 Family history of diabetes mellitus; Z81.8 Family history of other mental and behavioral disorders

== ENCOUNTER 2017-10-27 09:38 | Inpatient (IN) | payer OTHER ==
[~2017-10-27] VITALS: Ht 160 cm; Wt 99.6 kg
--- NOTE | ~2017-10-27 | PR ---
[place], [place] PROGRESS NOTE [id number] UNIT #: [id number] ROOM: 506 DOCTOR: SADIQ HUDSON MD BIRTHDATE: [birth year] DOS: 10/31/2017 SUBJECTIVE: A 24-hour events noted. Discussed with the nursing staff. PHYSICAL EXAMINATION: VITAL SIGNS: Blood pressure is 130/50, patient is status post femur surgery, comfortable at this point. HEAD, EYES, EARS, NOSE, AND THROAT: Unremarkable. NECK: Supple, no JVD. LUNGS: Diminished breath sounds. HEART: Heart sounds are regular. LABORATORY DATA: Hemoglobin 8.4, hematocrit 25.2. Potassium is 3.0, creatinine is 0.97. GFR is excellent. IMPRESSION: Status post fracture of the proximal end of the right femur with fall, hypokalemia, hyperglycemia, osteoarthritis, history of CHF, gastroesophageal reflux disease, hypertension, oxygen dependency. The patient was seen by Dr. Najera yesterday. Progressing quite well. No cardiac decompensation and we will follow up. SADIQ HUDSON MD CM:PNTRANS 0753 1503 SADIQ HUDSON MD 10/31/17 1503 interface
--- NOTE | ~2017-10-27 | PR ---
[place], [place] PROGRESS NOTE NAME: JOHANNE MALDONADO UNIT #: [id number] ROOM: 506 DOCTOR: FLOR SIDDIQI MD BIRTHDATE: [birth year] DOS: 10/30/2017 SUBJECTIVE: She sat in a chair today. She has some pain, but not so much when she is lying in bed. She has no breathing difficulty, has not had the chest pain or palpitation. She has some dry cough. OBJECTIVE: GENERAL: She is alert, oriented, fairly comfortable. VITAL SIGNS: Temperature is normal, pulse is 88 and regular, blood pressure 149/44. NECK: JVP is normal. LUNGS: She has some crackles in both lungs. CARDIAC: No edema in the lower extremities. IMPRESSION: 1. This patient has no evidence of cardiac decompensation at this time. She has had diastolic heart failure before and now is hemodynamically stable. No acute cardiac issues at hand. 2. Status post right femur surgery, is progressing satisfactorily. FLOR SIDDIQI MD CM:PNTRANS 1834 03 FLOR SIDDIQI MD 10/30/173 interface
--- NOTE | ~2017-10-27 | PR ---
[place], [place] PROGRESS NOTE NAME: JOHANNE MALDONADO UNIT #: [id number] ROOM: 506 DOCTOR: FLOR SIDDIQI MD BIRTHDATE: [birth year] DOS: 11/01/2017 SUBJECTIVE: She had right femoral surgery done a few days ago. She has been sitting in the recliner, but I do not believe she took weight on the legs yet. She has no fever or chills. Her breathing is fine. She does not have much pain. PHYSICAL EXAMINATION: GENERAL: The patient is very pleasant, alert. She is comfortable. Complexion is fine. VITAL SIGNS: Pulse is 100, blood pressure 156/73. NECK: JVP is normal. LUNGS: She has some fine crackles. EXTREMITIES: No edema in lower extremities. IMPRESSION: 1. She is progressing satisfactorily from right femoral surgery. 2. There is no evidence of cardiac decompensation. 3. Blood pressure at times is elevated, but this may be due to pain. No new recommendations. FLOR SIDDIQI MD CM:PNTRANS 1837 0144 FLOR SIDDIQI MD 11/02/17 0143 interface
--- NOTE | ~2017-10-27 | PR ---
[place], [place] PROGRESS NOTE NAME: JOHANNE MALDONADO UNIT #: [id number] ROOM: 506 DOCTOR: FLOR SIDDIQI MD BIRTHDATE: [birth year] DOS: 10/29/2017 SUBJECTIVE: The patient had her surgery yesterday. She has a fair amount of local pain, but has no chest pain or any palpitations. She has had a dry cough, but the chest seems to rattle quite a bit. No fever or chills. She has not had any breathing difficulty either. PHYSICAL EXAMINATION: GENERAL: She is alert, oriented, not in much pain, complexion is fine. VITAL SIGNS: Temperature is normal, pulse is 84 and regular, blood pressure 126/50. NECK: Normal JVP. LUNGS: She has just a few rhonchi on the left side and no edema in the lower extremities. LABORATORY DATA: Monitor shows normal sinus, heart rate in the 70s and 80s. IMPRESSION: 1. This patient with hypertension and previous dysrhythmias, remains asymptomatic, post-orthopedic surgery. 2. Hypertension, controlled. PLAN: No new recommendations. FLOR SIDDIQI MD CM:PNTRANS [phone] FLOR SIDDIQI MD 10/29/17 1023 interface
--- NOTE | ~2017-10-27 | CON ---
[place], [place] REPORT OF CONSULTATION NAME[id number] UNIT #: [id number] ROOM: 506 DOCTOR: FLOR SIDDIQI MD BIRTHDATE: [birth year] DOS: 10/28/2017 HISTORY OF PRESENT ILLNESS: This is an 87-year-old -[place] woman with a history of chronic diastolic heart failure in the setting of normal LV systolic function. She had ventricular tachycardia at one time and in May 2017, had a diagnostic heart catheterization, which demonstrated normal coronary arteries and LV ejection fraction of 80%. She had severe bradycardia many years ago and a dual chamber pacemaker was implanted by me in this hospital in February 2013. She had a CVA in the remote past and she has chronic kidney disease, GERD, depression and also has morbid obesity. She also has essential hypertension, hyperlipidemia and paroxysmal atrial fibrillation and diabetes mellitus. She was at home and apparently was going to answer the phone and turned around, next things she realized she was on the ground. She had no palpitations, chest pain, dizziness prior to this. No sweating or nausea. She had a pain in her left leg. She has a fracture of the femur and needs surgical treatment. In the past, she has not had any PND, orthopnea or much swelling in the legs and has not had any palpitations, loss of consciousness. She does not smoke nor does she drink alcoholic beverages. HOME MEDICATIONS: Aspirin, carvedilol, cyclobenzaprine, ferrous sulfate, insulin, lisinopril, loratadine, potassium chloride, and torsemide 40 mg b.i.d. This dose seems to keep her out of diastolic failure. PHYSICAL EXAMINATION: GENERAL: The patient who is a very pleasant. She is alert. She is oriented. She does not seem to be in pain. VITAL SIGNS: Pulse is regular at 80, blood pressure 129/60. NECK: JVP is normal. CARDIOVASCULAR: Cardiac auscultation does not reveal any murmurs or rubs. LUNGS: Clear to auscultation with good breath sounds. EXTREMITIES: Minimal edema in the lower extremity. Pedal pulses are palpable. LABORATORY DATA: Her ECG showed normal sinus rhythm with left anterior hemiblock and nonspecific T-wave in chest leads. IMPRESSION: This patient with normal coronary arteries 6 months ago and normal left ventricular systolic function is at average risk for perioperative cardiac complications. Since she is known to have diastolic heart failure, I would be rather judicious with IV fluids in this patient. I thank you for this consult. [place], [place] REPORT OF CONSULTATION NAME: JOHANNE MALDONADO UNIT #: [id number] ROOM: 506 DOCTOR: FLOR SIDDIQI MD BIRTHDATE: [birth year] FLOR SIDDIQI MD CM:CONSTR:REPORT OF CONSULTATION 0658 10/28/17 0931 interface
[~2017-10-27 09:38] MED LIST changes: +24 HOUR ALLER15.8 ML NAS; +FLOVENT HFA12 GM INH; +KEFLEX 500 MG E2 CAP PO; +LEVEMIR FL100 UNIT/1 SQ; +NOVOLOG FL100 UNIT/1 SQ
[2017-10-27 09:41] VITALS: BP 178/90
[2017-10-27 10:21] LABS: BASO % 0.4 % (0.0-1.0); EOS # 0.1 10*3/uL (0.0-0.4); EOS % 1.9 % (1.0-4.0); HEMATOCRIT 36.4 % (37.0-47.0); HEMOGLOBIN 12.3 g/dl (12.0-16.0); LYMPH # 1.4 10*3/uL (1.3-4.4); LYMPH % 25.4 % (27.0-41.0); MEAN CELL VOLUME 86.5 fl (81.0-99.0); MEAN CORPUSCULAR HGB 29.2 pg (27.0-31.0); MEAN CORPUSCULAR HGB CONC 33.8 g/dl (33.0-37.0); MEAN PLATELET VOLUME 10.7 fl (9.6-12.3); MONO # 0.3 10*3/uL (0.1-1.0); MONO % 6.2 % (3.0-9.0); NEUT # 3.5 10*3/uL (2.3-7.9); NEUT % 65.7 % (47.0-73.0); PLATELET COUNT AUTOMATED 154 10*3/uL (130-400); RED BLOOD COUNT 4.21 10*6/uL (4.10-5.10); RED CELL DISTRI WIDTH 12.7 % (0-14.5); WHITE BLOOD COUNT 5.3 10*3/uL (4.8-10.8)
[2017-10-27 10:34] LABS: ACT PARTIAL THROMBO TIME 22.7 SECONDS (20.8-31.5)
[2017-10-27 10:38] LABS: ALKALINE PHOSPHATASE 134 U/L (45-117); BUN 16 mg/dl (7-24); CHLORIDE 101 mmol/L (98-107); CREATININE 0.91 mg/dL (0.55-1.02); SGOT/AST 21 IU/L (3-35); SGPT/ALT 28 U/L (12-78); SODIUM 139 mmol/L (136-145); TOTAL PROTEIN 7.4 gm/dL (6.4-8.2)
[2017-10-27 11:30] VITALS: BP 160/70
[2017-10-27 12:00] VITALS: BP 157/84
[2017-10-27 13:36] VITALS: BP 100/57
[2017-10-27] MEDS ORDERED: TORSEMIDE20 MG PO (15:24)
[2017-10-27 16:00] VITALS: BP 156/92
[2017-10-27 20:00] VITALS: BP 162/77
[2017-10-27 21:20] LABS: BILIRUBIN NEGATIVE (NEGATIVE); BLOOD NEGATIVE (NEGATIVE); CLARITY CLEAR (CLEAR); COLOR YELLOW (YELLOW); GLUCOSE 1+ (NEGATIVE); KETONE TRACE (NEGATIVE); LEUKO ESTERASE NEGATIVE (NEGATIVE); NITRITE NEGATIVE (NEGATIVE); UROBILINOGEN 0.2 E.U./dl (0.2-1.0)
[2017-10-27 21:27] LABS: BACTERIA 2+; RBC 0-2 rbc/hpf (0-2)
[2017-10-28] VITALS (11 sets, daily range): BP systolic 129–154; BP diastolic 60–95
[2017-10-28 03:41] LABS: BASO % 0.1 % (0.0-1.0); HEMATOCRIT 30.7 % (37.0-47.0); LYMPH # 1.4 10*3/uL (1.3-4.4); LYMPH % 13.7 % (27.0-41.0); MEAN CELL VOLUME 89.2 fl (81.0-99.0); MEAN CORPUSCULAR HGB 28.8 pg (27.0-31.0); MEAN CORPUSCULAR HGB CONC 32.2 g/dl (33.0-37.0); MEAN PLATELET VOLUME 10.7 fl (9.6-12.3); MONO # 0.7 10*3/uL (0.1-1.0); MONO % 6.6 % (3.0-9.0); NEUT # 8.2 10*3/uL (2.3-7.9); NEUT % 79.1 % (47.0-73.0); PLATELET COUNT AUTOMATED 159 10*3/uL (130-400); RED BLOOD COUNT 3.44 10*6/uL (4.10-5.10); RED CELL DISTRI WIDTH 12.9 % (0-14.5); WHITE BLOOD COUNT 10.3 10*3/uL (4.8-10.8)
[2017-10-28 03:43] LABS: HEMOGLOBIN 9.9 g/dl (12.0-16.0)
[2017-10-28 03:51] LABS: ACT PARTIAL THROMBO TIME 21.1 SECONDS (20.8-31.5)
[2017-10-28 04:00] LABS: ALBUMIN 3.4 gm/dl (3.1-4.5); CREATININE 1.23 mg/dL (0.55-1.02); FREE T4 0.82 ng/dl (0.76-1.46); PHOSPHOROUS 3.5 mg/dL (2.5-4.9); POTASSIUM 3.8 mmol/L (3.5-5.1); TOTAL PROTEIN 6.5 gm/dL (6.4-8.2)
[2017-10-28 04:05] LABS: THYROID STIM HORMONE (HS) 0.867 uIU/ml (0.358-4.75)
[2017-10-28 08:16] LABS: VITAMIN D, 25-HYDROXY 27.5 ng/mL (30-100)
[2017-10-28 17:12] LABS: HEMATOCRIT 27.7 % (37.0-47.0)
[2017-10-29 00:12] VITALS: BP 116/70; BP 145/51
[2017-10-29 06:18] LABS: BASO % 0.2 % (0.0-1.0); HEMATOCRIT 24.8 % (37.0-47.0); HEMOGLOBIN 8.1 g/dl (12.0-16.0); LYMPH # 1.5 10*3/uL (1.3-4.4); LYMPH % 14.8 % (27.0-41.0); MEAN CELL VOLUME 88.6 fl (81.0-99.0); MEAN CORPUSCULAR HGB 28.9 pg (27.0-31.0); MEAN CORPUSCULAR HGB CONC 32.7 g/dl (33.0-37.0); MEAN PLATELET VOLUME 11.7 fl (9.6-12.3); MONO # 0.7 10*3/uL (0.1-1.0); MONO % 7.3 % (3.0-9.0); NEUT # 7.9 10*3/uL (2.3-7.9); NEUT % 77.2 % (47.0-73.0); PLATELET COUNT AUTOMATED 146 10*3/uL (130-400); RED CELL DISTRI WIDTH 13.2 % (0-14.5); WHITE BLOOD COUNT 10.2 10*3/uL (4.8-10.8)
[2017-10-29 06:30] LABS: BUN 13 mg/dl (7-24); CHLORIDE 108 mmol/L (98-107); POTASSIUM 3.5 mmol/L (3.5-5.1); SODIUM 141 mmol/L (136-145)
[2017-10-29 08:00] VITALS: BP 126/50
[2017-10-29 12:00] VITALS: BP 150/71
[2017-10-29 16:00] VITALS: BP 122/56
[2017-10-29 20:13] VITALS: BP 113/75
[2017-10-30] VITALS (12 sets, daily range): BP systolic 96–156; BP diastolic 39–60
[2017-10-30 08:36] LABS: ALBUMIN 2.9 gm/dl (3.1-4.5); ALKALINE PHOSPHATASE 90 U/L (45-117); BUN 13 mg/dl (7-24); CHLORIDE 105 mmol/L (98-107); CREATININE 0.97 mg/dL (0.55-1.02); SGOT/AST 52 IU/L (3-35); SGPT/ALT 21 U/L (12-78); SODIUM 141 mmol/L (136-145); TOTAL PROTEIN 5.9 gm/dL (6.4-8.2)
[2017-10-30 11:21] LABS: BASO % 0.2 % (0.0-1.0); EOS # 0.1 10*3/uL (0.0-0.4); EOS % 0.4 % (1.0-4.0); HEMATOCRIT 21.3 % (37.0-47.0); HEMOGLOBIN 7.1 g/dl (12.0-16.0); LYMPH # 1.8 10*3/uL (1.3-4.4); LYMPH % 12.1 % (27.0-41.0); MEAN CELL VOLUME 86.9 fl (81.0-99.0); MEAN CORPUSCULAR HGB CONC 33.3 g/dl (33.0-37.0); MEAN PLATELET VOLUME 11.4 fl (9.6-12.3); NEUT # 11.5 10*3/uL (2.3-7.9); NEUT % 79.5 % (47.0-73.0); PLATELET COUNT AUTOMATED 117 10*3/uL (130-400); RED BLOOD COUNT 2.45 10*6/uL (4.10-5.10); RED CELL DISTRI WIDTH 13.2 % (0-14.5); WHITE BLOOD COUNT 14.5 10*3/uL (4.8-10.8)
[2017-10-30 20:33] LABS: HEMATOCRIT 23.5 % (37.0-47.0); HEMOGLOBIN 7.8 g/dl (12.0-16.0)
[2017-10-31] VITALS: BP 132/67
[2017-10-31 04:00] VITALS: BP 130/59
[2017-10-31 07:21] LABS: BASO % 0.2 % (0.0-1.0); EOS # 0.2 10*3/uL (0.0-0.4); EOS % 1.6 % (1.0-4.0); HEMATOCRIT 25.2 % (37.0-47.0); HEMOGLOBIN 8.4 g/dl (12.0-16.0); LYMPH # 2.5 10*3/uL (1.3-4.4); LYMPH % 20.5 % (27.0-41.0); MEAN CELL VOLUME 83.7 fl (81.0-99.0); MEAN CORPUSCULAR HGB 27.9 pg (27.0-31.0); MEAN CORPUSCULAR HGB CONC 33.3 g/dl (33.0-37.0); MEAN PLATELET VOLUME 11.7 fl (9.6-12.3); MONO % 7.9 % (3.0-9.0); NEUT # 8.4 10*3/uL (2.3-7.9); NEUT % 68.7 % (47.0-73.0); NUCLEATED RED BLOOD CELL 0.3 % (0.0-0.0); PLATELET COUNT AUTOMATED 146 10*3/uL (130-400); RED BLOOD COUNT 3.01 10*6/uL (4.10-5.10); RED CELL DISTRI WIDTH 15.6 % (0-14.5); WHITE BLOOD COUNT 12.3 10*3/uL (4.8-10.8)
[2017-10-31 08:00] VITALS: BP 126/56
[2017-10-31 09:19] LABS: ALBUMIN 2.7 gm/dl (3.1-4.5); ALKALINE PHOSPHATASE 95 U/L (45-117); BUN 14 mg/dl (7-24); CHLORIDE 104 mmol/L (98-107); CREATININE 0.83 mg/dL (0.55-1.02); POTASSIUM 3.2 mmol/L (3.5-5.1); SGOT/AST 46 IU/L (3-35); SGPT/ALT 23 U/L (12-78); SODIUM 140 mmol/L (136-145)
[2017-10-31 12:00] VITALS: BP 122/42
[2017-10-31 16:00] VITALS: BP 147/58
[2017-10-31 20:00] VITALS: BP 146/58
[2017-11-01] VITALS: BP 156/62
[2017-11-01 04:00] VITALS: BP 102/63
[2017-11-01 08:00] VITALS: BP 149/65
[2017-11-01 08:08] LABS: BASO % 0.1 % (0.0-1.0); EOS # 0.2 10*3/uL (0.0-0.4); EOS % 1.7 % (1.0-4.0); HEMATOCRIT 24.1 % (37.0-47.0); HEMOGLOBIN 7.9 g/dl (12.0-16.0); LYMPH # 1.4 10*3/uL (1.3-4.4); LYMPH % 15.1 % (27.0-41.0); MEAN CELL VOLUME 85.5 fl (81.0-99.0); MEAN CORPUSCULAR HGB CONC 32.8 g/dl (33.0-37.0); MEAN PLATELET VOLUME 10.5 fl (9.6-12.3); MONO # 0.6 10*3/uL (0.1-1.0); MONO % 6.2 % (3.0-9.0); NEUT # 6.8 10*3/uL (2.3-7.9); NEUT % 75.9 % (47.0-73.0); NUCLEATED RED BLOOD CELL 0.2 % (0.0-0.0); PLATELET COUNT AUTOMATED 145 10*3/uL (130-400); RED BLOOD COUNT 2.82 10*6/uL (4.10-5.10); RED CELL DISTRI WIDTH 15.2 % (0-14.5)
[2017-11-01 08:23] LABS: ALBUMIN 2.5 gm/dl (3.1-4.5); ALKALINE PHOSPHATASE 87 U/L (45-117); BUN 12 mg/dl (7-24); CHLORIDE 104 mmol/L (98-107); CREATININE 0.66 mg/dL (0.55-1.02); SGOT/AST 36 IU/L (3-35); SGPT/ALT 25 U/L (12-78); SODIUM 138 mmol/L (136-145); TOTAL PROTEIN 5.9 gm/dL (6.4-8.2)
[2017-11-01 08:24] LABS: POTASSIUM 4.2 mmol/L (3.5-5.1)
[2017-11-01 12:00] VITALS: BP 129/58
[2017-11-01 16:00] VITALS: BP 156/73
[2017-11-01 20:00] VITALS: BP 156/50
[2017-11-02] VITALS: BP 138/51
[2017-11-02 07:29] LABS: BASO % 0.1 % (0.0-1.0); EOS # 0.2 10*3/uL (0.0-0.4); EOS % 2.6 % (1.0-4.0); HEMATOCRIT 23.6 % (37.0-47.0); HEMOGLOBIN 7.6 g/dl (12.0-16.0); LYMPH # 1.7 10*3/uL (1.3-4.4); LYMPH % 22.2 % (27.0-41.0); MEAN CELL VOLUME 86.8 fl (81.0-99.0); MEAN CORPUSCULAR HGB 27.9 pg (27.0-31.0); MEAN CORPUSCULAR HGB CONC 32.2 g/dl (33.0-37.0); MEAN PLATELET VOLUME 11.2 fl (9.6-12.3); MONO # 0.6 10*3/uL (0.1-1.0); MONO % 8.2 % (3.0-9.0); NEUT # 4.9 10*3/uL (2.3-7.9); NEUT % 65.6 % (47.0-73.0); NUCLEATED RED BLOOD CELL 0.3 % (0.0-0.0); PLATELET COUNT AUTOMATED 160 10*3/uL (130-400); RED BLOOD COUNT 2.72 10*6/uL (4.10-5.10); RED CELL DISTRI WIDTH 14.9 % (0-14.5); RETICULOCYTE % 3.61 % (0.50-2.50); WHITE BLOOD COUNT 7.4 10*3/uL (4.8-10.8)
[2017-11-02 07:58] LABS: ALBUMIN 2.5 gm/dl (3.1-4.5); BUN 11 mg/dl (7-24); CHLORIDE 104 mmol/L (98-107); POTASSIUM 3.7 mmol/L (3.5-5.1); SODIUM 138 mmol/L (136-145)
[2017-11-02 08:00] VITALS: BP 150/66
[2017-11-02 08:03] LABS: ALKALINE PHOSPHATASE 86 U/L (45-117); CREATININE 0.58 mg/dL (0.55-1.02); FERRITIN 97.4 ng/mL (10.0-291.0); IRON 24 ug/dL (50-170); SGOT/AST 30 IU/L (3-35); SGPT/ALT 23 U/L (12-78); TOTAL IRON BINDING CAPACITY 177 ug/dl (250-450); TOTAL PROTEIN 5.6 gm/dL (6.4-8.2)
[2017-11-02] MEDS ORDERED: Humalog SQ (11:26)
[2017-11-02] MEDS ORDERED: ENOXAPARIN40 MG/0.2 SC (11:26)
[2017-11-02] MEDS ORDERED: Percocet 325 MG1 TAB PO (11:34)
[2017-11-02 12:00] VITALS: BP 165/66
== END 2017-11-02 16:05 | disposition other institution (70) | DRG 481 ==
LOC: ED 09:38 → EDHOLD 11:09 → 5E 11:09
PROVIDERS: Emergency Medicine; Family Medicine; Orthopaedic Surgery; Registered Nurse; Student in an Organized Health Care Education/Training Program
PROC: 4B02XSZ Measurement of Cardiac Pacemaker, External Approach (ICD-10-PCS; principal; 2017-10-28)
PROC: 0QS604Z Reposition Right Upper Femur with Internal Fixation Device, Open Approach (ICD-10-PCS; principal; 2017-10-28)
PROC: 30253N1 (ICD-10-PCS; 2017-10-30)
DX: S72.21XA Displaced subtrochanteric fracture of right femur, initial encounter for closed fracture (principal); I13.0 Hypertensive heart and chronic kidney disease with heart failure and stage 1 through stage 4 chronic kidney disease, or unspecified chronic kidney disease; E11.22 Type 2 diabetes mellitus with diabetic chronic kidney disease; E11.65 Type 2 diabetes mellitus with hyperglycemia; I48.0 Paroxysmal atrial fibrillation; Z99.81 Dependence on supplemental oxygen; I50.32 Chronic diastolic (congestive) heart failure; E83.41 Hypermagnesemia; M54.12 Radiculopathy, cervical region; S72.141A Displaced intertrochanteric fracture of right femur, initial encounter for closed fracture; E66.9 Obesity, unspecified; E78.5 Hyperlipidemia, unspecified; N18.3 Chronic kidney disease, stage 3 (moderate); E87.6 Hypokalemia; Y92.009 Unspecified place in unspecified non-institutional (private) residence as the place of occurrence of the external cause; M19.90 Unspecified osteoarthritis, unspecified site; W19.XXXA Unspecified fall, initial encounter; K21.9 Gastro-esophageal reflux disease without esophagitis; Z96.651 Presence of right artificial knee joint; F32.9 Major depressive disorder, single episode, unspecified; Z86.73 Personal history of transient ischemic attack (TIA), and cerebral infarction without residual deficits; Z90.49 Acquired absence of other specified parts of digestive tract; Z90.710 Acquired absence of both cervix and uterus; Z95.0 Presence of cardiac pacemaker; Z98.42 Cataract extraction status, left eye; Z82.49 Family history of ischemic heart disease and other diseases of the circulatory system; Z83.3 Family history of diabetes mellitus; Z81.8 Family history of other mental and behavioral disorders; Z82.3 Family history of stroke; Y93.89 Activity, other specified; Y92.098 Other place in other non-institutional residence as the place of occurrence of the external cause; Y99.8 Other external cause status; Z79.84 Long term (current) use of oral hypoglycemic drugs; Z68.29 Body mass index [BMI] 29.0-29.9, adult

== ENCOUNTER → 2017-11-29 | Outpatient (CLI) | payer OTHER ==
[~2017-11-29] MED LIST changes: +BISAC-EVAC10 MG R; +DOCUSATE SODIU100 M2 PO; +ENOXAPARIN40 MG/0.2 SC; +FERROUS SULFAT325 MG PO; +FLOVENT DISKU100 MCG INH; +Humalog SQ; +MECLIZINE HYD12.5 MG PO; +OMEPRAZOLE20 M2 PO; +PERCOCET 5-3251 EACH PO; +Percocet 325 MG1 TAB PO; +REMERON15 M2 PO; +VENTOLIN 02.5 MG/3 M INH
== END | disposition home or self-care (01) ==
LOC: ORTHO 00:45
DX: Z47.89 Encounter for other orthopedic aftercare (principal); S12.9XXD Fracture of neck, unspecified, subsequent encounter; X58.XXXD Exposure to other specified factors, subsequent encounter; Z96.641 Presence of right artificial hip joint

== ENCOUNTER 2017-12-17 03:45 | Inpatient (IN) | payer OTHER ==
[2017-12-17] VITALS (9 sets, daily range): BP systolic 145–191; BP diastolic 71–94
[~2017-12-17] VITALS: Ht 167.6 cm; Wt 77.1 kg
[~2017-12-17 03:45] MED LIST changes: -BISAC-EVAC10 MG R; -DOCUSATE SODIU100 M2 PO; -FERROUS SULFAT325 MG PO; -FLOVENT DISKU100 MCG INH; -MECLIZINE HYD12.5 MG PO; -OMEPRAZOLE20 M2 PO; -PERCOCET 5-3251 EACH PO; -REMERON15 M2 PO; -VENTOLIN 02.5 MG/3 M INH
[2017-12-17 04:15] LABS: BASO % 0.4 % (0.0-1.0); EOS # 0.1 10*3/uL (0.0-0.4); EOS % 2.6 % (1.0-4.0); HEMATOCRIT 36.8 % (37.0-47.0); HEMOGLOBIN 11.9 g/dl (12.0-16.0); LYMPH # 1.8 10*3/uL (1.3-4.4); LYMPH % 33.4 % (27.0-41.0); MEAN CELL VOLUME 88.2 fl (81.0-99.0); MEAN CORPUSCULAR HGB 28.5 pg (27.0-31.0); MEAN CORPUSCULAR HGB CONC 32.3 g/dl (33.0-37.0); MEAN PLATELET VOLUME 10.8 fl (9.6-12.3); MONO # 0.4 10*3/uL (0.1-1.0); MONO % 8.3 % (3.0-9.0); NEUT # 2.9 10*3/uL (2.3-7.9); NEUT % 55.1 % (47.0-73.0); PLATELET COUNT AUTOMATED 153 10*3/uL (130-400); RED BLOOD COUNT 4.17 10*6/uL (4.10-5.10); RED CELL DISTRI WIDTH 13.9 % (0-14.5); WHITE BLOOD COUNT 5.3 10*3/uL (4.8-10.8)
[2017-12-17 04:31] LABS: ALBUMIN 3.4 gm/dl (3.1-4.5); ALKALINE PHOSPHATASE 183 U/L (45-117); BUN 15 mg/dl (7-24); CHLORIDE 100 mmol/L (98-107); CREATININE 0.77 mg/dL (0.55-1.02); POTASSIUM 3.8 mmol/L (3.5-5.1); SGOT/AST 16 IU/L (3-35); SGPT/ALT 21 U/L (12-78); SODIUM 141 mmol/L (136-145); TOTAL PROTEIN 6.9 gm/dL (6.4-8.2)
[2017-12-17 04:31] LABS: ACT PARTIAL THROMBO TIME 22.6 SECONDS (20.8-31.5); INTERNATIONAL NORM RATIO 0.9 (2.0-3.5)
[2017-12-17 04:32] LABS: LIPASE 50 U/L (73-393)
[2017-12-17 04:34] LABS: TROPONIN I < 0.015 ng/ml (<0.045)
[2017-12-17 04:57] LABS: BILIRUBIN NEGATIVE (NEGATIVE); BLOOD TRACE-INTACT (NEGATIVE); CLARITY SL CLOUDY (CLEAR); COLOR YELLOW (YELLOW); GLUCOSE NEGATIVE (NEGATIVE); KETONE NEGATIVE (NEGATIVE); LEUKO ESTERASE 3+ (NEGATIVE); NITRITE NEGATIVE (NEGATIVE); PH 6.5 (5.0-9.0); SPECIFIC GRAVITY <= 1.005 (1.005-1.030); UROBILINOGEN 0.2 E.U./dl (0.2-1.0)
[2017-12-17 05:28] LABS: BACTERIA 4+; WBC TNTC wbc/hpf (0-5)
[2017-12-17] MEDS ORDERED: VENTOLIN 02.5 MG/3 M INH (12:44)
[2017-12-17] MEDS ORDERED: BISAC-EVAC10 MG R (12:45)
[2017-12-17] MEDS ORDERED: DOCUSATE SODIU100 M2 PO (12:45)
[2017-12-17] MEDS ORDERED: FERROUS SULFAT325 MG PO (12:46)
[2017-12-17] MEDS ORDERED: FLOVENT DISKU100 MCG INH (12:47)
[2017-12-17] MEDS ORDERED: MECLIZINE HYD12.5 MG PO (12:49)
[2017-12-17] MEDS ORDERED: OMEPRAZOLE20 M2 PO (12:49)
[2017-12-17] MEDS ORDERED: PERCOCET 5-3251 EACH PO (12:50)
[2017-12-17] MEDS ORDERED: GLUCOPHAGE500 M1 PO (12:50)
[2017-12-17] MEDS ORDERED: REMERON15 M2 PO (12:52)
[2017-12-18] VITALS: BP 146/76; BP 156/70
[2017-12-18 06:40] LABS: BASO % 0.2 % (0.0-1.0); EOS # 0.1 10*3/uL (0.0-0.4); EOS % 1.7 % (1.0-4.0); HEMATOCRIT 34.7 % (37.0-47.0); HEMOGLOBIN 10.9 g/dl (12.0-16.0); LYMPH # 1.2 10*3/uL (1.3-4.4); MEAN CELL VOLUME 87.6 fl (81.0-99.0); MEAN CORPUSCULAR HGB 27.5 pg (27.0-31.0); MEAN CORPUSCULAR HGB CONC 31.4 g/dl (33.0-37.0); MEAN PLATELET VOLUME 11.3 fl (9.6-12.3); MONO # 0.5 10*3/uL (0.1-1.0); MONO % 11.3 % (3.0-9.0); NEUT # 2.8 10*3/uL (2.3-7.9); NEUT % 60.4 % (47.0-73.0); PLATELET COUNT AUTOMATED 129 10*3/uL (130-400); RED BLOOD COUNT 3.96 10*6/uL (4.10-5.10); RED CELL DISTRI WIDTH 13.8 % (0-14.5); WHITE BLOOD COUNT 4.7 10*3/uL (4.8-10.8)
[2017-12-18 06:57] LABS: BUN 10 mg/dl (7-24); CHLORIDE 103 mmol/L (98-107); CREATININE 0.62 mg/dL (0.55-1.02); POTASSIUM 3.2 mmol/L (3.5-5.1); SODIUM 139 mmol/L (136-145)
[2017-12-18 08:00] VITALS: BP 152/71
[2017-12-18 12:00] VITALS: BP 136/70
[2017-12-18 16:00] VITALS: BP 171/72
[2017-12-18 20:00] VITALS: BP 112/67
[2017-12-19] VITALS: BP 147/60
[2017-12-19 06:51] LABS: BUN 10 mg/dl (7-24); CHLORIDE 103 mmol/L (98-107); CREATININE 0.69 mg/dL (0.55-1.02); POTASSIUM 3.3 mmol/L (3.5-5.1); SODIUM 140 mmol/L (136-145)
[2017-12-19 08:00] VITALS: BP 155/81
[2017-12-19 12:00] VITALS: BP 148/67
[2017-12-19 16:00] VITALS: BP 152/74
[2017-12-19 20:00] VITALS: BP 151/73
[2017-12-20] VITALS: BP 124/70
[2017-12-20 08:00] VITALS: BP 130/78
[2017-12-20 12:00] VITALS: BP 149/71
[2017-12-20 16:00] VITALS: BP 155/65
[2017-12-20 20:00] VITALS: BP 155/65
[2017-12-21] VITALS: BP 150/65
[2017-12-21 06:50] LABS: BASO % 0.3 % (0.0-1.0); EOS # 0.1 10*3/uL (0.0-0.4); HEMATOCRIT 34.3 % (37.0-47.0); HEMOGLOBIN 10.9 g/dl (12.0-16.0); LYMPH # 1.7 10*3/uL (1.3-4.4); LYMPH % 26.9 % (27.0-41.0); MEAN CELL VOLUME 87.3 fl (81.0-99.0); MEAN CORPUSCULAR HGB 27.7 pg (27.0-31.0); MEAN CORPUSCULAR HGB CONC 31.8 g/dl (33.0-37.0); MEAN PLATELET VOLUME 11.6 fl (9.6-12.3); MONO # 0.6 10*3/uL (0.1-1.0); NEUT % 61.5 % (47.0-73.0); PLATELET COUNT AUTOMATED 123 10*3/uL (130-400); RED BLOOD COUNT 3.93 10*6/uL (4.10-5.10); RED CELL DISTRI WIDTH 13.8 % (0-14.5); WHITE BLOOD COUNT 6.4 10*3/uL (4.8-10.8)
[2017-12-21 08:00] VITALS: BP 149/98
[2017-12-21] MEDS ORDERED: PERCOCET 5-3251 EACH PO (12:51)
[2017-12-21] MEDS ORDERED: CIPRO500 MG PO (12:52)
[2017-12-21 16:00] VITALS: BP 160/88
[2017-12-21 20:00] VITALS: BP 154/69
[2017-12-22] VITALS: BP 155/71
[2017-12-22 07:45] VITALS: BP 110/60
[2017-12-22 08:00] VITALS: BP 155/83
[2017-12-22] MEDS ORDERED: PERCOCET 5-3251 EACH PO (13:57)
== END 2017-12-22 14:40 | disposition other institution (70) | DRG 690 ==
LOC: ED 03:45 → 5E 06:16 → EDHOLD 06:16 → 5E 06:32
PROVIDERS: Internal Medicine; Student in an Organized Health Care Education/Training Program
DX: N39.0 Urinary tract infection, site not specified (principal); E87.2 Acidosis; E11.65 Type 2 diabetes mellitus with hyperglycemia; E11.22 Type 2 diabetes mellitus with diabetic chronic kidney disease; R16.0 Hepatomegaly, not elsewhere classified; I50.32 Chronic diastolic (congestive) heart failure; I13.0 Hypertensive heart and chronic kidney disease with heart failure and stage 1 through stage 4 chronic kidney disease, or unspecified chronic kidney disease; J98.11 Atelectasis; Z68.22 Body mass index [BMI] 22.0-22.9, adult; I48.0 Paroxysmal atrial fibrillation; D64.9 Anemia, unspecified; J41.0 Simple chronic bronchitis; R31.29 Other microscopic hematuria; K86.9 Disease of pancreas, unspecified; R79.82 Elevated C-reactive protein (CRP); M19.90 Unspecified osteoarthritis, unspecified site; E78.5 Hyperlipidemia, unspecified; K21.9 Gastro-esophageal reflux disease without esophagitis; F32.9 Major depressive disorder, single episode, unspecified; E55.9 Vitamin D deficiency, unspecified; R74.8 Abnormal levels of other serum enzymes; K59.00 Constipation, unspecified; E87.6 Hypokalemia; B96.1 Klebsiella pneumoniae [K. pneumoniae] as the cause of diseases classified elsewhere; N18.3 Chronic kidney disease, stage 3 (moderate); E66.9 Obesity, unspecified; Z96.651 Presence of right artificial knee joint; Z66 Do not resuscitate; Z51.5 Encounter for palliative care; Z79.899 Other long term (current) drug therapy; Z99.81 Dependence on supplemental oxygen; Z79.82 Long term (current) use of aspirin; Z22.322 Carrier or suspected carrier of Methicillin resistant Staphylococcus aureus; Z79.4 Long term (current) use of insulin; Z86.73 Personal history of transient ischemic attack (TIA), and cerebral infarction without residual deficits; Z90.49 Acquired absence of other specified parts of digestive tract; Z98.42 Cataract extraction status, left eye; Z90.89 Acquired absence of other organs; Z90.710 Acquired absence of both cervix and uterus; Z82.49 Family history of ischemic heart disease and other diseases of the circulatory system; Z82.3 Family history of stroke; Z83.3 Family history of diabetes mellitus; Z81.8 Family history of other mental and behavioral disorders; Z80.8 Family history of malignant neoplasm of other organs or systems

== ENCOUNTER → 2017-12-27 | Outpatient (CLI) | payer OTHER ==
[~2017-12-27] MED LIST changes: +BISAC-EVAC10 MG R; +DOCUSATE SODIU100 M2 PO; +FERROUS SULFAT325 MG PO; +FLOVENT DISKU100 MCG INH; +MECLIZINE HYD12.5 MG PO; +OMEPRAZOLE20 M2 PO; +PERCOCET 5-3251 EACH PO; +REMERON15 M2 PO; +VENTOLIN 02.5 MG/3 M INH
== END | disposition home or self-care (01) ==
LOC: ORTHO 08:02
DX: S72.001D Fracture of unspecified part of neck of right femur, subsequent encounter for closed fracture with routine healing (principal); X58.XXXD Exposure to other specified factors, subsequent encounter

== ENCOUNTER 2018-03-05 21:11 | Emergency (ER) | payer OTHER ==
[~2018-03-05] VITALS: Ht 162.5 cm; Wt 74.8 kg
[2018-03-05] MEDS ORDERED: ACTOS15 M1 PO (21:15)
[2018-03-05] MEDS ORDERED: TRAD5TAB1 PO (21:24)
[2018-03-05 21:51] LABS: BASO % 0.2 % (0.0-1.0); EOS # 0.2 10*3/uL (0.0-0.4); EOS % 2.8 % (1.0-4.0); HEMATOCRIT 31.6 % (37.0-47.0); HEMOGLOBIN 9.9 g/dl (12.0-16.0); LYMPH # 1.3 10*3/uL (1.3-4.4); LYMPH % 20.8 % (27.0-41.0); MEAN CORPUSCULAR HGB 27.6 pg (27.0-31.0); MEAN CORPUSCULAR HGB CONC 31.3 g/dl (33.0-37.0); MEAN PLATELET VOLUME 11.1 fl (9.6-12.3); MONO # 0.5 10*3/uL (0.1-1.0); MONO % 8.6 % (3.0-9.0); NEUT # 4.2 10*3/uL (2.3-7.9); NEUT % 67.3 % (47.0-73.0); PLATELET COUNT AUTOMATED 115 10*3/uL (130-400); RED BLOOD COUNT 3.59 10*6/uL (4.10-5.10); RED CELL DISTRI WIDTH 14.3 % (0-14.5); WHITE BLOOD COUNT 6.2 10*3/uL (4.8-10.8)
[2018-03-05 22:06] LABS: ALBUMIN 3.5 gm/dl (3.1-4.5); ALKALINE PHOSPHATASE 117 U/L (45-117); BUN 16 mg/dl (7-24); CHLORIDE 101 mmol/L (98-107); CREATININE 0.97 mg/dL (0.55-1.02); LIPASE 53 U/L (73-393); POTASSIUM 3.7 mmol/L (3.5-5.1); SGOT/AST 17 IU/L (3-35); SGPT/ALT 18 U/L (12-78); SODIUM 137 mmol/L (136-145); TOTAL PROTEIN 7.4 gm/dL (6.4-8.2)
[2018-03-05 22:07] LABS: BILIRUBIN NEGATIVE (NEGATIVE); BLOOD TRACE-INTACT (NEGATIVE); CLARITY CLEAR (CLEAR); COLOR YELLOW (YELLOW); GLUCOSE NEGATIVE (NEGATIVE); KETONE NEGATIVE (NEGATIVE); LEUKO ESTERASE NEGATIVE (NEGATIVE); NITRITE NEGATIVE (NEGATIVE); SPECIFIC GRAVITY <= 1.005 (1.005-1.030); UROBILINOGEN 0.2 E.U./dl (0.2-1.0)
[2018-03-05 22:20] LABS: BACTERIA TRACE; EPITHELIAL CELLS 0-2; RBC 0-2 rbc/hpf (0-2); WBC 0-2 wbc/hpf (0-5)
[2018-03-06] MEDS ORDERED: CITROMA296 ML PO (00:32)
[2018-03-06 00:39] VITALS: BP 151/68
== END 2018-03-06 00:58 ==
LOC: ED 21:11
PROVIDERS: Nurse Practitioner Family
DX: K59.00 Constipation, unspecified (principal); J44.9 Chronic obstructive pulmonary disease, unspecified; K21.9 Gastro-esophageal reflux disease without esophagitis; E78.5 Hyperlipidemia, unspecified; M19.90 Unspecified osteoarthritis, unspecified site; I11.0 Hypertensive heart disease with heart failure; I50.30 Unspecified diastolic (congestive) heart failure; E11.9 Type 2 diabetes mellitus without complications; Z79.4 Long term (current) use of insulin; Z86.73 Personal history of transient ischemic attack (TIA), and cerebral infarction without residual deficits; Z79.899 Other long term (current) drug therapy